=== PATIENT | male | born 1980 | race Caucasian/White ===

== ENCOUNTER 2020-05-17 12:24 | Emergency (ER) | payer OTHER, SELFPAY ==
[2020-05-17 12:35] VITALS: BP 186/114; PULSE 91; RESP 16; TEMP 36.7; O2SAT 99
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
== END 2020-05-17 12:59 | disposition home or self-care (01) ==
PROVIDERS: Emergency Provider Nurse Practitioner Family; PCP Family Medicine
DX: H16.133 Photokeratitis, bilateral (principal)
CPT/HCPCS: 99213; G0463

== ENCOUNTER 2021-02-17 10:01 | Emergency (ER) | payer OTHER, SELFPAY ==
--- NOTE | ~2021-02-17 | XR_ITS ---
XR facial bones min 3V 02/17/2021 10:42 Indication: Trauma to the right infraorbital region Procedure: 3 views of the facial bones Comparison: No prior studies for comparison. Findings: No fracture, subluxation or dislocation. Rightward nasal septal deviation. Orbits appear to be intact. The paranasal sinuses are pneumatized. No significant soft tissue abnormality. No foreign bodies. Mastoids are pneumatized. Mandible is grossly unremarkable. Impression: 1: No acute fracture identified. If there is continued concern for subtle facial fracture, correlatio n with CT recommended. Reviewed, dictated and finalized at location B. Impression: 1: No acute fracture identified. If there is continued concern for subtle facia l fracture, correlation with CT recommended.
[2021-02-17 10:12] VITALS: BP 176/104; PULSE 97; RESP 18; TEMP 36.6; O2SAT 100
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
[2021-02-17] MEDS: TETANUS,DIPHTHERIA,AC PERTUSSIS ADULT (0.5 ML) BOOSTRIX IM (10:38)
== END 2021-02-17 11:26 | disposition home or self-care (01) ==
PROVIDERS: Emergency Provider Nurse Practitioner Family
DX: S01.81XA Laceration without foreign body of other part of head, initial encounter (principal); W27.8XXA Contact with other nonpowered hand tool, initial encounter; Z23 Encounter for immunization; I10 Essential (primary) hypertension
CPT/HCPCS: 12011; 70150; 90471; 90715; 99213; G0463

== ENCOUNTER 2022-06-23 10:37 | Emergency (ER) | payer OTHER, SELFPAY ==
[2022-06-23 10:48] VITALS: BP 195/108; PULSE 79; RESP 16; TEMP 35.9; O2SAT 99
[2022-06-23 11:07] VITALS: BP 188/120
--- NOTE | 2022-06-23 11:14 | ED.HA ---
HPI - Headache General Chief Complaint: Headache Stated Complaint: Multiple Compliants Time Seen by Provider: 06/23/22 11:15 Source: patient and RN notes reviewed Mode of arrival: ambulatory Limitations: no limitations History of Present Illness HPI Narrative: 42-year-old male presented for complaint of headache and nausea, onset today. He endorses the pain is across the frontal part of his head from bahai to bahai. He denies vision changes, dizziness, vomiting, chest pain or palpitations. Endorses a history of hypertension and does not take his prescribed medications due to the side effect of ED. He does not recall the names of the medication he is supposed to be taking. He states he was on lisinopril and it was changed about 3 times. His P[facility]. He does not check his blood pressure at home. Related Data Allergies Allergy/AdvReac Type Severity Reaction Status Date / Time No Known Allergies Allergy Verified 06/23/22 10:42 Review of Systems Review of Systems: CONSTITUTIONAL: Denies body aches, fever, chills, or sweats. EYES: Denies visual changes, redness, or discharge. ENT: Denies rhinorrhea, congestion, sore throat, or otalgia. CARDIOVASCULAR: Denies chest pain, palpitations, or edema. RESPIRATORY: Denies cough or dyspnea. GASTROINTESTINAL: Denies abdominal pain, vomiting, or diarrhea. GENITOURINARY: Denies dysuria or hematuria. SKIN: Denies rash, or wounds. MUSCULOSKELETAL: Denies back pain, joint pain, or myalgia. NEUROLOGIC: Endorses headache, denies numbness, tingling, or weakness, or dizziness All systems reviewed & are unremarkable except as noted in HPI and below PMFSH Comments At time of signature, I have reviewed and agree with nursing past medical, surgical, social and family history unless otherwise noted. Please see nursing chart for further information. There is no relevant family history pertinent to the presenting complaint Exam Narrative: GENERAL: Well-appearing HEAD: Normocephalic, atraumatic. EYES: PERRLA, EOMI. ENT: Mucous membranes pink and moist. No rhinorrhea. CHEST: No respiratory distress. Clear to auscultation. HEART: Regular rate and rhythm. No murmur appreciated. Normal peripheral pulses. ABDOMEN: Soft, nontender, nondistended, normal active bowel sounds. EXTREMITIES: Normal range of motion. No edema. SKIN: Warm, dry, no rash. Capillary refill normal. Normal skin turgor. NEURO:No focal deficits. Alert and oriented x3. EOMs intact without nystagmus. No facial droop/asymmetry noted bilaterally. Grimace intact. Intact sensation in face. Hearing intact bilaterally. Shoulder shrug intact. Strength 5/5 bilateral upper extremities. Ambulatory exam with a normal based, steady gait. PSYCH: Normal affect. No signs of depression or anxiety. Course Course Emergency Course: Patient is aware of diagnosis, understands and agrees to treatment plan. Anticipatory guidance given. Portions of this record may have been created with voice recognition software Level of Care: Express Care Visit Vital Signs Vital signs: Vital Signs Temperature 96.6 F L 06/23/22 10:48 Pulse Rate 79 06/23/22 10:48 Respiratory Rate 16 06/23/22 10:48 Blood Pressure 195/108 H 06/23/22 10:48 Pulse Oximetry 99 06/23/22 10:48 Oxygen Delivery Room Air 06/23/22 10:48 Temperature 96.6 F L 06/23/22 10:48 Pulse Rate 79 06/23/22 10:48 Respiratory Rate 16 06/23/22 10:48 Blood Pressure 188/120 H 06/23/22 11:07 Pulse Oximetry 99 06/23/22 10:48 Oxygen Delivery Room Air 06/23/22 10:48 Transfer Transfered to: [facility] Transportation: Other (private vehicle) Transfer rationale: Pt is agreeable to transfer to ER for further evaluation and treatment of hypertensive urgency. Requests transfer to [facility] via private vehicle. Risks of transportation reviewed with pt including injury, worsening of condition and . v/u. will be driving pt; Report called
--- NOTE | 2022-06-23 11:31 | ECG_ITS ---
Measurements Intervals [place] Rate: 82 P: 46 WA: 162 QRS: 19 QRSD: 92 T: 178 QT: 402 QTc: 472 Interpretive Statements SINUS RHYTHM POSSIBLE LEFT ATRIAL ENLARGEMENT [-0.1mV P WAVE IN V1/V2] LEFT VENTRICULAR HYPERTROPHY AND ST-T CHANGE [VOLTAGE CRITERIA PLUS ST/T ABNORMALITY] NO PREVIOUS ECG AVAILABLE FOR COMPARISON Electronically Signed On 06-23-2022 15:27:35 CDT by Svetlana Martinez M.D.
== END 2022-06-23 11:48 | disposition short-term general hospital (02) ==
PROVIDERS: Emergency Provider Nurse Practitioner Family; PCP Family Medicine
DX: R51.9 Headache, unspecified (principal); I10 Essential (primary) hypertension
CPT/HCPCS: 93005; 99213; G0463

== ENCOUNTER 2022-07-31 11:41 | Emergency (ER) | payer OTHER, SELFPAY ==
[2022-07-31 13:10] VITALS: BP 143/91; PULSE 71; RESP 12; TEMP 36.5; O2SAT 100
--- NOTE | 2022-07-31 13:49 | ED.GENADULT ---
HPI - General Adult General Chief complaint: Upper Respiratory Infection Stated complaint: cough Time Seen by Provider: 07/31/22 13:49 Source: patient Mode of arrival: ambulatory Limitations: no limitations History of Present Illness HPI narrative: 42-year-old male patient presents to the [facility] with complaints of a cough for the past 4 days. Along with stuffy nose. Patient denies any chest pain or shortness breath. Patient states he recently quit smoking at the beginning the month. Patient unsure if he is vaccinated against COVID or flu. Patient states he has been taking Mucinex for his symptoms. Patient is refusing to get tested today for COVID-19. Related Data Home Medications Medication Instructions Recorded Confirmed amlodipine 5 mg-benazepril 10 mg 1 cap PO DAILY 07/31/22 07/31/22 capsule Allergies Allergy/AdvReac Type Severity Reaction Status Date / Time No Known Allergies Allergy Verified 07/31/22 12:54 Review of Systems Review of Systems: CONSTITUTIONAL: Denies fever, chills, or sweats. EYES: Denies visual changes, redness, or discharge. ENT: Positive rhinorrhea, congestion, denies sore throat, or otalgia. CARDIOVASCULAR: Denies chest pain, palpitations, or edema. RESPIRATORY: Positive cough, dyspnea. GASTROINTESTINAL: Denies abdominal pain, nausea, vomiting, or diarrhea. GENITOURINARY: Denies dysuria or hematuria. SKIN: Denies rash or itching. MUSCULOSKELETAL: Denies back pain, joint pain, or myalgia. NEUROLOGIC: Denies headache, numbness, or weakness. PSYCHIATRIC: Denies anxiety or depression. [facility] Past Medical History Medical History (Updated 07/31/22 @ 14:35 by KARLI Leigh) Hypertension Surgical History Surgical History (Updated 07/31/22 @ 13:51 by KARLI Leigh) History of orthopedic surgery Right ACL Comments At the time of my signature I agree with nursing past medical history, surgical, social, and family history. There is no relevant family history pertinent to the presenting complaint. Exam Narrative: GENERAL: Well-appearing, well-nourished, and in no acute distress. HEAD: Normocephalic, atraumatic. EYES: PERRLA and EOMI. ENT: Nares clear, no rhinorrhea or epistaxis. Mucous membranes moist. NECK: Supple. No lymphadenopathy CHEST: Clear to auscultation. No respiratory distress. HEART: Regular rate and rhythm. No murmur heard. Normal peripheral pulses. ABDOMEN: Soft, nontender, nondistended, normal active bowel sounds. EXTREMITIES: Normal range of motion. No edema. SKIN: Warm, dry, no rash. NEURO: No focal deficits. Alert and oriented x3. Course Course Level of Care: Express Care Visit Reevaluation(s) Reevaluation #1: Re-evaluate patient advised him that his influenza test was negative today. Discussed with him we will discharge him home with some Tesfavianon Perles to help with his cough. Discussed with patient the viruses can last anywhere from 7-10 days however he continues to have symptoms past 2 weeks I would advise him to follow-up with his primary doctor. Patient verbalized understanding denies any other questions or concerns at this time. Date: 07/31/22 Time: 14:38 Vital Signs Vital signs: Vital signs reviewed The patient has been informed that they may have pre-hypertension or Hypertension based on a BP reading in the department. I recommend that the patient call the primary care provider listed on their discharge instructions or a physician of their choice this week to arrange follow up for further evaluation of possible pre-hypertension or Hypertension Medical Decision Making MDM Narrative Medical decision making narrative: Discussed with patient our plan of care today is to test him for influenza. Patient is refusing to let assessing for COVID-19. I will reassess him once this has resulted Differential Diagnosis Differential Diagnosis: Differential diagnosis: Allergic rhinitis, chronic sinusitis, tonsillitis, acute sinusitis, infe
== END 2022-07-31 14:39 | disposition home or self-care (01) ==
PROVIDERS: Emergency Provider Nurse Practitioner Family
DX: B34.9 Viral infection, unspecified (principal); I10 Essential (primary) hypertension; Z87.891 Personal history of nicotine dependence
CPT/HCPCS: 87804; 99213; G0463

== ENCOUNTER 2023-01-01 09:45 | Emergency (ER) | payer OTHER, SELFPAY ==
--- NOTE | 2023-01-01 09:52 | ED.MALEGU ---
HPI - Male Genitourinary General Chief complaint: Urogenital-Male Stated complaint: blood in urine Time Seen by Provider: 01/01/23 09:52 Source: patient Mode of arrival: ambulatory Limitations: no limitations History of Present Illness HPI Narrative: Patient is a 42-year-old male that presents with right flank pain that started this morning. Patient having difficulty urinating due to pain. States he has urgency but is unable to go. Reports nicki blood and urine. Denies any history of kidney stones. Denies any fever, chills, nausea, vomiting, diarrhea. Denies any headache, changes in vision, shortness of breath. Related Data Home Medications Medication Instructions Recorded Confirmed amlodipine 5 mg-benazepril 10 mg 1 cap PO DAILY 07/31/22 07/31/22 capsule Allergies Allergy/AdvReac Type Severity Reaction Status Date / Time No Known Allergies Allergy Verified 01/01/23 09:52 Review of Systems Review of Systems: All systems reviewed & are unremarkable except as noted in HPI and below Constitutional: Constitutional: Denies body ache(s), Denies fever(s), Denies headache(s), Denies malaise and Denies weakness Eyes: Eyes: Denies loss of vision ENT: Denies otalgia, Denies headache(s), Denies nasal discharge, Denies sinus pain and Denies sore throat Cardiovascular: Cardiovascular: Denies chest pain, Denies irregular heart rhythm and Denies dyspnea Respiratory: Respiratory: Denies dyspnea Gastrointestinal: Gastrointestinal: Denies abdominal pain, Denies melena, Denies hematochezia, Denies diarrhea, Denies nausea and Denies vomiting Genitourinary: Genitourinary: Reports hematuria, Reports flank pain and Reports urinary urgency Musculoskeletal: Musculoskeletal: Denies back pain, Denies myalgias and Denies arthralgias Integumentary/Breasts: Skin/Breast: Denies pruritus and Denies rash Neurologic: Denies headache(s), Denies loss of vision and Denies weakness Psychiatric: Psychiatric: Reports no additional psychiatric complaints [facility] Past Medical History Medical History (Updated 01/01/23 @ 10:28 by Eryn Peres APRN) Hypertension Surgical History Surgical History (Updated 07/31/22 @ 13:51 by KARLI Leigh) History of orthopedic surgery Right ACL Comments At time of signature, agree with nursing past medical, surgical, social and family history. There is no relevant family history pertinent to the presenting complaint. Exam Const: General: cooperative, healthy appearing, comfortable, no acute distress and well nourished Nutritional Appearance: well nourished Orientation/consciousness: patient oriented x3 Limitations: no limitations HENMT: Head: normal to inspection, normocephalic and atraumatic Ears: external ears normal Face/Nose/Sinus: Normal external nose present, normal facial exam and face symmetric Face and sinus: normal facial exam and face symmetric Mouth: Yes lip normal Eyes: General: appearance normal, both eyes and all related structures Alignment and Position: alignment normal and position normal Periorbital: periorbital findings normal Eyelids: eyelids normal Pupils: Equal, round and reactive pupils present EOM: EOMs intact bilaterally Neck: Neck: normal visual inspection and full ROM Chest: Chest palpation & inspection: normal inspection of the chest Resp: Effort & Inspection: normal respiratory effort and able to speak in complete sentences Auscultation: clear to auscultation bilaterally Cardio: Rate: regular rate Rhythm: regular rhythm Heart sounds: S1 normal heart sound present and S2 normal heart sound present GI: Inspection: normal to inspection : General: Yes CVA tenderness on the right Skin: General skin exam: normal color and no rashes or lesions noted Neuro: General: patient oriented x3 and moves all extremities Cranial nerves: Yes Equal, round and reactive pupils present Speech: normal speech Gait exam (Neuro): Normal gait present Extrem
[2023-01-01 10:00] VITALS: BP 266/140; PULSE 80; RESP 16; TEMP 36.6; O2SAT 99
== END 2023-01-01 10:23 | disposition short-term general hospital (02) ==
PROVIDERS: Emergency Provider Nurse Practitioner Family
DX: R31.9 Hematuria, unspecified (principal); I10 Essential (primary) hypertension
CPT/HCPCS: 81003; 99212; G0463

== ENCOUNTER 2023-01-01 11:06 | Emergency (ER) | payer OTHER, SELFPAY ==
[2023-01-01] VITALS (16 sets, daily range): BP systolic 214–243; BP diastolic 119–142; PULSE 82–87; RESP 16–20; TEMP 36.5; O2SAT 96–100
--- NOTE | ~2023-01-01 | CT_ITS ---
EXAMINATION: CT abdomen pelvis wo con DATE: 01/01/2023 12:31 INDICATION: Hematuria, flank pain TECHNIQUE: Computed tomography (CT) of the abdomen and pelvis was performed without intravenous contr ast. The dose-length product (DLP) was 581.79 mGy-cm. Automated exposure control and iterative recons truction technique were employed. COMPARISON: None FINDINGS: Minimal dependent atelectasis is present in the lung bases. The heart size is normal. The l iver, pancreas, gallbladder, and right adrenal gland are normal. There is mild thickening of the left adrenal gland which maintains its adreniform shape. There is a 1.5 cm cyst or lymphangioma in the up per pole of the spleen. There is mild right hydroureteronephrosis mild peripelvic and periureteral fa t stranding. No stones are identified in the kidneys, ureters, or bladder. The left kidney is unremar kable. No pathologically enlarged abdominal or pelvic lymph nodes are identified. No free intraperito deirdre gas or evidence of bowel obstruction. The appendix is normal. There is mild lumbar spondylosis. There are small umbilical hernia containing fat. IMPRESSION: 1. Mild right hydroureteronephrosis without visible urolithiasis. Findings could reflect recent passa ge of right-sided stone. Reviewed, dictated and finalized at location A. IMPRESSION: 1. Mild right hydroureteronephrosis without visible urolithiasis. Findings coul d reflect recent passage of right-sided stone.
[2023-01-01] MEDS: MORPHINE SULFATE (*CRX) 4 MG/ML INJ IV PUSH (11:35)
[2023-01-01 11:41] LABS: Basophils Percent Auto 0.3 % (0.2-1.2); Eosinophils Absolute Auto 0.2 K/mm3 (0-0.3); Eosinophils Percent Auto 1.7 % (0-4.4); Hematocrit 43.7 % (42.0-52.0); Hemoglobin 15.3 g/dL (14.0-18.0); Immature Granulocyte Absolute 0.03 K/mm3 (0.00-0.031); Immature Granulocyte Percent A 0.3 % (0-0.5); Lymphocytes Absolute Auto 0.87 K/mm3 (0.9-3.2); Mean Corpuscular Hemoglobin 30.2 pg (26-34); Mean Corpuscular Volume 86.4 fl (80-100); Mean Platelet Volume 10.2 fl (7.4-10.4); Monocytes Absolute Auto 0.7 K/mm3 (0.1-0.6); Monocytes Percent Auto 8.2 % (2.6-8.5); Neutrophils Absolute Auto 6.9 K/mm3 (1.3-6.7); Neutrophils Percent Auto 79.5 % (45.5-73.1); Platelet Count Result 177 k/mm3 (150-375); Red Blood Count 5.06 M/mm3 (4.6-6.20); Red Cell Distribution Width 12.3 % (11.5-14.5); White Blood Count 8.7 K/mm3 (4.5-10.0)
[2023-01-01 11:44] LABS: Bacteria Urine None Seen /hpf; Non Pathogenic Casts 0-2; RBC Urine >100 /hpf (0-2); Squamous Epithelial Cell Urine None seen /hpf (Few); WBC Urine 0-5 /hpf
[2023-01-01 11:49] LABS: Bilirubin Urine Negative (Negative); Blood Urine 3+ (Negative); Glucose Urine UA Negative (Negative); Ketones Urine Negative (Negative); Leukocyte Esterase Ur Trace LEU/UL (Negative); Nitrate Urine Negative (Negative); Protein Urine 3+ mg/dL (Negative); Specific Grav Ur 1.007 (1.001-1.035); Urobilinogen Urine 0.2 mg/dL (<2.0); pH Urine 7.5 (5.0-9.0)
[2023-01-01 11:54] LABS: Partial Thromboplastin Time 26.4 SECONDS (22.3-36.8); Prothrombin Time 12.6 Seconds (11.1-14.7)
[2023-01-01 11:55] LABS: Appearance Urine Slightly Cloudy (Clear); Color Urine Light Red (Yellow)
[2023-01-01 11:56] LABS: Add Urine Microscopic? YES
[2023-01-01 12:19] LABS: Alanine Aminotransferase 27 U/L (6-50); Albumin Level 4.7 g/dL (3.5-5.1); Alkaline Phosphatase 62 U/L (38-126); Anion Gap 7 mmol/L (8-16); Aspartate Amino Transferase 23 U/L (17-59); Blood Urea Nitrogen 26 mg/dL (9-20); Calcium 9.4 mg/dL (8.4-10.2); Carbon Dioxide 32 mmol/L (22-30); Chloride 100 mmol/L (98-107); Estimated CRCL calculation 64 ml/min; Estimated Glomerular Filt Rate 48; Glucose 120 mg/dL (65-110); Lipase 90 U/L (23-300); Potassium 3.7 mmol/L (3.4-5.0); Sodium 139 mmol/L (137-145)
[2023-01-01 12:33] LABS: Bilirubin,Total 0.6 mg/dL (0.2-1.3)
--- NOTE | 2023-01-01 13:04 | ED.GENADULT ---
HPI - General Adult General Chief complaint: Urogenital-Male Stated complaint: hematuria Time Seen by Provider: 01/01/23 11:27 History of Present Illness HPI narrative: Patient is a 42-year-old male who presents ER with right flank pain from urgent care. Patient started having bloody urine 3 days ago. Today he developed right flank pain with it. Is no fevers chills or sweats. No blood pressure was found to be significantly elevated which is also part of his referral here. Reports he has been on medication for several weeks. He is unsure what he takes. No chest pain or chest pressure. No exertional shortness of breath or chest pain. Upon my evaluation patient is passed a bloody mass into his urine cup. It may represent a large kidney stone. There is tissue attached to it. Related Data Home Medications Medication Instructions Recorded Confirmed amlodipine 5 mg-benazepril 10 mg 1 cap PO DAILY 07/31/22 01/01/23 capsule Allergies Allergy/AdvReac Type Severity Reaction Status Date / Time No Known Allergies Allergy Verified 01/01/23 09:52 Review of Systems Constitutional: Constitutional: Denies chills, Denies fatigue and Denies fever(s) ENT: Denies nasal congestion and Denies sore throat Cardiovascular: Cardiovascular: Denies chest pain, Denies rapid heart rate and Denies radiating jaw, neck or arm pain Respiratory: Respiratory: Denies cough and Denies dyspnea Gastrointestinal: Gastrointestinal: Reports abdominal pain, Denies diarrhea, Denies nausea and Denies vomiting Genitourinary: Genitourinary: Reports hematuria, Denies dysuria and Reports urinary frequency PMFSH Past Medical History Medical History (Updated 01/01/23 @ 13:28 by Tigre Valerio MD) Hypertension Surgical History Surgical History (Updated 07/31/22 @ 13:51 by KARLI Leigh) History of orthopedic surgery Right ACL Exam Narrative: GENERAL: Well-appearing, well-nourished, and in no acute distress. HEAD: Normocephalic, atraumatic. ENT: Mucous membranes moist. CHEST: Clear to auscultation. No respiratory distress. HEART: Regular rate and rhythm. Normal peripheral pulses. ABDOMEN: Soft, nontender, nondistended. EXTREMITIES: Normal range of motion. No edema. SKIN: Warm, dry, no rash. NEURO: Alert and oriented x3. PSYCH: Normal mood and affect. Course Course Emergency Course: Pain improved with morphine. Resting comfortably. He has passed the stone. Recommend follow-up with his PCP. I will prescribe him a short course of his amlodipine, he would not be started on benazepril due to elevated creatinine. Educated on need for follow-up with PCP and repeat blood testing. Additionally a chart review showed his previous history of significantly elevated blood pressures which seem to be chronic for him if he is not on his medication. Vital Signs Vital signs: Vital Signs Temperature 97.7 F 01/01/23 11:16 Pulse Rate 87 01/01/23 11:16 Respiratory Rate 16 01/01/23 11:16 Blood Pressure 233/132 H 01/01/23 11:16 Pulse Oximetry 98 01/01/23 11:16 Oxygen Delivery Room Air 01/01/23 11:16 Temperature 97.7 F 01/01/23 11:16 Pulse Rate 83 01/01/23 11:29 Respiratory Rate 20 01/01/23 11:29 Blood Pressure 243/133 H 01/01/23 11:29 Pulse Oximetry 100 01/01/23 11:29 Oxygen Delivery Room Air 01/01/23 11:16 Medical Decision Making Vital Signs Vital Signs: Vital Signs Temperature 97.7 F 01/01/23 11:16 Pulse Rate 87 01/01/23 11:16 Respiratory Rate 16 01/01/23 11:16 Blood Pressure 233/132 H 01/01/23 11:16 Pulse Oximetry 98 01/01/23 11:16 Oxygen Delivery Room Air 01/01/23 11:16 Temperature 97.7 F 01/01/23 11:16 Pulse Rate 83 01/01/23 11:29 Respiratory Rate 20 01/01/23 11:29 Blood Pressure 243/133 H 01/01/23 11:29 Pulse Oximetry 100 01/01/23 11:29 Oxygen Delivery Room Air 01/01/23 11:16 Lab Data 01/01/23 11:31 01/01/23 11:31
== END 2023-01-01 13:47 | disposition home or self-care (01) ==
PROVIDERS: Emergency Provider Emergency Medicine; PCP Physician Assistant
DX: N13.2 Hydronephrosis with renal and ureteral calculous obstruction (principal); I10 Essential (primary) hypertension
CPT/HCPCS: 36415; 74176; 80053; 81001; 81003; 83690; 85025; 85610; 85730; 96374; 99284; J2270

== ENCOUNTER 2023-01-14 18:46 | Observation (INO) | payer OTHER, SELFPAY ==
--- NOTE | ~2023-01-14 | XR_ITS ---
EXAMINATION: XR chest 1V portable Exam Date/Time: 01/14/2023 20:00 CDT HISTORY: dyspnea Comparison: None available. RESULT: Lines, tubes, and devices: None. Lungs and pleura: Diffuse reticulonodular opacities. Cardiomediastinal silhouette: Stable. Other: No acute osseous or upper abdominal finding. IMPRESSION: Pulmonary opacities may represent bronchiolitis, as can be seen with atypical infection, asthma, aspi ration, and small airways disease. Reviewed, dictated and finalized at location K. IMPRESSION: Pulmonary opacities may represent bronchiolitis, as can be seen with atypical i nfection, asthma, aspiration, and small airways disease.
--- NOTE | ~2023-01-14 | CT_ITS ---
EXAMINATION: CTA chest PE protocol DATE: 01/14/2023 21:46 INDICATION: dyspnea, elevated troponin, elevated BNP eval PE TECHNIQUE: Computed tomography angiography (CTA) of the chest was performed with 100 mL Omnipaque-350 intravenous contrast timed to evaluate the pulmonary arteries. Coronal maximum intensity projection 3D-reconstructions were created by the technologist. The dose-length product (DLP) was 618.18 mGy-cm. Automated exposure control and iterative reconstruction technique were employed. COMPARISON: X-ray chest, same date; CT abdomen and pelvis 01/01/2023. FINDINGS: Lung parenchyma and airways: Mild diffuse reticulonodular opacities. Mild dependent atelectasis. Calc ified left lower lobe granulomas. Pleura: Unremarkable. Thoracic inlet, axillae and chest wall: Unremarkable. Thoracic aorta: Normal. Mediastinum: Right hilar lymphadenopathy. Mediastinal lymphadenopathy. Borderline enlarged left hilar lymph nodes. Heart and pericardium: Normal. Coronary artery calcifications: Absent. Upper abdomen: No significant finding. Bones: No acute osseous finding. Pulmonary arteries: Study quality: Adequate. No pulmonary emboli detected. IMPRESSION: No CT evidence of acute pulmonary embolus. Mild respiratory bronchiolitis. Right hilar and mediastina l lymphadenopathy. Reviewed, dictated and finalized at location K. IMPRESSION: No CT evidence of acute pulmonary embolus. Mild respiratory bronchiolitis. Righ t hilar and mediastinal lymphadenopathy.
--- NOTE | ~2023-01-14 | US_ITS ---
EXAMINATION: US venous doppler [facility] DATE: 01/14/2023 20:42 INDICATION: SWELLING AND PAIN . TECHNIQUE: Grayscale images without and with compression and Doppler images of the bilateral lower ex tremity veins were obtained. COMPARISON: None FINDINGS: The right common femoral vein, profunda (deep) femoral vein, femoral vein, popliteal vein, peroneal v ein, posterior tibial veins, gastrocnemius vein, and greater saphenous vein are patent. The left common femoral vein, profunda (deep) femoral vein, femoral vein, popliteal vein, peroneal v ein, posterior tibial veins, gastrocnemius vein, and greater saphenous vein are patent. IMPRESSION: 1. Patent bilateral lower extremity veins. No evidence of deep venous thrombosis. Reviewed, dictated and finalized at location K. IMPRESSION: 1. Patent bilateral lower extremity veins. No evidence of deep venous thrombos is.
[2023-01-14 18:48] VITALS: BP 196/104; PULSE 97; RESP 16; TEMP 37; O2SAT 100
--- NOTE | 2023-01-14 19:09 | ECG_ITS ---
Measurements Intervals [place] Rate: 83 P: 7 W[place]: 176 QRS: -4 QRSD: 98 T: 166 QT: 399 QTc: 469 Interpretive Statements SINUS RHYTHM DELAYED PRECORDIAL R/S TRANSITION LEFT VENTRICULAR HYPERTROPHY AND ST-T CHANGE BORDERLINE ECG COMPARED TO ECG 06/23/2022 11:36:57 NO SIGNIFICANT CHANGES Electronically Signed On 01-14-2023 21:17:29 CDT by Jonathon Arriola D.O.
--- NOTE | 2023-01-14 19:11 | ED.GENADULT ---
HPI - General Adult General Chief complaint: Extremity Problem,Nontraumatic Stated complaint: bilateral leg swelling Time Seen by Provider: 01/14/23 19:05 History of Present Illness HPI narrative: Patient 42-year-old gentleman who presents the emergency department with chief complaint of peripheral edema. Patient reports that he has prior history of hypertension and reports that for the last 3 days he has been having swelling that started in his ankles and has progressed to just below his knees. The patient states that this morning he felt some palpitations and felt as though his heart was beating fast. The patient states during this episode he also felt somewhat short of breath. Related Data Home Medications Medication Instructions Recorded Confirmed amlodipine 5 mg-benazepril 10 mg 1 cap PO DAILY 07/31/22 01/01/23 capsule Allergies Allergy/AdvReac Type Severity Reaction Status Date / Time No Known Allergies Allergy Verified 01/14/23 18:46 Review of Systems Review of Systems: A 10 system review of systems was completed on the patient and is negative except for what is stated in the HPI. Nursing and ancillary documentation was reviewed. [facility] Past Medical History Medical History Hypertension Surgical History Surgical History History of orthopedic surgery Right ACL Comments History of obstructive [facility] ap[facility] Ex[facility] Narrative: GENERAL: Well-appearing, well-nourished, and in no acute distress. HEAD: Normocephalic, atraumatic. EYES: PERRLA and EOMI. ENT: Nares clear, no rhinorrhea or epistaxis. Mucous membranes moist. NECK: Supple. CHEST: Clear to auscultation. No respiratory distress. HEART: Regular rate and rhythm. No murmur heard. Normal peripheral pulses. ABDOMEN: Soft, nontender, nondistended, normal active bowel sounds. EXTREMITIES: Normal range of motion. +1 edema. SKIN: Warm, dry, no rash. NEURO: No focal deficits. Alert and oriented x3. PSYCH: Normal mood and affect. Course Vital Signs Vital signs: Vital Signs Temperature 37.0 C 01/14/23 18:48 Pulse Rate 97 01/14/23 18:48 Respiratory Rate 16 01/14/23 18:48 Blood Pressure 196/104 H 01/14/23 18:48 Pulse Oximetry 100 01/14/23 18:48 Oxygen Delivery Room Air 01/14/23 18:48 Temperature 37.0 C 01/14/23 18:48 Pulse Rate 97 01/14/23 18:48 Respiratory Rate 16 01/14/23 18:48 Blood Pressure 196/104 H 01/14/23 18:48 Pulse Oximetry 100 01/14/23 18:48 Oxygen Delivery Room Air 01/14/23 18:48 Medical Decision Making [facility] Narrative Medical decision making narrative: Differential diagnosis includes cellulitis, peripheral edema, CHF, calcium channel calir induced peripheral edema, DVT Patient was found to have an elevated troponin and elevated BNP. EKG showed no acute ischemic changes. The patient was given aspirin and Lovenox in the emergency department given the elevated BNP and the elevated troponin a CT PE protocol was also ordered in case this is right heart strain secondary to pulmonary embolism. The case was discussed with the hospitalist and the patient will be admitted for further care. Vital Signs Vital Signs: Vital Signs Temperature 37.0 C 01/14/23 18:48 Pulse Rate 97 01/14/23 18:48 Respiratory Rate 16 01/14/23 18:48 Blood Pressure 196/104 H 01/14/23 18:48 Pulse Oximetry 100 01/14/23 18:48 Oxygen Delivery Room Air 01/14/23 18:48 Temperature 37.0 C 01/14/23 18:48 Pulse Rate 97 01/14/23 18:48 Respiratory Rate 16 01/14/23 18:48 Blood Pressure 196/104 H 01/14/23 18:48 Pulse Oximetry 100 01/14/23 18:48 Oxygen Delivery Room Air 01/14/23 18:48 Lab Data 01/14/23 19:16 01/14/23 19:16 Labs: Lab Results 01/14/23 01/14/23 Range/Units 19:16 19:17 WBC 7.2
[2023-01-14 19:26] LABS: Basophils Percent Auto 0.6 % (0.2-1.2); Eosinophils Absolute Auto 0.2 K/mm3 (0-0.3); Eosinophils Percent Auto 2.9 % (0-4.4); Hemoglobin 13.8 g/dL (14.0-18.0); Immature Granulocyte Absolute 0.01 K/mm3 (0.00-0.031); Immature Granulocyte Percent A 0.1 % (0-0.5); Lymphocytes Percent Auto 16.7 % (18.3-44.2); Mean Corpuscular HGB Conc 35.4 g/dl (32-36); Mean Corpuscular Hemoglobin 30.4 pg (26-34); Mean Corpuscular Volume 85.9 fl (80-100); Mean Platelet Volume 9.6 fl (7.4-10.4); Monocytes Absolute Auto 0.7 K/mm3 (0.1-0.6); Monocytes Percent Auto 9.5 % (2.6-8.5); Neutrophils Percent Auto 70.2 % (45.5-73.1); Platelet Count Result 202 k/mm3 (150-375); Red Blood Count 4.54 M/mm3 (4.6-6.20); Red Cell Distribution Width 12.3 % (11.5-14.5); White Blood Count 7.2 K/mm3 (4.5-10.0)
[2023-01-14 19:38] LABS: INR 0.9; Prothrombin Time 13.1 Seconds (11.1-14.7)
[2023-01-14 19:39] LABS: Partial Thromboplastin Time 25.9 SECONDS (22.3-36.8)
[2023-01-14 19:39] LABS: Anion Gap 8 mmol/L (8-16); Blood Urea Nitrogen 19 mg/dL (9-20); Carbon Dioxide 29 mmol/L (22-30); Chloride 100 mmol/L (98-107); Estimated CRCL calculation 69 ml/min; Estimated Glomerular Filt Rate > 60; Glucose 93 mg/dL (65-110); Potassium 3.3 mmol/L (3.4-5.0); Sodium 137 mmol/L (137-145)
[2023-01-14 19:48] LABS: NT Pro B Type Natriuretic Pept 447 pg/mL (19.9-100)
[2023-01-14 19:53] LABS: Troponin I 0.343 ng/mL (0.000-0.034)
[2023-01-14] MEDS: ASPIRIN 81 MG CHEWABLE TABLET 324 MG PO (20:14)
--- NOTE | 2023-01-14 21:04 | PM.IMHP ---
H&P: HPI History of Present Illness Date/Time: 01/14/23 21:04 Chief Complaint: Leg swelling Narrative: This is a 42-year-old male with past medical history significant for hypertension, obstructive sleep apnea on CPAP at nighttime, tobacco dependence, patient smokes 1 pack of cigarettes daily. Presents to the emergency room with leg swelling of a week duration, however denies PND or orthopnea, no chest pain, no cough, no sputum production, no fevers, no rigors, no chills, no nausea, no vomiting, no weight loss . Preliminary workup was significant for BNP of 447, troponins x2 0.342, and 0.209 a CTA of the chest was reported as: EXAMINATION: CTA chest PE protocol DATE: 01/14/2023 21:46 INDICATION: dyspnea, elevated troponin, elevated BNP eval PE TECHNIQUE: Computed tomography angiography (CTA) of the chest was performed with 100 mL Omnipaque-350 intravenous contrast timed to evaluate the pulmonary arteries. Coronal maximum intensity projection 3D-reconstructions were created by the technologist. The dose-length product (DLP) was 618.18 mGy-cm. Automated exposure control and iterative reconstruction technique were employed. COMPARISON: X-ray chest, same date; CT abdomen and pelvis 01/01/2023. ? FINDINGS:? Lung parenchyma and airways: Mild diffuse reticulonodular opacities. Mild dependent atelectasis. Calcified left lower lobe granulomas. Pleura: Unremarkable. Thoracic inlet, axillae and chest wall: Unremarkable. Thoracic aorta: Normal. Mediastinum: Right hilar lymphadenopathy. Mediastinal lymphadenopathy. Borderline enlarged left hilar lymph nodes. Heart and pericardium: Normal. Coronary artery calcifications: Absent. Upper abdomen: No significant finding. Bones: No acute osseous finding. Pulmonary arteries: Study quality: Adequate. No pulmonary emboli detected. IMPRESSION: No CT evidence of acute pulmonary embolus. Mild respiratory bronchiolitis. Right hilar and mediastinal lymphadenopathy. A chest x-ray was reported as: EXAMINATION:? XR chest 1V portable Exam Date/Time:? 01/14/2023 20:00 CDT HISTORY: dyspnea ? Comparison:? None available. RESULT: Lines, tubes, and devices:? None. Lungs and pleura:? Diffuse reticulonodular opacities. Cardiomediastinal silhouette:? Stable. Other:? No acute osseous or upper abdominal finding. ? IMPRESSION: Pulmonary opacities may represent bronchiolitis, as can be seen with atypical infection, asthma, aspiration, and small airways disease. EKG SINUS RHYTHM DELAYED PRECORDIAL R/S TRANSITION LEFT VENTRICULAR HYPERTROPHY AND ST-T CHANGE BORDERLINE ECG COMPARED TO ECG 06/23/2022 11:36:57 NO SIGNIFICANT CHANGES Electronically Signed On 01-14-2023 21:17:29 Patient is been placed in observation for further evaluation management and treatment. Review of Systems Review of Systems: Bilateral lower extremity swelling Constitutional: Constitutional: Denies chills, Denies fatigue, Denies fever(s), Denies lethargy, Denies malaise, Denies night sweats, Denies poor appetite, Denies weakness and Denies weight loss Eyes: Eyes: Denies change in vision ENT: Denies dysphagia and Denies odynophagia Cardiovascular: Cardiovascular: Denies chest pain, Denies irregular heart rhythm, Reports leg edema, Denies lightheadedness, Reports dyspnea on exertion, Denies orthopnea and Denies paroxysmal nocturnal dyspnea Respiratory: Respiratory: Denies chest congestion, Denies cough, Denies excessive phlegm production and Denies wheezing Gastrointestinal: Gastrointestinal: Denies abdominal pain, Denies dyspepsia, Denies heartburn, Denies diarrhea, Denies nausea and Denies vomiting Genitourinary: Genitourinary: Reports no additional male genitourinary complaints, Reports as per HPI and Denies dysuria Musculoskeletal: Musculoskeletal: Denies back pain Integumentary/Breasts: Skin/Breast: Denies rash Neurologic: Denies focal weakness and Denies Sensory deficit (Neuro) Psychiatric: Psychiat
--- NOTE | 2023-01-14 22:13 | ADMGEN ---
This patient, Jay Camejo, was admitted to IMU Room 209-01 on 01/14/23 at 2213. Patient/family oriented to hospital policies and general routines including ID bracelet, bed and alarms, visiting hours, pain management, procedures, bathroom and other care routines, personal items, smoking policy, room service/diet, and visiting hours. Information on how to activate the Rapid Response Team has been discussed. Patient/Family are encouraged to report perceived risks to care and to ask questions if they do not understand what they are told or what they should do.
[2023-01-14 22:16] VITALS: PULSE 86
[2023-01-14 22:26] VITALS: BP 189/106; PULSE 77; RESP 20; TEMP 36.4; O2SAT 99
[2023-01-14 22:27] VITALS: BMI 30.2
[2023-01-14 22:30] VITALS: PULSE 77; RESP 20; O2SAT 99
[2023-01-14] MEDS: ENOXAPARIN 1 MG/KG 90 MG SUB-Q (22:45)
[2023-01-15] VITALS (13 sets, daily range): BP systolic 141–188; BP diastolic 87–105; PULSE 69–94; RESP 16–20; TEMP 36.4–36.7; O2SAT 95–98
[2023-01-15 00:32] LABS: Troponin I 0.209 ng/mL (0.000-0.034)
[2023-01-15 04:11] LABS: Troponin I 0.156 ng/mL (0.000-0.034)
[2023-01-15 05:35] LABS: Influenza A QL RT-PCR Negative (Negative); Influenza B QL RT-PCR Negative (Negative); RSV RNA, RT-PCR Negative (Negative)
--- NOTE | 2023-01-15 06:00 | ECHO_ITS ---
Patient Info Name: Jay Camejo Age: 42 years : 1980 Gender: Male Ht: 70 in Wt: 205 lbs BSA: 2.17 m2 HR: 76 bpm BP: 110 / 60 mmHg Technical Quality: Good Exam Date: 01/15/2023 8:27 AM Exam Location: [facility] Pulmonary Patient Status: Outpatient Admit Date: 01/15/2023 Staff Ordering Physician: Kade Larson MD Ear Flap Binder: Janie Dickson RDCS Attending Provider: Adarsh Rodríguez MD Referring Physician: Marsha SINGH; Exam Type: CA echo doppler color flow Study Info Indications R06.00 - Dyspnea, unspecified Complete two-dimensional, color flow and Doppler transthoracic echocardiogram is performed. Summary 1. Complete two-dimensional, color flow and Doppler transthoracic echocardiogram is performed. 2. Normal inferior vena cava with >50% collapse upon inspiration consistent with normal right atrial pressure, 10 mmHg. 3. Left atrial chamber dimension is mildly enlarged. 4. Left ventricular systolic function is normal, estimated at 50-55%. 5. The left ventricular diastolic function is grade II diastolic dysfunction. Left Ventricle Left ventricular chamber dimension is normal. Left ventricular systolic function is normal, estimated at 50-55%. There is moderately increased left ventricular wall thickness. Left ventricular septal wall motion is normal. The left ventricular diastolic function is grade II diastolic dysfunction. Right Ventricle Right ventricular chamber dimension is normal. Right ventricular systolic function is normal. Left Atria Left atrial chamber dimension is mildly enlarged. Right Atria Right atrial chamber dimension is normal. Aortic Valve The aortic valve is trileaflet. There is no aortic valve sclerosis. There is no aortic valve stenosis. There is no aortic valve regurgitation. Pulmonic Valve The pulmonic valve is not well visualized. There is no pulmonic valve stenosis. There is no pulmonic regurgitation. Mitral Valve The mitral valve has normal leaflets. There is no mitral valve stenosis. There is no mitral valve regurgitation. Tricuspid Valve The tricuspid valve leaflets are normal. There is no significant tricuspid valve stenosis. There is no tricuspid valve regurgitation. Pericardium/Pleural The pericardium appears normal. There is no pericardial effusion. Inferior Vena Cava Normal inferior vena cava with >50% collapse upon inspiration consistent with normal right atrial pressure, 10 mmHg. Aorta The aortic root size at the sinus of Valsalva is normal. The prox ascending aorta size is normal. Tricuspid Valve Name Value Normal Estimated PAP/RSVP RA Pressure 10 mmHg <=5 Report Signatures
[2023-01-15] MEDS: ASPIRIN 81 MG CHEWABLE TABLET PO (09:11)
[2023-01-15] MEDS: hydroCHLOROthiazide 25 MG TABLET PO (09:11)
[2023-01-15] MEDS: ENOXAPARIN 100 MG/ML SYRINGE 90 MG SUB-Q ×2 (09:11→20:16)
[2023-01-15] MEDS: FUROSEMIDE INJ 40 MG/4 ML VIAL IV PUSH ×2 (09:11→17:22)
[2023-01-15] MEDS: amLODIPine BESYLATE 5 MG TABLET PO (09:12)
--- NOTE | 2023-01-15 10:08 | PM.CNPUL ---
Assessment and Plan Assessment and plan (1) Thoracic lymphadenopathy: Code(s): R59.0 - Localized enlarged lymph nodes Status: Acute Assessment and Plan: patient with a 40 pack year history of tobacco use, currently vaping since July of [address] angiogram of the chest that demonstrates mild apical predominant centrilobular and paraseptal emphysema, mild interstitial infiltrates and right hilar and mediastinal lymphadenopathy. Etiology of lymphadenopathy includes reactive, sarcoid, pathologic related to cancer, lymphoma. currently the patient is vaping which certainly is a lung injury pattern that can result in adenopathy. I have instructed him to discontinue the vaping at this time. although the patient has minimal complaints for an active pulmonary infection I would continue azithromycin and ceftriaxone while he is in the hospital and discharged him on Levaquin 750 mg p.o. q.day to finish a total of 10 days of antibiotics. Would be unusual for sarcoid 2% with unilateral hilar and mediastinal lymphadenopathy. I recommend repeat CT scan in 6-8 weeks after he is discontinue the vaping and been treated for infection To reassess this lymphadenopathy. The patient tells me he will [facility] and [facility]. (2) COPD (chronic obstructive pulmonary disease): Code(s): J44.9 - Chronic obstructive pulmonary disease, unspecified Status: Acute Assessment and Plan: the patient has a 40 pack year history of tobacco use, quit in and currently vaping. The patient has mild apical predominant Paraseptal and centrilobular emphysema. I have no PFTs. I suspect the patient has COPD and at this time he has no limitations in his activity of daily living. Recommend PFTs And the patient wishes to do his further testing [facility] the [facility]. (3) ARNALDO (obstructive sleep apnea): Code(s): G47.33 - Obstructive sleep apnea (adult) (pediatric) Status: Acute Assessment and Plan: Regarding his obstructive sleep apnea the patient was diagnosed 2 years ago and prescribed [facility]. The patient states he wears his nasal mask CPAP religiously but has not seen a doctor [facility] the [facility] for his obstructive sleep apnea in over a year. The patient does not know his CPAP settings. Of note the patient refused the hospital CPAP machine last night. I have told the patient that he should have his bring in his nasal CPAP machine from home so that he can wear this in the hospital tonight. The patient tells me he will [facility] for his [facility]. Will sign off. Call with any questions. History of Present Illness History of Present Illness Consult date: 01/15/23 Chief complaint: periphearal edema elevated troponin Narrative: 01/15/2023: This is a new pulmonary consult for mediastinal lymphadenopathy. 42-year-old with a history of hypertension, kidney stones, obstructive sleep apnea. Regarding his obstructive sleep apnea the patient was diagnosed 2 years ago and prescribed a [facility] machine [facility] The patient states he wears his nasal mask CPAP religiously but has not seen a doctor [facility] for his obstructive sleep apnea in over a year. The patient does not know his CPAP settings. Of note the patient refused the hospital CPAP machine last night. Patient tells me he has yearly episodes of bronchitis that usually hit him August. At that time he has coughing, phlegm production that ranges from clear to green and yellow. At baseline the patient states he has no respiratory limitations in his activities of daily living at that he could walk and unlimited distance. 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 Patient smoked 1 and half packs per day tobacco from age 14 to the 07/2022. for total of 40 pack years. Patient started vaping
--- NOTE | 2023-01-15 12:09 | PM.IMPN ---
Progress Note: A&P Assessment and Plan (1) Elevated troponin: Code(s): R77.8 - Other specified abnormalities of plasma proteins Status: Acute Assessment and Plan: Admit to IMU Continue to trend troponins EKG reviewed Echocardiogram in a.m. Cardiology consult (2) Tobacco dependence: Code(s): F17.200 - Nicotine dependence, unspecified, uncomplicated Status: Acute Assessment and Plan: Nicotine patch as needed (3) Hypertension: Qualifiers: Hypertension type: primary hypertension Qualified Code(s): I10 - Essential (primary) hypertension Code(s): I10 - Essential (primary) hypertension Status: Acute Assessment and Plan: Continue home meds Continue to monitor (4) Edema, peripheral: Code(s): R60.9 - Edema, unspecified Status: Acute Assessment and Plan: Unclear etiology Rule out for DVT with normal venous Doppler Will diurese Placing fluid restriction Likely related to amlodipine use. (5) Thoracic lymphadenopathy: Code(s): R59.0 - Localized enlarged lymph nodes Status: Acute Assessment and Plan: Mediastinal/ hilar lymphadenopathy No peripheral lymphadenopathy CT abdomen and pelvis with no lymphadenopathies Unclear clinical significance Sarcoid? TB QuantiFERON gold test Calcium in urine in progress Pulmonology consult (6) Bronchiolitis: Code(s): J21.9 - Acute bronchiolitis, unspecified Status: Acute Assessment and Plan: Will start on Rocephin and Zithromax Viral serology pending influenza type A type B RSV COVID Blood cultures Continue to monitor Subjective Date/time seen: 01/15/23 12:09 Interval history: No new complaints Exam Narrative: Patient is laying in a stretcher Const: General: comfortable, no acute distress, well developed, alert, awake, average body habitus and other (Well-appearing) Nutritional Appearance: average body habitus Orientation/consciousness: patient oriented x3 Other: Apprehensive HENMT: Head: normal to inspection, normocephalic and atraumatic Ears: hearing grossly normal bilaterally Face/Nose/Sinus: normal facial exam Face and sinus: normal facial exam Eyes: General: appearance normal, both eyes and all related structures Pupils: Equal, round and reactive pupils present EOM: EOMs intact bilaterally Neck: Neck: full ROM, no lymphadenopathy and no JVD Thyroid: thyroid normal Lymphatic: no lymphadenopathy noted Resp: Effort & Inspection: normal respiratory effort and able to speak in complete sentences Auscultation: clear to auscultation bilaterally Cardio: Jugular venous distension: no JVD Rate: regular rate Rhythm: regular rhythm Heart sounds: S1 normal heart sound present and S2 normal heart sound present GI: Inspection: normal to inspection : General: Yes deferred Skin: Rashes: no rashes Wounds: no wounds Neuro: General: patient oriented x3 and CN's II-XI intact bilaterally Cranial nerves: Yes CN's II-XII intact bilaterally and Yes Equal, round and reactive pupils present Cognition (Neuro): normal cognition Speech: normal speech Gait exam (Neuro): Normal gait present Motor exam (neuro): 5/5 motor strength present throughout Sensory Exam: No Sensory deficit (Neuro) Extrem: General: edema bilateral (4+) Objective Data Vital Signs Vital Signs: Vital Signs - 24 hr 01/14/23 18:48 01/14/23 22:26 01/14/23 22:30 Temperature 98.6 F 97.6 F Pulse Rate 97 77 77 Respiratory Rate 16 20 20 Blood Pressure 196/104 H 189/106 H Pulse Oximetry 100 99 99 Oxygen Delivery Room Air Room Air 01/15/23 00:00 01/14/23 22:16 01/15/23 00:00 Temperature Pulse Rate 82 86 82 Respiratory Rate Blood Pressure Pulse Oximetry Oxygen Delivery Room Air 01/15/23 01:58 01/15/23 04:00 01/15/23 04:00 Temperature 97.8 F Pulse Rate 80 75 69 Respiratory Rate 16 Blood Pressure 141/93 H Pulse Oximetry 96 Oxygen
--- NOTE | 2023-01-15 14:56 | PM.CNCAR ---
Assessment and Plan Assessment and plan (1) Hypertension: Qualifiers: Hypertension type: primary hypertension Qualified Code(s): I10 - Essential (primary) hypertension Code(s): I10 - Essential (primary) hypertension Status: Acute Plan acute on chronic diastolic heart failure likely related to uncontrolled HTN HTN poorly controlled Mildly elevated trop likely related to above Plan amlodipine 10 mg Lisinopril 20 mg daily HCTZ 25 mg daily TTE History of Present Illness History of Present Illness Consult date/time: 01/15/23 14:56 Reason For Visit: periphearal edema elevated troponin Narrative: Patient presented with bilateral LE swelling, non painful. symptoms is noticeable for last 5 days and associated with SOB and palpitations. He has HX of HTN and BP records at home has been 170 to 200 systolic. Review of Systems Review of Systems: 12 points review of system is negative except for stated above. [facility] Past Medical History Medical History Hypertension Surgical History Surgical History History of orthopedic surgery Right ACL Family History Family History (Updated 01/14/23 @ 22:29 by Alicja Jimenez RN) Father Diabetes mellitus Mother Chronic obstructive pulmonary disease Social History Social History Smoking packs per day: 1 Smoking cigarettes per day: 20.0 Years smoked: 22 Smoking pack-years: 22.00 Smoking status: Former smoker Tobacco type: cigarettes Alcohol intake: never Substance use: never Substance use type: does not use Lack of Transportation: No Lack of Food: Never True Current Housing: I Have Housing Concerned About Future Housing: No Difficulty Paying Gas/Electric Bills: No Difficulty Paying for Meds: No Currently Unemployed: No Education: Bachelor's Degree Difficulty w/ Childcare or Family Care: No Spiritual care concerns: No Meds Home Medications and Allergies Home Medications Medication Instructions Recorded Confirmed Type amlodipine 5 mg tablet 5 mg PO DAILY #14 tabs 01/01/23 01/14/23 Rx hydralazine 25 mg tablet See Rx Instructions .Route .COMPLEX 01/15/23 01/15/23 History Allergies Allergy/AdvReac Type Severity Reaction Status Date / Time No Known Allergies Allergy Verified 01/14/23 18:46 Vital Signs Vital Signs - 24 hr 01/14/23 18:48 01/14/23 22:26 01/14/23 22:30 Temperature 37.0 C 36.4 C Pulse Rate 97 77 77 Respiratory Rate 16 20 20 Blood Pressure 196/104 H 189/106 H Pulse Oximetry 100 99 99 Oxygen Delivery Room Air Room Air 01/15/23 00:00 01/14/23 22:16 01/15/23 00:00 Temperature Pulse Rate 82 86 82 Respiratory Rate Blood Pressure Pulse Oximetry Oxygen Delivery Room Air 01/15/23 01:58 01/15/23 04:00 01/15/23 04:00 Temperature 36.6 C Pulse Rate 80 75 69 Respiratory Rate 16 Blood Pressure 141/93 H Pulse Oximetry 96 Oxygen Delivery 01/15/23 04:00 01/15/23 05:30 01/15/23 08:00 Temperature Pulse Rate 69 74 Respiratory Rate 16 Blood Pressure Pulse Oximetry 96 Oxygen Delivery Room Air Room Air 01/15/23 08:00 01/15/23 13:01 01/15/23 12:00 Temperature 36.6 C 36.4 C Pulse Rate 81 94 Respiratory Rate 16 20 Blood Pressure 172/87 H 174/105 H Pulse Oximetry 96 95 Oxygen Delivery Room Air Exam Const: General: comfortable and no acute distress Other: Able to lie flat HENMT: Face/Nose/Sinus: Normal nares present and no epistaxis Mouth: Yes moist mucous membranes Eyes: Sclera: sclerae normal Pupils: Equal, round and reactive pupils present Neck: Neck: supple and no JVD Carotids: no bruits Resp: Auscultation: clear to auscultation bilaterally and lung sounds not diminished Other: No chest wall te
--- NOTE | 2023-01-15 19:34 | PC.NURSE ---
This patient, Jay Camejo, was received from IMU on 01/15/23 at 1845. Patient/family oriented to unit policies and routines. Report taken from Carly
[2023-01-15] MEDS: WATER FOR IRRIGATION, STERILE 1,000 ML BOTTLE 1000 ML (22:35)
[2023-01-15] MEDS: hydrALAZINE 12.5 MG TABLET BY MOUTH (22:42)
[2023-01-15] MEDS: hydrALAZINE HCL 25 MG TABLET BY MOUTH (22:44)
[2023-01-16] VITALS (8 sets, daily range): BP systolic 140–170; BP diastolic 86–95; PULSE 72–87; RESP 14–20; TEMP 36.3–36.9; O2SAT 97–100
[2023-01-16] MEDS: hydroCHLOROthiazide 25 MG TABLET PO (10:17)
[2023-01-16] MEDS: ASPIRIN 81 MG CHEWABLE TABLET PO (10:17)
[2023-01-16] MEDS: ENOXAPARIN 100 MG/ML SYRINGE 90 MG SUB-Q (10:17)
[2023-01-16] MEDS: FUROSEMIDE INJ 40 MG/4 ML VIAL IV PUSH (10:17)
[2023-01-16] MEDS: amLODIPine BESYLATE 5 MG TABLET 10 MG PO (10:47)
--- NOTE | 2023-01-16 11:10 | PC.NURSE ---
Addendum entered by Zulma Sales RN 01/16/23 11:32: losartan time was changed to be given at 1100 this am by pharmacy, will be daily at 0900 after today since it was ordered late. Original Note: Called pharmacy for losartan that was added to pt medications, back timed for 0900 this morning. Will give when received
[2023-01-16 11:19] LABS: Anion Gap 7 mmol/L (8-16); Blood Urea Nitrogen 20 mg/dL (9-20); Calcium 9.5 mg/dL (8.4-10.2); Carbon Dioxide 37 mmol/L (22-30); Chloride 94 mmol/L (98-107); Estimated CRCL calculation 57 ml/min; Estimated Glomerular Filt Rate 48; Glucose 108 mg/dL (65-110); Potassium 3.1 mmol/L (3.4-5.0); Sodium 138 mmol/L (137-145)
[2023-01-16] MEDS: LOSARTAN POTASSIUM 50 MG TABLET PO (11:32)
--- NOTE | 2023-01-16 11:40 | PM.DS ---
DS: Admitting Diagnosis Discharge Date January 16, 2023 Admitting Diagnosis Hypertension, DS: Discharge Diagnosis Discharge Diagnosis (1) Elevated troponin: Code(s): R77.8 - Other specified abnormalities of plasma proteins Status: Acute Assessment and Plan: Admit to IMU Continue to trend troponins EKG reviewed Echocardiogram in a.m. Cardiology consult (2) Tobacco dependence: Code(s): F17.200 - Nicotine dependence, unspecified, uncomplicated Status: Acute Assessment and Plan: Nicotine patch as needed (3) Hypertension: Qualifiers: Hypertension type: primary hypertension Qualified Code(s): I10 - Essential (primary) hypertension Code(s): I10 - Essential (primary) hypertension Status: Acute Assessment and Plan: Continue home meds Continue to monitor (4) Edema, peripheral: Code(s): R60.9 - Edema, unspecified Status: Acute Assessment and Plan: Unclear etiology Rule out for DVT with normal venous Doppler Will diurese Placing fluid restriction Likely related to amlodipine use. (5) Thoracic lymphadenopathy: Code(s): R59.0 - Localized enlarged lymph nodes Status: Acute Assessment and Plan: Mediastinal/ hilar lymphadenopathy No peripheral lymphadenopathy CT abdomen and pelvis with no lymphadenopathies Unclear clinical significance Sarcoid? TB QuantiFERON gold test Calcium in urine in progress Pulmonology consult (6) Bronchiolitis: Code(s): J21.9 - Acute bronchiolitis, unspecified Status: Acute Assessment and Plan: Will start on Rocephin and Zithromax Viral serology pending influenza type A type B RSV COVID Blood cultures Continue to monitor DS: Summary Hospital Course Hospital Course: Admitted for edema and chest pain. And have diastolic CHF. Will be sent home on new cardiac regimen, follow-up with Cardiology. To note patient did have some lymphadenopathy noted on the CT scan of his chest, no definitive mass or lesion was noted. He is fully aware of this and wants to follow up with primary care physician at the [facility] regarding this. I explained to held a follow-up CT scan as an outpatient Time Spent with Patient Time attestation: Total time spent providing and/or coordinating discharge services: Exam Narrative: Patient is laying in a stretcher Const: General: comfortable, no acute distress, well developed, alert, awake, average body habitus and other (Well-appearing) Nutritional Appearance: average body habitus Orientation/consciousness: patient oriented x3 Other: Apprehensive HENMT: Head: normal to inspection, normocephalic and atraumatic Ears: hearing grossly normal bilaterally Face/Nose/Sinus: normal facial exam Face and sinus: normal facial exam Eyes: General: appearance normal, both eyes and all related structures Pupils: Equal, round and reactive pupils present EOM: EOMs intact bilaterally Neck: Neck: full ROM, no lymphadenopathy and no JVD Thyroid: thyroid normal Lymphatic: no lymphadenopathy noted Resp: Effort & Inspection: normal respiratory effort and able to speak in complete sentences Auscultation: clear to auscultation bilaterally Cardio: Jugular venous distension: no JVD Rate: regular rate Rhythm: regular rhythm Heart sounds: S1 normal heart sound present and S2 normal heart sound present GI: Inspection: normal to inspection : General: Yes deferred Skin: Rashes: no rashes Wounds: no wounds Neuro: General: patient oriented x3 and CN's II-XI intact bilaterally Cranial nerves: Yes CN's II-XII intact bilaterally and Yes Equal, round and reactive pupils present Cognition (Neuro): normal cognition Speech: normal speech Gait exam (Neuro): Normal gait present Motor exam (neuro): 5/5 motor strength present throughout Sensory Exam: No Sensory deficit (Neuro) Extrem: General: edema bilateral (4+) DS: Data Data Completed and Pending Labs on day o
--- NOTE | 2023-01-16 12:16 | PM.PNCARD ---
Progress Note: A&P Assessment and Plan (1) Hypertension: Qualifiers: Hypertension type: primary hypertension Qualified Code(s): I10 - Essential (primary) hypertension Code(s): I10 - Essential (primary) hypertension Status: Acute Plan Assessment Acute on chronic diastolic heart failure HTN controlled CKD stage 3 Plan Change amlodipine 10 mg daily Add losartan 50 mg daily HCTZ 25 mg daily F/U renal function in clinic Subjective Date/time seen: 01/16/23 12:16 Interval history: no acute events Review of Systems Review of Systems: 12 points review of system negative Exam Const: General: comfortable and no acute distress Other: Able to lie flat HENMT: Face/Nose/Sinus: Normal nares present and no epistaxis Mouth: Yes moist mucous membranes Eyes: Sclera: sclerae normal Pupils: Equal, round and reactive pupils present Neck: Neck: supple and no JVD Carotids: no bruits Resp: Auscultation: clear to auscultation bilaterally and lung sounds not diminished Other: No chest wall tenderness Cardio: Rate: regular rate Rhythm: regular rhythm Heart sounds: no gallops, no murmurs and no rubs GI: GI Palp: Yes Soft to palpation and No Tenderness to palpation present (GI) Auscultation: normal bowel sounds Skin: General skin exam: normal color, rashes and/or lesions noted and no erythema Other: Warm Neuro: Cranial nerves: Yes Equal, round and reactive pupils present Speech: normal speech Other: No obvious focal deficit or facial asymmetry Extrem: General: no edema Other: Normal capillary refills Intact distal pulses. Objective Data Vital Signs Vital Signs: Vital Signs - 24 hr 01/15/23 13:01 01/15/23 14:00 01/15/23 16:23 Temperature 36.4 C 36.7 C Pulse Rate 94 78 80 Respiratory Rate 20 16 Blood Pressure 174/105 H 177/98 H Pulse Oximetry 95 98 Oxygen Delivery 01/15/23 16:00 01/15/23 16:00 01/15/23 20:00 Temperature 36.6 C Pulse Rate 80 82 76 Respiratory Rate 16 20 Blood Pressure 188/99 H Pulse Oximetry 98 98 Oxygen Delivery Room Air 01/15/23 20:00 01/15/23 20:00 01/15/23 23:37 Temperature Pulse Rate 77 77 89 Respiratory Rate 20 17 Blood Pressure Pulse Oximetry 98 95 Oxygen Delivery Room Air Autopap 01/16/23 00:00 01/16/23 00:45 01/16/23 02:23 Temperature 36.3 C L Pulse Rate 74 74 87 Respiratory Rate 20 14 Blood Pressure 165/93 H Pulse Oximetry 98 97 Oxygen Delivery Autopap 01/16/23 04:00 01/16/23 05:52 01/16/23 08:00 Temperature 36.5 C Pulse Rate 77 81 72 Respiratory Rate 20 Blood Pressure 140/95 H Pulse Oximetry 98 Oxygen Delivery 01/16/23 10:19 01/16/23 10:15 Temperature 36.9 C Pulse Rate 78 Respiratory Rate 18 Blood Pressure 170/92 H Pulse Oximetry 100 Oxygen Delivery Autopap Intake/Output Intake/Output: Intake & Output 01/13/23 01/14/23 01/15/23 01/16/23 23:59 23:59 23:59 23:59 Intake Total 1098 830 Output Total 4050 450 Balance -2952 380 Meds/Results Medications: Active Medications Generic Name Dose Route Start Last Admin Trade Name Isidoro PRN Reason Stop Dose Admin Amlodipine Besylate 10 mg 01/17/23 09:00 Amlodipine Besylate 5 Mg Tablet PO DAILY LADONNA Aspirin 81 mg 01/15/23 08:00 01/16/23 10:17 Aspirin 81 Mg Chewable Tablet PO 81 mg DAILY@0800 LADONNA Administration Enoxaparin Sodium 90 mg 01/15/23 09:00 01/16/23 10:17 Enoxaparin 100 Mg/Ml Syringe SUB-Q 90 mg Q12HR LADONNA Administration Furosemide 40 mg 01/15/23 09:00 01/16/23 10:17 Furosemide Inj 40 Mg/4 Ml Vial IV PUSH 40 mg BID LADONNA Administration Hydrochlorothiazide 25 mg 01/15/23 09:00 01/16/23 10:17 Hydrochlorothiazide 25 Mg Tablet PO 25 mg QAM LADONNA Administration Losartan Potassium 50 mg 01/16/23 11:00 01/16/23 11:32 Losartan Potassium 50 Mg Tablet PO 50 mg DAILY LADONNA Administration N
[2023-01-16] MEDS: POTASSIUM CHLORIDE 20 MEQ TABLET 40 MEQ PO (14:01)
[2023-01-18 13:43] LABS: NIL 0.02 IU/mL; Quantiferon TB Plus, 1T NEGATIVE (NEGATIVE)
[2023-02-02 08:53] LABS: Total Volume 5000
== END 2023-01-16 14:10 | disposition home or self-care (01) ==
LOC: ANHED 21:09 → ANHIMU 22:43 → ANH2MED 01-16 11:40 → ANHIMU 01-17 14:28
PROVIDERS: Emergency Medicine; Internal Medicine Interventional Cardiology; Admitting Provider Internal Medicine; Emergency Provider Emergency Medicine; Visit Provider Chiropractor
DX: R77.8 Other specified abnormalities of plasma proteins (principal); I11.9 Hypertensive heart disease without heart failure; R60.9 Edema, unspecified; R59.0 Localized enlarged lymph nodes; I26.99 Other pulmonary embolism without acute cor pulmonale; M25.472 Effusion, left ankle; M25.471 Effusion, right ankle; R59.1 Generalized enlarged lymph nodes; R26.2 Difficulty in walking, not elsewhere classified; J44.9 Chronic obstructive pulmonary disease, unspecified; R00.2 Palpitations; J84.89 Other specified interstitial pulmonary diseases; G47.33 Obstructive sleep apnea (adult) (pediatric); Z99.89 Dependence on other enabling machines and devices; R79.89 Other specified abnormal findings of blood chemistry; F17.210 Nicotine dependence, cigarettes, uncomplicated; Z79.899 Other long term (current) drug therapy
CPT/HCPCS: 36415; 71045; 71275; 80048; 82340; 83880; 84484; 85025; 85610; 85730; 86480; 87040; 87502; 87634; 93005; 93306; 93970; 96372; 96374; 96376; 99285; A9270; G0378; G0379; J1650; J1940; Q9967

== ENCOUNTER 2023-04-12 18:12 | Emergency (ER) | payer OTHER, SELFPAY ==
[2023-04-12 18:21] VITALS: BP 128/79; PULSE 80; RESP 16; TEMP 37.3; O2SAT 99
--- NOTE | 2023-04-12 18:38 | ED.URI ---
HPI - URI/Sore Throat General Chief Complaint: Upper Respiratory Infection Stated Complaint: COVID+ Time Seen by Provider: 04/12/23 18:38 Source: patient and RN notes reviewed Mode of arrival: ambulatory Limitations: no limitations History of Present Illness HPI Narrative: 43-year-old male presented for complaint of headache, body aches, sinus pressure/congestion, cough, fever/chills. Onset 2-3 days. States he and his tested positive for COVID at home today. Denies sob, wheezing, n/v/d. Not taking anything for symptoms. He states he wanted to confirm that test. MD elicited complaint: cough Related Data Allergies Allergy/AdvReac Type Severity Reaction Status Date / Time No Known Allergies Allergy Verified 04/12/23 18:29 Review of Systems Review of Systems: CONSTITUTIONAL: Endorses malaise, chills, sweats, fever EYES: Denies visual changes, redness, or discharge ENT: Reports rhinorrhea, congestion, sinus pain, otalgia, sore throat CARDIOVASCULAR: Denies chest pain, palpitations, edema RESPIRATORY: Reports cough, post nasal drainage. Denies dyspnea GASTROINTESTINAL: Denies abdominal pain, nausea, vomiting, diarrhea SKIN: Denies rash or itching MUSCULOSKELETAL: Endorses myalgia NEUROLOGIC: Endorses headache PMFSH Past Medical History Medical History Hypertension Surgical History Surgical History History of orthopedic surgery Right ACL Family History Family History Father Diabetes mellitus Mother Chronic obstructive pulmonary disease Social History Social History Smoking packs per day: 1 Smoking cigarettes per day: 20.0 Years smoked: 22 Smoking pack-years: 22.00 Smoking status: Former smoker Tobacco type: cigarettes Alcohol intake: never Substance use: never Substance use type: does not use Lack of Transportation: No Lack of Food: Never True Current Housing: I Have Housing Concerned About Future Housing: No Difficulty Paying Gas/Electric Bills: No Difficulty Paying for Meds: No Currently Unemployed: No Education: Bachelor's Degree Difficulty w/ Childcare or Family Care: No Spiritual care concerns: No Exam Narrative: GENERAL: Mildly ill-appearing, nontoxic no acute distress. HEAD: Normocephalic EYES: PERRLA, conjunctivae clear ENT: Mucous membranes moist. TM pearly gonzalez with dull light reflex bilaterally; no tragal tenderness. Oropharynx erythematous without lesions or exudate, no drooling, no hoarseness, no trismus, uvula midline. NECK: Supple. No lymphadenopathy CHEST: Clear to auscultation, breath sounds equal. No wheezing, rhonchi, rales, or stridor. No respiratory distress, speaks in full sentences. HEART: Regular rate and rhythm. No murmur heard. SKIN: Warm, dry, no rash. NEURO: Alert and oriented x3. PSYCH: Normal mood and affect Course Course Emergency Course: Patient is aware of diagnosis, understands and agrees to treatment plan. Anticipatory guidance given. Patient agrees to follow-up as directed and is aware of reasons to seek care at the emergency department. Portions of this record may have been created with voice recognition software Level of Care: Express Care Visit Vital Signs Vital signs: Vital Signs Temperature 99.1 F 04/12/23 18:21 Pulse Rate 80 04/12/23 18:21 Respiratory Rate 16 04/12/23 18:21 Blood Pressure 128/79 04/12/23 18:21 Pulse Oximetry 99 04/12/23 18:21 Oxygen Delivery Room Air 04/12/23 18:21 Temperature 99.1 F 04/12/23 18:21 Pulse Rate 80 04/12/23 18:21 Respiratory Rate 16 04/12/23 18:21 Blood Pressure 128/79 04/12/23 18:21 Pulse Oximetry 99 04/12/23 18:21 Oxygen Delivery Room Air 04/12/23 18:21 reviewed MDM - URI/Jennifer Jay
== END 2023-04-12 18:56 | disposition home or self-care (01) ==
PROVIDERS: Emergency Provider Nurse Practitioner Family
DX: U07.1 COVID-19 (principal); Z87.891 Personal history of nicotine dependence; I10 Essential (primary) hypertension
CPT/HCPCS: 87426; 99213; C9803; G0463

== ENCOUNTER 2023-04-28 18:16 | Emergency (ER) | payer OTHER, SELFPAY ==
--- NOTE | ~2023-04-28 | XR_ITS ---
EXAM: XR shoulder LT min 2V, XR humerus LT DATE: 04/28/2023 18:43 (accession [id number]), 04/28/2023 18:42 (accession [id number]) HISTORY: fall, pain lateral lt shoulder to mid lt humerus . COMPARISON: None available. FINDINGS: Normal mineralization. No fracture or dislocation. No lytic or blastic lesion. Moderate AC joint and mild glenohumeral joint osteoarthritis. No erosion or periosteal change. Soft tissues with in normal limits. IMPRESSION: No acute osseous finding in the left shoulder or left humerus. Reviewed, dictated and finalized at location K. IMPRESSION: No acute osseous finding in the left shoulder or left humerus.
--- NOTE | 2023-04-28 18:20 | ED.GENADULT ---
HPI - General Adult General Chief complaint: Extremity Injury, Upper Stated complaint: Left Shoulder Pain Time Seen by Provider: 04/28/23 18:24 Source: patient, RN notes reviewed and old records reviewed Mode of arrival: ambulatory Limitations: no limitations History of Present Illness HPI narrative: 43-year-old male presents to the [facility] with complaints of left shoulder pain that started 3 hours prior to arrival. Tenderness to mid humerus to lateral shoulder. Patient states he slipped and fell with an outstretched arm backwards. Did not hit head. No loss of consciousness tripped. Denies chest pain or abdominal pain. No midline tenderness Onset (ago): hour(s) (3) Related Data Allergies Allergy/AdvReac Type Severity Reaction Status Date / Time No Known Allergies Allergy Verified 04/28/23 18:22 Review of Systems Review of Systems: All systems reviewed & are unremarkable except as noted in HPI and below Constitutional: Constitutional: Reports no additional constitutional complaints Eyes: Eyes: Reports no additional eye complaints ENT: Reports system reviewed and no additional complaints, except as documented Cardiovascular: Cardiovascular: Reports no additional cardiovascular complaints, Denies chest pain and Denies dyspnea Respiratory: Respiratory: Reports no additional respiratory complaints, Denies chest congestion, Denies cough and Denies dyspnea Gastrointestinal: Gastrointestinal: Reports no additional gastrointestinal complaints, Denies abdominal pain, Denies nausea and Denies vomiting Musculoskeletal: Musculoskeletal: Reports as per HPI and Reports arthralgias (Left shoulder) Integumentary/Breasts: Skin/Breast: Reports system reviewed and no additional complaints, except as docu Neurologic: Reports system reviewed and no additional complaints, except as documented Psychiatric: Psychiatric: Reports no additional psychiatric complaints Allergic/Immunologic: Allergic/Immunologic: Reports no additional allergic/immunologic complaints [facility] Past Medical History Medical History Hypertension Surgical History Surgical History History of orthopedic surgery Right ACL Family History Family History Father Diabetes mellitus Mother Chronic obstructive pulmonary disease Social History Social History Smoking packs per day: 1 Smoking cigarettes per day: 20.0 Years smoked: 22 Smoking pack-years: 22.00 Smoking status: Former smoker Tobacco type: cigarettes Alcohol intake: never Substance use: never Substance use type: does not use Lack of Transportation: No Lack of Food: Never True Current Housing: I Have Housing Concerned About Future Housing: No Difficulty Paying Gas/Electric Bills: No Difficulty Paying for Meds: No Currently Unemployed: No Education: Bachelor's Degree Difficulty w/ Childcare or Family Care: No Spiritual care concerns: No Comments At the time of my signature, I reviewed and agree with the nursing past medical, surgical, social, and family history. There is no relevant family history pertinent to the patient complaint. Exam Const: General: cooperative, healthy appearing, comfortable, no acute distress, well developed, alert and well nourished Nutritional Appearance: well nourished Orientation/consciousness: patient oriented x3 Limitations: no limitations HENMT: Head: normal to inspection Ears: hearing grossly normal bilaterally and external ears normal Face/Nose/Sinus: Normal external nose present, Normal nares present, Normal nasal mucous membranes and turbinates present and normal facial exam Face and sinus: normal facial exam Eyes: General: appearance normal, both eyes and all related structures Alignment and Position: ali
[2023-04-28 18:21] VITALS: BP 129/84; PULSE 94; RESP 16; TEMP 37.4; O2SAT 98
== END 2023-04-28 19:12 | disposition home or self-care (01) ==
PROVIDERS: Emergency Provider Nurse Practitioner
DX: S46.912A Strain of unspecified muscle, fascia and tendon at shoulder and upper arm level, left arm, initial encounter (principal); W01.0XXA Fall on same level from slipping, tripping and stumbling without subsequent striking against object, initial encounter; I10 Essential (primary) hypertension; Z87.891 Personal history of nicotine dependence
CPT/HCPCS: 73030; 73060; 99213; G0463

== ENCOUNTER 2023-04-29 17:32 | Emergency (ER) | payer OTHER, SELFPAY ==
--- NOTE | ~2023-04-29 | XR_ITS ---
EXAM: XR shoulder LT min 2V DATE: 04/29/2023 17:53 HISTORY: fall last P.M. with Lt shoulder pain and decreased ROM . COMPARISON: 04/28/2023. FINDINGS: Normal mineralization. No fracture or dislocation. No lytic or blastic lesion. 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 No erosion or periosteal change. Soft tissues within normal limits. IMPRESSION: No acute osseous finding in the left shoulder. Reviewed, dictated and finalized at location K.
[2023-04-29 17:37] VITALS: BP 148/96; PULSE 81; RESP 15; TEMP 36.7; O2SAT 99
--- NOTE | 2023-04-29 18:28 | ED.GENADULT ---
HPI - General Adult General Chief complaint: Extremity Injury, Upper Stated complaint: left should injury Time Seen by Provider: 04/29/23 17:50 Source: patient Mode of arrival: ambulatory Limitations: no limitations History of Present Illness HPI narrative: This is a 43-year-old male who presents to the ED with chief complaint of a left shoulder injury that occurred yesterday. He was seen in urgent care and had negative x-rays at that time but was still having significant difficulty with range of motion and pain so he came here today. Patient states that yesterday he accidentally tripped backwards and landed onto his arms behind him. He then had pain in the left shoulder and denies any further site of pain or injury. Denies numbness or weakness. Related Data Allergies Allergy/AdvReac Type Severity Reaction Status Date / Time No Known Allergies Allergy Verified 04/28/23 18:22 Review of Systems Review of Systems: All systems as dictated in HPI PMFSH Past Medical History Medical History Hypertension Surgical History Surgical History History of orthopedic surgery Right ACL Family History Family History Father Diabetes mellitus Mother Chronic obstructive pulmonary disease Social History Social History Smoking packs per day: 1 Smoking cigarettes per day: 20.0 Years smoked: 22 Smoking pack-years: 22.00 Smoking status: Former smoker Tobacco type: cigarettes Alcohol intake: never Substance use: never Substance use type: does not use Lack of Transportation: No Lack of Food: Never True Current Housing: I Have Housing Concerned About Future Housing: No Difficulty Paying Gas/Electric Bills: No Difficulty Paying for Meds: No Currently Unemployed: No Education: Bachelor's Degree Difficulty w/ Childcare or Family Care: No Spiritual care concerns: No Exam Narrative: GENERAL: Well-appearing, well-nourished, and in no acute distress. HEAD: Normocephalic, atraumatic. EYES: PERRLA and EOMI. ENT: Nares clear, no rhinorrhea or epistaxis. Mucous membranes moist. Oropharynx without tonsillar hypertrophy exudate or other lesions. NECK: Supple. No adenopathy or masses. CHEST: No respiratory distress. Clear to auscultation. No wheezes rales or rhonchi HEART: Regular rate and rhythm. No murmur heard. Normal peripheral pulses. ABDOMEN: Soft, nontender, nondistended, normal active bowel sounds. MSK: RUE: Benign LUE: Significantly decreased active range of motion. He is unable to abduct or flex the shoulder past 15 degrees. Significant pain with passive range of motion in these baker as well. Mild tenderness throughout the shoulder. No deformity or bruising. Neurovascular intact distally. Biceps intact. SKIN: Warm, dry, no rash. NEURO: Alert and oriented x3. No focal deficits. PSYCH: Normal mood and affect. Course Vital Signs Vital signs: Vital Signs Temperature 98.0 F 04/29/23 17:37 Pulse Rate 81 04/29/23 17:37 Respiratory Rate 15 04/29/23 17:37 Blood Pressure 148/96 H 04/29/23 17:37 Pulse Oximetry 99 04/29/23 17:37 Oxygen Delivery Room Air 04/29/23 17:37 Temperature 98.0 F 04/29/23 17:37 Pulse Rate 81 04/29/23 17:37 Respiratory Rate 15 04/29/23 17:37 Blood Pressure 148/96 H 04/29/23 17:37 Pulse Oximetry 99 04/29/23 17:37 Oxygen Delivery Room Air 04/29/23 17:37 Medical Decision Making MDM Narrative Medical decision making narrative: This is a 43-year-old male who presents to the ED with chief complaint of left shoulder pain following an injury yesterday. Vitals are normal. Exam shows significantly decreased active range of motion of that left shoulder. X-rays at urgent care yesterday and x-ray
== END 2023-04-29 18:59 | disposition home or self-care (01) ==
PROVIDERS: Emergency Provider Physician Assistant; PCP Physician Assistant
DX: S49.92XA Unspecified injury of left shoulder and upper arm, initial encounter (principal); I10 Essential (primary) hypertension; Z87.891 Personal history of nicotine dependence; W01.0XXA Fall on same level from slipping, tripping and stumbling without subsequent striking against object, initial encounter
CPT/HCPCS: 73030; 99283; A4565

== ENCOUNTER 2023-05-14 10:27 | Outpatient (CLI) | payer OTHER, SELFPAY ==
--- NOTE | ~2023-05-14 | MR_ITS ---
MRI of the left shoulder Technique: Axial proton-density fat-sat images, coronal proton density fat-sat and T2 fat-sat images, and sagittal T1-weighted and T2 fat-sat images were acquired. Clinical History: Pain Findings: There is advanced AC joint degenerative change, with subacromial spur and bony productive c hange at the distal clavicle. Coracoclavicular, coracoacromial, and coracohumeral ligaments are intac t. There is extensive full-thickness tearing of the supraspinatus tendon, with the area of tear measurin g approximately 1.8 x 2.7 cm in extent. Infraspinatus tendon is intact, without partial or full-thick ness tear. Subscapularis tendon is intact. Tendon of the long head of the biceps is intact. No labral tear identified. Inferior glenohumeral ligament is intact. There is fluid distention of subacromial/subdeltoid bursa l ikely related to aforementioned rotator cuff tear. No muscle atrophy or edema evident. No degenerativ e change of the glenohumeral joint. Impression: Probable extensive full-thickness tear of the supraspinatus tendon, as detailed above. Associated fluid distention of the subacromial/subdeltoid bursa. Severe AC joint degenerative change. Reviewed, dictated and finalized at location . Impression: Probable extensive full-thickness tear of the supraspinatus tendon, as detailed above. Associated fluid distention of the subacromial/subdeltoid bursa. Severe AC joint degenerative change.
== END 2023-05-14 10:28 | disposition home or self-care (01) ==
PROVIDERS: PCP Nurse Practitioner Family; Visit Provider Nurse Practitioner
DX: S49.92XA Unspecified injury of left shoulder and upper arm, initial encounter (principal); M25.512 Pain in left shoulder
CPT/HCPCS: 73221

== ENCOUNTER 2023-06-28 09:00 | Outpatient (RCR) | payer OTHER, SELFPAY ==
[2023-05-31 08:59] VITALS: BP_SYST 100
--- NOTE | 2023-05-31 09:59 | OPREHPOC ---
Outpatient Therapy Plan of Care This is a Multidisciplinary Plan of Care that may contain components documented by all disciplines (PT, OT, and ST.) PT Problem 1 PT Problem #1 Knowledge Deficit PT Goal 1 Goal Pt to be IND with issued HEP Target Visit 8 PT Problem 2 PT Problem #2 Pain PT Goal 1 Goal Pt to report shoulder pain no greater than 4/10 in the last week Target Visit 8 PT Goal 2 Goal Pt to report 75% improvement in overall symptoms Target Visit 8 PT Problem 3 PT Problem #3 Impaired Range of Motion PT Goal 1 Goal Pt to improve active shoulder flexion to 130 deg Target Visit 8 PT Goal 2 Goal Pt to improve active shoulder abduction to 120 deg Target Visit 8 PT Problem 4 PT Problem #4 Impaired Strength PT Goal 1 Goal Pt to be able to lift 5lb overhead without compensations Target Visit 8 PT Goal 2 Goal Pt to demonstrate shoulder strength grossly 4/5 Target Visit 8
--- NOTE | 2023-05-31 09:59 | PTOPEVAL1 ---
Assessment and note entered by Charan Skinner, PT, DPT Evaluation Information Assessment Status Evaluation Diagnosis L shoulder pain Onset 1 month Subjective Information Pt states he has a torn rotator cuff. Imaging shows an extensive full thickness supraspinatus tear. Pt states he slipped and fell about a month ago in his garage but his provider things this is more wear and tear injury. 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 He states his shoulder hurts 100% of the time. Pt reports his shoulder is a 15/10 at the worst and if feels like someone is trying to cut his arm off. Reported Pain Level Pain Score 4: Self Report Assessment PT Clinical Summary Jay presents to therapy today for his initial evaluation with a diagnosis of L shoulder tendonitis. Today he demonstrates significant ROM and strength deficits in his L shoulder when compared to his R. His L shoulder has active flexion to 55 deg and active abduction to 45 deg. He also demonstrates forward and rounded shoulders with an increase thoracic kyphosis. Skilled therapy services are indicated to address the deficits noted above, to manage pain, to improve mobility, and to return to PLOF. Plan of Care Interventions Electrical Stimulation,Hot Pack/Cold Pack,Manual Therapy,Neuro Re-education,Patient/Caregiver Educati,Therapeutic Activities,Therapeutic Exercise PT Services Indicated Yes Treatment Frequency and 2x/wk for 8 visits Duration These treatments will address the objective and functional deficits as defined above. The patient will be advanced safely and appropriately in order for the patient to progress towards his/her prior level of function. Additional exercises will be introduced and as well as a comprehensive home exercise program upon discharge, if needed, ?to ensure carryover of functional gains achieved in the clinic. This treatment plan has been reviewed and agreement upon by the patient.
--- NOTE | 2023-06-20 09:00 | PCPTNOTE ---
Pt no showed visit today, tried to call and leave message but vm was cut off.
[2023-06-28 09:01] VITALS: BP_SYST 92
--- NOTE | 2023-06-28 09:43 | PTOPPROG ---
Assessment and note entered by Charan Skinner, PT, DPT Evaluation Information Assessment Status Progress Diagnosis L shoulder pain Onset 1 month Subjective Information Pt states states his ROM has improved a little bit since starting therapy but his pain and functional limitations have remained unchanged. Pt states he is now able to reach over his head, slowly and with pain. Pt reports 7/10 pain at rest and 10/10 with activity. Assessment PT Clinical Summary Jay presents to therapy today for his progress report following 7 visits of skilled therapy to treat his diagnosis of L shoulder tendonitis. Today he demonstrates improved active ROM, but still has significant limitations compared to his uninvolved side. He demonstrates decreased passive ROM compared to his initial evaluation. He reports no improvement in his pain reports. It is recommended that pt follow up with ortho prior to continuing therapy. Plan of Care Interventions Electrical Stimulation,Hot Pack/Cold Pack,Manual Therapy,Neuro Re-education,Patient/Caregiver Educati,Therapeutic Activities,Therapeutic Exercise PT Services Indicated Yes Treatment Frequency and 2x/wk for 8 visits pending ortho follow up. Duration These treatments will address the objective and functional deficits as defined above. The patient will be advanced safely and appropriately in order for the patient to progress towards his/her prior level of function. Additional exercises will be introduced and as well as a comprehensive home exercise program upon discharge, if needed, ?to ensure carryover of functional gains achieved in the clinic. This treatment plan has been reviewed and agreement upon by the patient.
--- NOTE | 2023-07-13 09:37 | PTOPDC ---
Assessment and note entered by Charan Skinner, PT, DPT Evaluation Information Assessment Status Discharge - Pt Not Present Diagnosis L shoulder pain Onset 1 month Subjective Information Called pt to follow up on orthopedic consult. Pt states he will be having surgery soon, he states he does not wish to continue with therapy until surgery. Assessment PT Clinical Summary Jay completed 8 visits of skilled therapy from 05/31/23 to 06/28/23. He will be discharged at this time per pt request.
== END 2023-07-13 10:42 | disposition home or self-care (01) ==
LOC: ANHGOSHPT 09:00
PROVIDERS: PCP Nurse Practitioner Family; Visit Provider Nurse Practitioner
DX: M75.52 Bursitis of left shoulder (principal); M67.919 Unspecified disorder of synovium and tendon, unspecified shoulder
CPT/HCPCS: 97014; 97110; 97140; 97161; 97530; 99199; G0283

== ENCOUNTER 2023-08-23 18:19 | Emergency (ER) | payer OTHER, SELFPAY ==
--- NOTE | 2023-08-23 18:20 | ED.URI ---
HPI - URI/Sore Throat General Chief Complaint: Upper Respiratory Infection Stated Complaint: Sore Throat Time Seen by Provider: 08/23/23 18:52 Source: patient, RN notes reviewed and old records reviewed Mode of arrival: ambulatory Limitations: no limitations History of Present Illness HPI Narrative: 43-year-old male presents to the [facility] with sore throat, cough, congestion for over week. Patient states that his symptoms got a lot worse yesterday. reports and daughter were here yesterday, treated with antibiotics for a bacterial sinusitis. Patient reports having recent rotator cuff surgery. Related Data Home Medications Medication Instructions Recorded Confirmed empagliflozin 10 mg tablet 10 mg PO DAILY 05/05/23 08/23/23 oxycodone 5 mg tablet 5 mg PO Q4H 08/23/23 08/23/23 Allergies Allergy/AdvReac Type Severity Reaction Status Date / Time No Known Allergies Allergy Verified 08/23/23 18:29 Review of Systems Review of Systems: All systems reviewed & are unremarkable except as noted in HPI and below Constitutional: Constitutional: Reports no additional constitutional complaints Eyes: Eyes: Reports no additional eye complaints ENT: Reports as per HPI, Reports facial pain, Reports nasal congestion and Reports nasal discharge Cardiovascular: Cardiovascular: Reports no additional cardiovascular complaints, Denies chest pain and Denies dyspnea Respiratory: Respiratory: Reports as per HPI, Denies chest congestion, Reports cough and Denies dyspnea Gastrointestinal: Gastrointestinal: Reports no additional gastrointestinal complaints, Denies abdominal pain, Denies nausea and Denies vomiting Musculoskeletal: Musculoskeletal: Reports no additional musculoskeletal complaints Integumentary/Breasts: Skin/Breast: Reports system reviewed and no additional complaints, except as docu Neurologic: Reports system reviewed and no additional complaints, except as documented Psychiatric: Psychiatric: Reports no additional psychiatric complaints Allergic/Immunologic: Allergic/Immunologic: Reports no additional allergic/immunologic complaints [facility] Past Medical History Medical History Hypertension Left rotator cuff tear Surgical History Surgical History History of orthopedic surgery Left ACL History of tonsillectomy Family History Family History Father Diabetes mellitus Hypertension Mother Chronic obstructive pulmonary disease Hypertension Social History Social History Smoking packs per day: 1 Smoking cigarettes per day: 20.0 Years smoked: 22 Smoking pack-years: 22.00 Smoking status: Former smoker Tobacco type: cigarettes Smoking end date: 07/13/22 Alcohol intake: current Alcohol use details: occasionally Substance use: never Substance use type: does not use Lack of Transportation: No Lack of Food: Never True Current Housing: I Have Housing Concerned About Future Housing: No Difficulty Paying Gas/Electric Bills: No Difficulty Paying for Meds: No Currently Unemployed: No Education: Trade/Vocational Certificate Difficulty w/ Childcare or Family Care: No Living arrangements: with family Occupation/Education: occupation 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 There is no relevant family history pertinent to the patient complaint. Exam Const: General: cooperative, healthy appearing, comfortable, no acute distress, well developed, alert and well nourished Nutritional Appearance: well nourished Orientation/consciousness: patient oriented x3 Limitations: no limitations YAMILKA
[2023-08-23 18:23] VITALS: BP 165/104; PULSE 88; RESP 16; TEMP 37.1; O2SAT 100
== END 2023-08-23 19:06 | disposition home or self-care (01) ==
PROVIDERS: Emergency Provider Nurse Practitioner
DX: J40 Bronchitis, not specified as acute or chronic (principal); J01.40 Acute pansinusitis, unspecified; Z87.891 Personal history of nicotine dependence; I10 Essential (primary) hypertension
CPT/HCPCS: 99213; G0463

== ENCOUNTER 2023-10-25 10:57 | Emergency (ER) | payer OTHER, SELFPAY ==
[2023-10-25 11:20] VITALS: BP 175/98; PULSE 102; RESP 16; TEMP 37.7; O2SAT 99
--- NOTE | 2023-10-25 11:31 | ED.MALEGU ---
HPI - Male Genitourinary General Chief complaint: Urogenital-Male Stated complaint: Fever Source: patient and RN notes reviewed Mode of arrival: ambulatory Limitations: no limitations History of Present Illness HPI Narrative: 43 y/o male presented for c/o 'peeing blood' today, and fever since yesterday. Endorses temp up to 101.9 last night. Endorses pain/burning with urination, frequency, and starting/stopping urinating. Denies flank pain, abdominal pain, n/v. Follows with nephrology at [place] for hx renal stones. Related Data Home Medications Medication Instructions Recorded Confirmed empagliflozin 10 mg tablet 10 mg PO DAILY 05/05/23 10/25/23 oxycodone 5 mg tablet 5 mg PO Q4H 08/23/23 10/25/23 Allergies Allergy/AdvReac Type Severity Reaction Status Date / Time No Known Allergies Allergy Verified 10/25/23 10:59 Review of Systems Review of Systems: CONSTITUTIONAL: Denies body aches reports fever CARDIOVASCULAR: Denies chest pain, palpitations, or edema. RESPIRATORY: Denies cough or dyspnea. GASTROINTESTINAL: Denies abdominal pain, nausea, vomiting, or diarrhea. GENITOURINARY: Reports dysuria, frequency, urgency, hematuria, denies flank pain SKIN: Denies rash, itching, or wounds. MUSCULOSKELETAL: Denies back pain or myalgia. [facility] Past Medical History Medical History COPD (chronic obstructive pulmonary disease) Hypertension Hypertension Left rotator cuff tear Surgical History Surgical History History of orthopedic surgery Left ACL History of tonsillectomy Family History Family History Father Diabetes mellitus Hypertension Mother Chronic obstructive pulmonary disease Hypertension Social History Social History Smoking packs per day: 1 Smoking cigarettes per day: 20.0 Years smoked: 22 Smoking pack-years: 22.00 Smoking status: Former smoker Tobacco type: cigarettes Smoking end date: 07/13/22 Alcohol intake: current Alcohol use details: occasionally Substance use: never Substance use type: does not use Lack of Transportation: No Lack of Food: Never True Current Housing: I Have Housing Concerned About Future Housing: No Difficulty Paying Gas/Electric Bills: No Difficulty Paying for Meds: No Currently Unemployed: No Education: Trade/Vocational Certificate Difficulty w/ Childcare or Family Care: No Living arrangements: with family Occupation/Education: occupation 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 Please see nursing chart for further information. There is no relevant family history pertinent to the presenting complaint Exam Narrative: GENERAL: Well-appearing ENT: Mucous membranes pink and moist. NECK: Normal AROM. Supple. CHEST: No respiratory distress. Clear to auscultation. HEART: Regular rate and rhythm. ABDOMEN: Soft, nontender, nondistended, normal active bowel sounds. No CVA tenderness SKIN: Warm, dry, no rash. NEURO: No focal deficits. Alert and oriented x3. Gait steady. Course Course Emergency Course: Patient is aware of diagnosis, understands and agrees to treatment plan. Anticipatory guidance given. Patient agrees to follow-up as directed and is aware of reasons to seek care at the emergency department. Portions of this record may have been created with voice recognition software Level of Care: Express Care Visit Vital Signs Vital signs: Vital Signs Oxygen Delivery Room Air 10/25/23 11:15 Temperature 99.8 F H 10/25/23 11:20 Pulse Rate 102 H 10/25/23 11:20 Respiratory Rate 16
[2023-10-25 11:38] LABS: Glucose Point of Care 109 mg/dl (65-105)
== END 2023-10-25 12:05 | disposition home or self-care (01) ==
PROVIDERS: Emergency Provider Nurse Practitioner Family
DX: R31.9 Hematuria, unspecified (principal); I10 Essential (primary) hypertension; J44.9 Chronic obstructive pulmonary disease, unspecified; Z79.891 Long term (current) use of opiate analgesic; Z87.891 Personal history of nicotine dependence
CPT/HCPCS: 81003; 82948; 87077; 87086; 87186; 99213; G0463

== ENCOUNTER 2023-10-30 15:23 | Emergency (ER) | payer OTHER, SELFPAY ==
--- NOTE | 2023-10-30 15:24 | ED.URI ---
HPI - URI/Sore Throat General Chief Complaint: Upper Respiratory Infection Stated Complaint: Cough/Sinus Time Seen by Provider: 10/30/23 15:52 Source: patient and RN notes reviewed Mode of arrival: ambulatory Limitations: no limitations History of Present Illness HPI Narrative: 43-year-old male presents with concern for 3 day history of nasal congestion, drainage,, body aches, fevers and chills. He has not taken any medications for his symptoms. He denies known sick contacts. MD elicited complaint: cough and rhinorrhea Related Data Home Medications Medication Instructions Recorded Confirmed empagliflozin 10 mg tablet 10 mg PO DAILY 05/05/23 10/30/23 amoxicillin 875 mg-potassium 1 tablet PO BID 10/30/23 10/30/23 clavulanate 125 mg tablet Allergies Allergy/AdvReac Type Severity Reaction Status Date / Time No Known Allergies Allergy Verified 10/30/23 15:25 Review of Systems Review of Systems: CONSTITUTIONAL: Reports malaise, chills, fever. EYES: Denies visual changes, redness, or discharge. ENT: Reports rhinorrhea, congestion CARDIOVASCULAR: Denies chest pain, palpitations, or edema. RESPIRATORY: Reports cough. Denies dyspnea. GASTROINTESTINAL: Denies abdominal pain, nausea, vomiting, diarrhea SKIN: Denies rash or itching. MUSCULOSKELETAL: Reports myalgia. NEUROLOGIC: Reports headache. All systems reviewed & are unremarkable except as noted in HPI and below PMFSH Past Medical History Medical History COPD (chronic obstructive pulmonary disease) Hypertension Hypertension Left rotator cuff tear Surgical History Surgical History History of orthopedic surgery Left ACL History of tonsillectomy Family History Family History Father Diabetes mellitus Hypertension Mother Chronic obstructive pulmonary disease Hypertension Social History Social History Smoking packs per day: 1 Smoking cigarettes per day: 20.0 Years smoked: 22 Smoking pack-years: 22.00 Smoking status: Former smoker Tobacco type: cigarettes Smoking end date: 07/13/22 Alcohol intake: current Alcohol use details: occasionally Substance use: never Substance use type: does not use Lack of Transportation: No Lack of Food: Never True Current Housing: I Have Housing Concerned About Future Housing: No Difficulty Paying Gas/Electric Bills: No Difficulty Paying for Meds: No Currently Unemployed: No Education: Trade/Vocational Certificate Difficulty w/ Childcare or Family Care: No Living arrangements: with family Occupation/Education: occupation 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 There is no relevant family history pertinent to the presenting complaint Exam Narrative: GENERAL: Well-appearing, well-nourished, and in no acute distress. HEAD: Normocephalic EYES: PERRLA, conjunctivae clear ENT: Nares clear, turbinates edematous and erythematous, clear discharge. Mucous membranes moist. TM pearly gonzalez with sharp light reflex bilaterally; no tragal tenderness. Oropharynx not erythematous without lesions. Tonsils not enlarged and without exudate, no drooling, no hoarseness, no trismus, uvula midline. NECK: Supple. No lymphadenopathy CHEST: Clear to auscultation, breath sounds equal. No wheezing, rhonchi, rales, or stridor. No respiratory distress, speaks in full sentences. HEART: Regular rate and rhythm. No murmur heard. SKIN: Warm, dry, no rash. NEURO: Alert and oriented x3. PSYCH: Normal mood and affect Course Course Emergency Course: Patient is aware of diagnosis, understands and agrees to treatment plan. Kana purcell
[2023-10-30 15:47] VITALS: BP 137/93; PULSE 105; RESP 18; TEMP 37.3; O2SAT 100
== END 2023-10-30 16:10 | disposition home or self-care (01) ==
PROVIDERS: Emergency Provider Nurse Practitioner
DX: J10.1 Influenza due to other identified influenza virus with other respiratory manifestations (principal); J44.9 Chronic obstructive pulmonary disease, unspecified; I10 Essential (primary) hypertension; Z79.2 Long term (current) use of antibiotics; Z87.891 Personal history of nicotine dependence; Z20.822 Contact with and (suspected) exposure to COVID-19
CPT/HCPCS: 87426; 87804; 99213; G0463

== ENCOUNTER 2023-11-16 09:00 | Outpatient (RCR) | payer OTHER, SELFPAY ==
[2023-10-11 08:10] VITALS: BP_SYST 102
--- NOTE | 2023-10-11 08:58 | OPREHPOC ---
Outpatient Therapy Plan of Care This is a Multidisciplinary Plan of Care that may contain components documented by all disciplines (PT, OT, and ST.) PT Problem 1 PT Problem #1 Knowledge Deficit PT Goal 1 Goal Pt to be IND with issued HEP Target Visit 16 PT Problem 2 PT Problem #2 Pain PT Goal 1 Goal Pt to report L shoulder pain no greater than 3/10 in the last week Target Visit 16 PT Goal 2 Goal Pt to report 75% improvement in overall symptoms Target Visit 16 PT Problem 3 PT Problem #3 Impaired Range of Motion PT Goal 1 Goal Pt to improve L shoulder active flexion to 130 deg Target Visit 16 PT Goal 2 Goal Pt to improve L shoulder abduction abduction to 120 deg Target Visit 16 PT Problem 4 PT Problem #4 Impaired Strength PT Goal 1 Goal Pt to demonstrate L shoulder strength 80% of R shoulder strength, when protocol allows Target Visit 16 PT Goal 2 Goal Pt to be able to lift 5lb overhead without compensations Target Visit 16 PT Problem 5 PT Problem #5 Impaired Functional Mobil PT Goal 1 Goal Pt to improve UEFI score from 67/80 to 75/80 Target Visit 16 PT Goal 2 Goal Pt to be able to lift and carry 20lb from ground level without compensations. Target Visit 16
--- NOTE | 2023-10-11 08:58 | PTOPEVAL1 ---
Assessment and note entered by Charan Skinner, PT, DPT Evaluation Information Assessment Status Evaluation Diagnosis L RTC repair Onset 08/15/23 Subjective Information Pt underwent a L RTC repair on 08/15/23. So far he has been doing a few exercises at home. Pain has been pretty well controlled. He states his L shoulder is doing good, he states he fell and landed on his R shoulder last week and it is bothering him now. Reported Pain Level Pain Score 0: Self Report Assessment PT Clinical Summary Jay presents to therapy today for his initial evaluation following a L RTC repair on 08/15/23. Today he demonstrates decreased active and passive ROM when compared to his uninvolved side, decreased shoulder strength, and overall decreased functional mobility. Today he demonstrates active flexion to 100 and active abduction to 85 deg. Skilled therapy services are indicated to address the deficits noted above, to progress ROM and strength as protocol allows, to improve mobility, and to return to PLOF without limitations. Plan of Care Interventions Electrical Stimulation,Hot Pack/Cold Pack, Intermittent Compression,Manual Therapy,Neuro Re- education,Patient/Caregiver Educati,Therapeutic Activities,Therapeutic Exercise PT Services Indicated Yes Treatment Frequency and 2x/wk for 8 wks Duration These treatments will address the objective and functional deficits as defined above. The patient will be advanced safely and appropriately in order for the patient to progress towards his/her prior level of function. Additional exercises will be introduced and as well as a comprehensive home exercise program upon discharge, if needed, ?to ensure carryover of functional gains achieved in the clinic. This treatment plan has been reviewed and agreement upon by the patient.
--- NOTE | 2023-10-25 08:46 | PCPTNOTE ---
Patient was a No Show for today's therapy appointment.
--- NOTE | 2023-10-27 08:42 | PCPTNOTE ---
Patient did not show up for scheduled appointment this date.
--- NOTE | 2023-11-01 08:25 | PCPTNOTE ---
Patient was a No Show, No Call for today's appointment.
--- NOTE | 2023-11-03 08:25 | PCPTNOTE ---
Patient did not show up for scheduled appointment this date. Called and unable to leave voicemail.
--- NOTE | 2023-11-03 08:29 | PCPTNOTE ---
Pt called and states he has not been here for the last 4 visits d/t having the flu. He states he did not know he needed to call and cancel if he was sick. He has been rescheduled.
--- NOTE | 2023-11-09 08:09 | PCPTNOTE ---
Pt called 3 mins after start of appointment time to ask what time his appointment was. D/t pt living ~20 mins away, his appointment has been rescheduled.
[2023-11-16 09:02] VITALS: BP_SYST 150
--- NOTE | 2023-11-16 10:01 | PTOPDC ---
Assessment and note entered by Charan Skinner, PT, DPT Evaluation Information Assessment Status Discharge Diagnosis L RTC repair Onset 08/15/23 Subjective Information Pt states his L shoulder is doing fine. He states he is still working towards getting full ROM, but pain is very low and it feels like his strength is doing really well. He states he is going back to the doctor today. He states his R shoulder causes his more pain and discomfort than his L does. Reported Pain Level Pain Score 6,0: Self Report Assessment PT Clinical Summary Jay presents to therapy today for his progress report following 5 visits to treat his L RTC repair on 08/15/23. Today he demonstrates active shoulder flexion to 134 deg and active abduction to 136 deg which is near equal to his R shoulder active ROM. He demonstrates L shoulder strength grossly 4+/5. He has met or is progressing well towards all of his therapy goals and no longer requires skilled therapy services. He will be discharged at this time.
== END 2023-11-16 13:16 | disposition home or self-care (01) ==
LOC: ANHGOSHPT 09:00
DX: M25.512 Pain in left shoulder (principal)
CPT/HCPCS: 97110; 97161; 97750; 99199

== ENCOUNTER 2023-12-10 09:27 | Outpatient (CLI) | payer OTHER, SELFPAY ==
--- NOTE | ~2023-12-10 | MR_ITS ---
MRI of the right shoulder Technique: Axial proton-density fat-sat images, coronal proton density fat-sat and T2 fat-sat images, and sagittal T1-weighted and T2 fat-sat images were acquired. Clinical History: Pain Findings: There is mild AC joint degenerative change with small subacromial spur present. Coracoclavi cular, coracoacromial, and coracohumeral ligaments appear intact. There is a 6 mm probable focal full-thickness tear at the anterior, distal supraspinatus tendon inser tion. There is moderate background supraspinatus tendinosis. Infraspinatus tendon is intact, without partial or full-thickness tear. Subscapularis tendon is intact with mild to moderate tendinosis. Tend on of long head of the biceps is intact. No definite labral tear identified. Inferior glenohumeral ligament is intact. No effusion or degenerative change at the glenohumeral join t seen. There is fluid distention of the subacromial/subdeltoid bursa. No muscle atrophy or edema. Impression: 6 mm full-thickness tear at the anterior, distal supraspinatus tendon insertion with background moder ate supraspinatus tendinosis. Fluid distention of the subacromial/subdeltoid bursa could reflect bursitis versus fluid distention r elated to the focal full-thickness supraspinatus tear. Mild AC joint degenerative change. Reviewed, dictated and finalized at [facility]. Impression: 6 mm full-thickness tear at the anterior, distal supraspinatus tendon insertion with background moderate supraspinatus tendinosis. Fluid distention of the subacromial/subdeltoid bursa could reflect bursitis alexx yulisa fluid distention related to the focal full-thickness supraspinatus tear. Mild AC joint degenerative change.
== END 2023-12-10 09:28 | disposition home or self-care (01) ==
LOC: ANHIMG 09:28
DX: M25.511 Pain in right shoulder (principal); S46.811A Strain of other muscles, fascia and tendons at shoulder and upper arm level, right arm, initial encounter
CPT/HCPCS: 73221

== ENCOUNTER 2023-12-10 15:29 | Emergency (ER) | payer OTHER, SELFPAY ==
--- NOTE | ~2023-12-10 | US_ITS ---
EXAMINATION: US scrotum doppler DATE: 12/10/2023 18:05 INDICATION: Left testicular pain. TECHNIQUE: Grayscale and Doppler ultrasound images of the testes were obtained. COMPARISON: None. FINDINGS: The right testis measures 4.5 x 2.1 x 2.8 cm. The left testis measures 3.8 x 2.2 x 3.1 cm. There is normal vascular flow to both testes. The right epididymis is normal with normal vascular haylee w. The left epididymis is normal with normal vascular flow. There is no varicocele or hydrocele. IMPRESSION: 1. Normal testes. Reviewed, dictated and finalized at location A. IMPRESSION: 1. Normal testes.
[2023-12-10 15:32] VITALS: BP 148/104; PULSE 108; RESP 16; TEMP 36.7; O2SAT 99
--- NOTE | 2023-12-10 18:55 | ED.MALEGU ---
HPI - Male Genitourinary General Chief complaint: Urogenital-Male Stated complaint: hurt to urinate Time Seen by Provider: 12/10/23 18:31 History of Present Illness HPI Narrative: Patient states that today he noticed his left testicle seemed to be hurting and felt swollen to him, denies any recent injuries, he is monogamous with his of 14 years and denies any concerns for STDs. Denies penile discharge Related Data Home Medications Medication Instructions Recorded Confirmed empagliflozin 10 mg tablet 10 mg PO DAILY 05/05/23 10/30/23 amoxicillin 875 mg-potassium 1 tablet PO BID 10/30/23 10/30/23 clavulanate 125 mg tablet Allergies Allergy/AdvReac Type Severity Reaction Status Date / Time No Known Allergies Allergy Verified 10/30/23 15:25 Review of Systems Review of Systems: CONST: No fever. HEENT: No sore throat C/V: No chest pain RESP: No cough GI: no abdominal pain, nausea, vomiting : left testicular pain M/S: No joint pain. SKIN: No rash. NEURO: [No headache or focal numbness or weakness] PSYCH: [No depression] [facility] Past Medical History Medical History COPD (chronic obstructive pulmonary disease) Hypertension Hypertension Left rotator cuff tear Surgical History Surgical History History of orthopedic surgery Left ACL History of tonsillectomy Family History Family History Father Diabetes mellitus Hypertension Mother Chronic obstructive pulmonary disease Hypertension Social History Social History Smoking packs per day: 1 Smoking cigarettes per day: 20.0 Years smoked: 22 Smoking pack-years: 22.00 Smoking status: Former smoker Tobacco type: cigarettes Smoking end date: 07/13/22 Alcohol intake: current Alcohol use details: occasionally Substance use: never Substance use type: does not use Lack of Transportation: No Lack of Food: Never True Current Housing: I Have Housing Concerned About Future Housing: No Difficulty Paying Gas/Electric Bills: No Difficulty Paying for Meds: No Currently Unemployed: No Education: Trade/Vocational Certificate Difficulty w/ Childcare or Family Care: No Living arrangements: with family Occupation/Education: occupation 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 EYES: EOMI, conjunctiva normal ENT: Hearing grossly intact LUNGS: Nonlabored breathing. HEART: [Regular rate and rhythm] ABD: [Soft], [nontender to palpation] : No swelling to either scrotum; +cremasteric reflex. No discharge from penis. No significant tenderness to palpation. EXT: Normal range of motion SKIN: [No rashes or lesions.] NEURO: [Alert and oriented x 3. No gross focal sensory or strength deficits.] PSYCH: Normal affect Course Vital Signs Vital signs: Vital Signs Temperature 98.1 F 12/10/23 15:32 Pulse Rate 108 H 12/10/23 15:32 Respiratory Rate 16 12/10/23 15:32 Blood Pressure 148/104 H 12/10/23 15:32 Pulse Oximetry 99 12/10/23 15:32 Temperature 98.1 F 12/10/23 15:32 Pulse Rate 108 H 12/10/23 15:32 Respiratory Rate 16 12/10/23 15:32 Blood Pressure 148/104 H 12/10/23 15:32 Pulse Oximetry 99 12/10/23 15:32 MDM - Male Genitourinary MDM Narrative Medical decision making narrative: 43-year-old male presenting here with left scrotal pain that started today, ultrasound thankfully is normal, however patient tells me that he has actually had similar symptoms a few weeks ago and had already been treated for a UTI as had his ,
[2023-12-10 18:57] LABS: Appearance Urine Clear (Clear); Bacteria Urine None Seen /hpf; Bilirubin Urine Negative (Negative); Blood Urine Negative (Negative); Color Urine Yellow (Yellow); Glucose Urine UA 3+ mg/dL (Negative); Ketones Urine Negative (Negative); Leukocyte Esterase Ur Trace LEU/UL (Negative); Nitrate Urine Negative (Negative); Non Pathogenic Casts 0-2; Protein Urine Trace mg/dL (Negative); RBC Urine 0-2 /hpf (0-2); Specific Grav Ur 1.011 (1.001-1.035); Squamous Epithelial Cell Urine None Seen /hpf (Few); Urobilinogen Urine 0.2 mg/dL (<2.0); pH Urine 5.5 (5.0-9.0)
[2023-12-10 18:58] LABS: Add Urine Microscopic? YES
[2023-12-10 19:00] VITALS: BP 140/90; PULSE 90; RESP 18; TEMP 36.7; O2SAT 99
[2023-12-10] MEDS: LIDOCAINE HCL 1% LOCAL INJ 10 ML VIAL (19:31)
[2023-12-10] MEDS: levoFLOXacin 500 MG TABLET PO (19:31)
[2023-12-10] MEDS: DOXYCYCLINE HYCLATE 100 MG TABLET PO (19:32)
[2023-12-10] MEDS: cefTRIAXone 1 GM VIAL 0.5 GM IM (19:32)
[2023-12-10 20:01] LABS: Trichomonas Vag PCR NOT DETECTED (NOT DETECTE)
[2023-12-10 20:24] LABS: Chlamydia trachomatis NOT DETECTED (NOT DETECTE); Neisseria gonorrhoeae PCR NOT DETECTED (NOT DETECTE)
== END 2023-12-10 19:30 | disposition home or self-care (01) ==
LOC: ANHED 19:02
PROVIDERS: Physician Assistant; Emergency Provider Emergency Medicine; Referring Provider Emergency Medicine
DX: N50.812 Left testicular pain (principal); N39.0 Urinary tract infection, site not specified; B96.20 Unspecified Escherichia coli [E. coli] as the cause of diseases classified elsewhere; Z87.891 Personal history of nicotine dependence; J44.9 Chronic obstructive pulmonary disease, unspecified; I10 Essential (primary) hypertension
CPT/HCPCS: 73221; 76870; 81001; 87077; 87086; 87088; 87186; 87491; 87591; 87661; 93976; 96372; 99283; A9270; J0696

== ENCOUNTER 2024-04-25 14:45 | Outpatient (RCR) | payer OTHER, SELFPAY ==
--- NOTE | 2024-02-09 15:43 | OPREHPOC ---
Outpatient Therapy Plan of Care This is a Multidisciplinary Plan of Care that may contain components documented by all disciplines (PT, OT, and ST.) PT Problem 1 PT Problem #1 Knowledge Deficit PT Goal 1 Goal [place] with HEP Target Visit 4 PT Problem 2 PT Problem #2 Impaired Range of Motion PT Goal 1 Goal Achieve 170 degrees of R shoulder flexion ROM for [id number] functional reach Target Visit 10 PT Goal 2 Goal Achieve 80 degrees of R shoulder External rotation for improved self care and mobility Target Visit 10 PT Problem 3 PT Problem #3 Impaired Strength PT Goal 1 Goal Improve R shoulder flexion strength to 4/5 as allowed per protocol for improved lifting ability PT Goal 2 Goal Improve R shoulder external rotation strength to 4 +/5 to improve stability fo shoulder for self care activity Target Visit 10
--- NOTE | 2024-02-09 15:43 | PTOPEVAL1 ---
Assessment and note entered by Patrice Stoner, PT Evaluation Information Assessment Status Evaluation Diagnosis R shoulder arthroscopy, R shoulder pain Onset 12/19/23 Subjective Information Reports that overall he feels that the surgery has helped. He is seeing trouble with shoulder motion grossly especially into flexion. Currently he has been doing some stretching including walking arm up the wall as tolerated. He was instructed by MD to work on ROM and can do light strengthening to biceps but not away from body. Really wants to resotre motion to get his right shoulder feeling as good as his left. Reported Pain Level Pain Score 6: Self Report Assessment PT Clinical Summary Patient presents with loss of functional shoulder ROM, weakness, and decreased ADL performance. Will benefit form skilled therapy to address functional ROM and functional strength as allowed per protocol. N concerns at this time with progression forward. Plan of Care Interventions Electrical Stimulation,Hot Pack/Cold Pack,Manual Therapy,Neuro Re-education,Therapeutic Activities, Therapeutic Exercise PT Services Indicated Yes Treatment Frequency and 2x/week for 10 visits Duration These treatments will address the objective and functional deficits as defined above. The patient will be advanced safely and appropriately in order for the patient to progress towards his/her prior level of function. Additional exercises will be introduced and as well as a comprehensive home exercise program upon discharge, if needed, ?to ensure carryover of functional gains achieved in the clinic. This treatment plan has been reviewed and agreement upon by the patient.
--- NOTE | 2024-03-19 14:51 | PCPTNOTE ---
Patient was a No Show/No Call for today's progress note
[2024-04-04 10:05] VITALS: BP_SYST 120
--- NOTE | 2024-04-04 10:55 | OPREHPOC ---
Outpatient Therapy Plan of Care This is a Multidisciplinary Plan of Care that may contain components documented by all disciplines (PT, OT, and ST.) PT Problem 1 PT Problem #1 Knowledge Deficit PT Goal 1 Goal [place] with HEP Target Visit 4 Progress Met Comment 04-04-24 progress goal met continue towards goal to progress education/ HEP PT Goal 2 Target Visit 15 PT Problem 2 PT Problem #2 Impaired Range of Motion PT Goal 1 Goal Achieve 170 degrees of R shoulder flexion ROM for [id number] functional reach Target Visit 10 Progress Not Met Comment 04-04-24 progress goal not met, improved to 150' active assisted continue towards goal for active ROM PT Goal 2 Goal Achieve 80 degrees of R shoulder External rotation for improved self care and mobility Target Visit 10 Progress Not Met Comment 04-04-24 progress goal not met, improved to 55' continue towards goal TARGET 15 visits PT Problem 3 PT Problem #3 Impaired Strength PT Goal 1 Goal Improve R shoulder flexion strength to 4/5 as allowed per protocol for improved lifting ability Progress Not Met Comment 04-04-24 progress goal not met PT Goal 2 Goal Improve R shoulder external rotation strength to 4 +/5 to improve stability fo shoulder for self care activity 04-04-24 progress goal not met; Target Visit 10 Progress Not Met Comment 04-04-24 progress NEW GOALS: R shoulder active in standing x 10 reps: 1* flexion to 120' with 3# hand weight 2* abdu
--- NOTE | 2024-04-04 10:55 | PTOPPROG ---
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 Compared to the initial evaluation: pain rating from 1-6/10 to 0-7/10; self assessment functional score with Quick DASH from 43% to 9% limitation in activity level; increase strength and ROM of R shoulder; education for posture/position and HEP. 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 R shoulder ROM: active/passive: flexion 115'/ 150' abduction 115'/ 120'; IR- reach behind back, palm to waist; ER- reach to back of head, palm to back of head. The goals were partially met. Continue PT to further increase strength of R shoulder, for return to full work duties and home activities. Plan of Care Interventions Electrical Stimulation,Hot Pack/Cold Pack,Manual Therapy,Patient Education,Therapeutic Activities,Therapeutic Exercise,Ultrasound,Other Other Interventions IASTM, taping PT Services Indicated Yes Treatment Frequency and 1x/wk for 6 more visits Duration These treatments will address the objective and functional deficits as defined above. The patient will be advanced safely and appropriately in order for the patient to progress towards his/her prior level of function. Additional exercises will be introduced and as well as a comprehensive home exercise program upon discharge, if needed, ?to ensure carryover of functional gains achieved in the clinic. This treatment plan has been reviewed and agreement upon by the patient.
--- NOTE | 2024-04-30 13:26 | PCPTNOTE ---
This treatment is being continued on visit number [id number]. Please see documentation on both accounts to view progress. Completed interventions, outcomes, and problems have been marked as Inactive to facilitate the copying of the Care plan routine for recurring accounts.
== END 2024-04-30 10:09 | disposition home or self-care (01) ==
LOC: ANHPT 14:45
DX: S46.011D Strain of muscle(s) and tendon(s) of the rotator cuff of right shoulder, subsequent encounter (principal)
CPT/HCPCS: 97014; 97110; 97140; 97161; 97530; G0283

== ENCOUNTER 2024-05-16 08:00 | Outpatient (RCR) | payer OTHER, SELFPAY ==
[2024-04-30 10:09] VITALS: BP_SYST 120
--- NOTE | 2024-04-30 13:27 | PCPTNOTE ---
This treatment is being continued from visit number [id number]. Please see documentation on both accounts to view progress. Completed interventions, outcomes, and problems have been marked as Inactive to facilitate the copying of the Care plan routine for recurring accounts.
--- NOTE | 2024-05-07 16:02 | PCPTNOTE ---
Called and cancelled. CALEBS
--- NOTE | 2024-06-14 10:08 | PTOPDC ---
Assessment and note entered by Joan King, PT Discharge Report Assessment Status Discharge - Pt Not Present Diagnosis R shoulder arthroscopy, R shoulder pain Onset 12/19/23 Subjective Information talked with pt on phone--he did not show for today's appt. He stated he was doing better and did not need any more therapy. Assessment PT Clinical Summary Jay has received a total of 12 PT sessions, from February 08 to May 16. He had 2 call/cancel and 2 no- show appointments. He did not show for today's reevaluation appt. He reports he has returned to work and is doing his home exercises. On the phone, stated he did not need any more therapy. Discharge PT. The goals were not addressed. Plan of Care PT Services Indicated No
== END 2024-06-14 15:11 | disposition home or self-care (01) ==
LOC: ANHPT 08:00
DX: S46.011D Strain of muscle(s) and tendon(s) of the rotator cuff of right shoulder, subsequent encounter (principal)
CPT/HCPCS: 97110; 97140; 97530

== ENCOUNTER 2024-08-06 08:28 | Emergency (ER) | payer OTHER, SELFPAY ==
--- NOTE | ~2024-08-06 | XR_ITS ---
XR chest 2V Ordering provider: Mayela Ortiz APRN History: 44 years Male with . cough x2 days, former smoker . Comparison: None. FINDINGS: MEDIASTINUM: The cardiac silhouette is not enlarged. LUNGS: No effusions or pneumothorax. Prominent bronchovascular markings are seen in the lower lobe ar eas in the lateral view which may indicate early pneumonia. Follow-up advised. OTHER: No free air under the diaphragm. Degenerative changes of the spine. IMPRESSION: Prominent bronchovascular markings with possible infiltrate seen in the lateral view in the lower lob es area. Clinical correlation and Follow-up advised. Reviewed, dictated and finalized at location [facility]. [facility] [employer] IMPRESSION: Prominent bronchovascular markings with possible infiltrate seen in the lateral view in the lower lobes area. Clinical correlation and Follow-up advised.
--- NOTE | 2024-08-06 08:34 | ED.URI ---
HPI - URI/Sore Throat General Chief Complaint: Upper Respiratory Infection Stated Complaint: Cough,chest hurts when coughing Time Seen by Provider: 08/06/24 08:35 Source: patient, RN notes reviewed and old records reviewed Mode of arrival: ambulatory Limitations: no limitations History of Present Illness HPI Narrative: 44-year-old male presents to the [facility] with complaints of cough. Reports chest discomfort only when coughing. Patient is a previous cigarette smoker Denies any other symptoms other than the cough Onset (ago): day(s) (2) Related Data Home Medications Medication Instructions Recorded Confirmed empagliflozin 10 mg tablet 10 mg PO DAILY 05/05/23 10/30/23 amoxicillin 875 mg-potassium 1 tablet PO BID 10/30/23 10/30/23 clavulanate 125 mg tablet Allergies Allergy/AdvReac Type Severity Reaction Status Date / Time No Known Allergies Allergy Verified 10/30/23 15:25 Review of Systems Review of Systems: All systems reviewed & are unremarkable except as noted in HPI and below Constitutional: Constitutional: Reports no additional constitutional complaints ENT: Reports system reviewed and no additional complaints, except as documented Cardiovascular: Cardiovascular: Reports no additional cardiovascular complaints, Denies chest pain and Denies dyspnea Respiratory: Respiratory: Reports as per HPI, Denies chest congestion, Reports cough and Denies dyspnea Gastrointestinal: Gastrointestinal: Reports no additional gastrointestinal complaints, Denies abdominal pain, Denies nausea and Denies vomiting Musculoskeletal: Musculoskeletal: Reports no additional musculoskeletal complaints Integumentary/Breasts: Skin/Breast: Reports system reviewed and no additional complaints, except as docu PMFSH Past Medical History Medical History COPD (chronic obstructive pulmonary disease) Hypertension Hypertension Left rotator cuff tear Surgical History Surgical History History of orthopedic surgery Left ACL History of tonsillectomy Family History Family History Father Diabetes mellitus Hypertension Mother Chronic obstructive pulmonary disease Hypertension Social History Social History Smoking packs per day: 1 Smoking cigarettes per day: 20.0 Years smoked: 22 Smoking pack-years: 22.00 Smoking status: Former smoker Tobacco type: cigarettes Smoking end date: 07/13/22 Alcohol intake: current Alcohol use details: occasionally Substance use: never Substance use type: does not use Lack of Transportation: No Lack of Food: Never True Current Housing: I Have Housing Concerned About Future Housing: No Difficulty Paying Gas/Electric Bills: No Difficulty Paying for Meds: No Currently Unemployed: No Education: Trade/Vocational Certificate Difficulty w/ Childcare or Family Care: No Living arrangements: with family Occupation/Education: occupation 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 There is no relevant family history pertinent to the patient complaint. Exam Const: General: cooperative, healthy appearing, comfortable, no acute distress, well developed, alert and well nourished Nutritional Appearance: well nourished Orientation/consciousness: patient oriented x3 Limitations: no limitations HENMT: Head: normal to inspection Ears: hearing grossly normal bilaterally and external ears normal Face/Nose/Sinus: Normal external nose present, normal facial exam and face symmetric Face and sinus: normal facial exam and face symmetric Eyes: General: appearance normal, both eyes and all related structures Alignment and Position: alignment normal Periorbital: periorbital findings normal Neck: Neck: normal visual inspection, full ROM, no lymphadenopathy and no meningeal signs Chest: Chest palpation & inspection: normal inspection of the chest Resp: Effort & Inspection: normal respiratory effort and able to speak in complete sentences Auscultation: no crackles, no rales, no rhonchi and wheezes expiratory wheezes and throughout Cardio: Rate: regular rate Skin: General skin exam: normal color and no rashes or lesions noted Lesions: no lesions Rashes: no rashes Wounds: no wounds Neuro: General: patient oriented x3, gait normal, tone normal, moves all extremities and no meningeal signs Cognition (Neuro): normal cognition Speech: normal speech Gait exam (Neuro): Normal gait present Extrem: General: normal to inspection, full ROM, capillary refill normal and normal gait Psych: Appearance: grossly normal and well kempt Mental Status: mental status grossly normal Speech and movement: Normal speech and movement present and Clear speech present Affect: normal affect Attitude: cooperative Course Course Level of Care: Express Care Visit Vital Signs Vital signs: Vital Signs Temperature 97.8 F 08/06/24 08:37 Pulse Rate 87 08/06/24 08:37 Respiratory Rate 16 08/06/24 08:37 Blood Pressure 128/80 08/06/24 08:37 Pulse Oximetry 100 08/06/24 08:37 Oxygen Delivery Room Air 08/06/24 08:37 Temperature 97.8 F 08/06/24 08:37 Pulse Rate 87 08/06/24 08:37 Respiratory Rate 16 08/06/24 08:37 Blood Pressure 128/80 08/06/24 08:37 Pulse Oximetry 100 08/06/24 08:37 Oxygen Delivery Room Air 08/06/24 08:37 Reviewed MDM - URI/Sore Throat MDM Narrative Medical decision making narrative: Patient sitting comfortably in exam room. Nontoxic, vitals stable. Patient in no acute distress Patient presents with cough x2 days X-ray shows bronchitis, possible forming pneumonia. Will treat for both Patient appropriate for outpatient treatment and follow-up Discharge instructions reviewed with patient, as well as provided in writing per nursing staff. The instructions also include specific and strict return/GO TO THE ER as well as f/u information. All questions have been answered, and the patient deny any further questions with discharge and discharge plan. Some parts of this dictation were generated by voice recognition software and may contain typographical and/or grammatical inaccuracies. Differential Diagnosis Differential diagnosis: Likely upper respiratory infection, otitis media, viral infection and bronchitis Imaging Data Radiologist's impression: XR chest 2V Ordering provider: Mayela Ortiz APRN History: 44 years Male with . cough x2 days, former smoker . Comparison: None. FINDINGS: MEDIASTINUM: The cardiac silhouette is not enlarged. LUNGS: No effusions or pneumothorax. Prominent bronchovascular markings are seen in the lower lobe areas in the lateral view which may indicate early pneumonia. Follow-up advised. OTHER: No free air under the diaphragm. Degenerative changes of the spine. IMPRESSION: Prominent bronchovascular markings with possible infiltrate seen in the lateral view in the lower lobes area. Clinical correlation and Follow-up advised. Critical Care Time Critical Care Time Critical Care Time: No Discharge Plan Discharge Clinical Impression: Bronchitis Patient Disposition: Home, Self-Care Condition: Stable Instructions: Antibiotic Form, Acute Bronchitis (ED), Pneumonia (ED) Additional Instructions: Today your x-ray did show some inflammation, concern for a developing pneumonia. You have been treated with an antibiotic, steroid and inhaler. Radiologist did recommend she follow-up in 2-3 weeks to have a repeat x-ray with your primary care provider It is very important to treat your symptoms. Plenty of water, Gatorade, Pedialyte, ice pops or Jell-O. -Alternate Tylenol and Motrin per package directions for fever or pain. You can alternate every 4 hours -Antihistamine medication such as Benadryl at night and Zyrtec/Claritin/Evangelina during the day can help improve symptoms. -doing daily nasal irrigations can help relieve pressure your sinuses. Things like a Neti pot -Use Flonase twice a day for 5 days then daily to help reduce the inflammation and dry up your sinuses. -You can also use Mucinex. Be sure to drink plenty of water with this medication at least 8 ounces with every dose and it is important to drink 8 to 10 glasses of water per day. Water is a natural decongestant -Eat and drink things that are easy to swallow, like tea or soup, or popsicles. -Oral rinses such as: Salt water gargles and/or may use topical anesthetic (eg. Chloraseptic spray) or lozenges to relieve dryness or throat pain). -Frequent hand washing or hand area attendant is one of the best ways to prevent spread of infection. -Using a vaporizer or humidifier at night will also help thin secretions and help with coughing up phlegm. -Follow up with primary care provider in 7-10 days if condition is not improving - For new or worsening symptoms go directly to the nearest ER Patient Language: Thai Prescriptions: New doxycycline monohydrate 100 mg tablet 100 mg PO BID Qty: 14 0RF albuterol sulfate 90 mcg/actuation HFA aerosol inhaler 2 puff inhalation QID PRN (Reason: shortness of breath or wheezing) Qty: 6.7 0RF (DME) Aerochamber MV Spacer See Rx Instructions .Route Qty: 1 0RF Rx Instructions: As directed prednisone 20 mg tablet See Rx Instructions .Route .COMPLEX Qty: 9 0RF Rx Instructions: Take 40 mg daily for 3 days, 20 mg daily for 3 days No Action amoxicillin-pot clavulanate 875-125 mg tablet 1 tablet PO BID pseudoephedrine HCl [12 Hour Decongestant] 120 mg tablet extended release 120 mg PO Q12H PRN (Reason: nasal congestion) Qty: 12 0RF dextromethorphan-guaifenesin [Mucinex DM] 60-1,200 mg tablet extended release 12 hr 1 tablet PO Q12H Qty: 12 0RF albuterol sulfate 90 mcg/actuation HFA aerosol inhaler 2 puff INHALATION QID PRN (Reason: shortness of breath or wheezing) Qty: 8.5 0RF empagliflozin 10 mg tablet 10 mg PO DAILY losartan [Cozaar] 50 mg Tablet 50 mg PO DAILY 30 Days Qty: 30 0RF aspirin [Children's Aspirin] 81 mg Tablet,Chewable 81 mg PO DAILY@0800 30 Days Qty: 30 0RF furosemide 40 mg tablet 40 mg PO DAILY Qty: 30 0RF ibuprofen 600 mg tablet 600 mg PO TID PRN (Reason: fever or pain) Qty: 30 0RF levofloxacin 500 mg tablet 500 mg PO DAILY Qty: 10 0RF doxycycline hyclate 100 mg capsule 100 mg PO Q12H 7 Days Qty: 14 0RF Follow-up/Referrals: [facility] [Primary Care Provider] - 2 Weeks ( [facility] follow-up) Stand Alone Forms: Work/School Release IP Time of Disposition: 08:58
[2024-08-06 08:37] VITALS: BP 128/80; PULSE 87; RESP 16; TEMP 36.6; O2SAT 100
[2024-08-06 08:45] VITALS: PULSE 87; RESP 16; O2SAT 100
== END 2024-08-06 09:20 | disposition home or self-care (01) ==
PROVIDERS: Emergency Provider Nurse Practitioner
DX: J40 Bronchitis, not specified as acute or chronic (principal); Z87.891 Personal history of nicotine dependence; J44.9 Chronic obstructive pulmonary disease, unspecified; I10 Essential (primary) hypertension
CPT/HCPCS: 71046; 99213; G0463

== ENCOUNTER 2024-11-01 09:39 | Emergency (ER) | payer OTHER, SELFPAY ==
--- NOTE | ~2024-11-01 | XR_ITS ---
Clinical Indication: Fever, cough PA and lateral views of the chest: Comparison: 08/06/2024 Findings: The lungs are clear, without evidence of focal consolidation or pleural effusion. Cardiome diastinal silhouette is within normal limits. Bones and soft tissues are unremarkable. Impression: Normal chest. Reviewed, dictated and finalized at [facility]. OVEMENT ADVISOR Impression: Normal chest.
[2024-11-01 09:45] VITALS: BP 164/92; PULSE 97; RESP 20; TEMP 36.8; O2SAT 97
--- OUTSIDE RECORDS SUMMARY | 2024-11-01 09:47 | XMS_ITS | Clinical Summary ---
Author Organization [facility] [employer] [facility] Address [address] [place] [address] Care Team Providers Care Soft Top Installer Name Role Phone Unavailable Primary Care Provider Unavailabl e Encounters Date Type Department Care Team Description 10/16/2024 External Device Data [facility] Provider, Abstract 10/03/2024 External Device Data [facility] Provider, Abstract 10/03/2024 External Device Data [facility] Provider, Abstract from Last 3 Months Social History Tobacco Use Types Packs/Day Years Used Date Smoking Tobacco: Never Assessed Sex and Gender Information Value Date Recorded Sex Assigned at Not on file Legal Sex Male 1:35 PM CDT Gender Identity Not on file Sexual Orientation Not on file Plan of Treatment Health Maintenance Due Date Last Done Comments Pre-Diabetes and Diabetes Screening 1981 HEPATITIS B VACCINES (1 of 3 - 19+ 3-dose series) 02/13/2000 03/01/2007, 01/27/2005, 09/26/2003 PNEUMOCOCCAL VACCINE 0-64 YEARS (2 of 2 - PCV) 08/29/2016 08/29/2015 INFLUENZA VACCINE (#1) 2024 8, 06/19/2014, 06/18/2014, Additional history exists DTAP/TDAP/TD VACCINES (3 - Td or Tdap) 02/17/2031 02/17/2021, 12/29/2011 HPV VACCINES Aged Out No longer eligi ble based on patient's age to complete this topic Insurance [employer]
--- OUTSIDE RECORDS SUMMARY | 2024-11-01 09:47 | XMS_ITS | Continuity of Care Document ---
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 11.8 - 15.1 06/08 Specimen Type: BLOOD No comment entered. Ordering Provider: DASIA DOMÍNGUEZ Report Released Date/Time: Jun 08, 2024 09:04 AM Reporting Lab: [facility] [address] [facility] [address] Performing Lab: [facility] [address] [facility] [address] [place] [address] CBC LYMPHOCYTES/ 100 LEUKOCYTES IN BLOOD BY AUTOMATED COUNT 20 06/08 Specimen Type: BLOOD No comment entered. Ordering Provider: DASIA DOMÍNGUEZ Report Released Date/Time: Jun 08, 2024 09:04 AM Reporting Lab: [facility] [address] [facility] [address] Performing Lab: [facility] [address] [facility] [address] [facility] CBC MONOCYTES/10 0 LEUKOCYTES IN BLOOD BY AUTOMATED COUNT 10 06/08 Specimen Type: BLOOD No comment entered. Ordering Provider: DASIA DOMÍNGUEZ Report Released Date/Time: Jun 08, 2024 09:04 AM Reporting Lab: [facility] [address] [facility] [address] Performing Lab: [facility] [address] [facility] [address] [facility] CBC NEUTROPHILS/ 100 LEUKOCYTES IN BLOOD BY AUTOMATED COUNT 65 06/08 Specimen Type: BLOOD No comment entered. Ordering Provider: DASIA DOMÍNGUEZ Report Released Date/Time: Jun 08, 2024 09:04 AM Reporting Lab: [facility] [address] [place] [address] Performing Lab: [facility] [address] [facility] [address] [facility] CBC EOSINOPHILS/ 100 LEUKOCYTES IN BLOOD BY AUTOMATED COUNT 4 06/08 Specimen Type: BLOOD No comment entered. Ordering Provider: DASIA DOMÍNGUEZ Report Released Date/Time: Jun 08, 2024 09:04 AM Reporting Lab: [place] [address] [facility] [address] Performing Lab: [address] [address] [facility] CBC BASOPHILS/10 0 LEUKOCYTES IN BLOOD BY AUTOMATED COUNT 1 06/08 Specimen Type: BLOOD No comment entered. Ordering Provider: DASIA DOMÍNGUEZ Report Released Date/Time: Jun 08, 2024 09:04 AM Reporting Lab: [place] [address] [facility] [address] Performing Lab: [address] [address] [facility] CBC LYMPHOCYTES [#/VOLUME] IN BLOOD BY AUTOMATED COUNT 1.02 10*3/u L 0.77 - 4.50 06/08 Specimen Type: BLOOD No comment entered. Ordering Provider: DASIA DOMÍNGUEZ Report Released Date/Time: Jun 08, 2024 09:04 AM Reporting Lab: [facility] [address] [place] [address] Performing Lab: [address] [address] [facility] CBC MONOCYTES [#/VOLUME] IN BLOOD BY AUTOMATED COUNT 0.52 10*3/u L 0.19 - 0.80 06/08 Specimen Type: BLOOD No comment entered. Ordering Provider: DASIA DOMÍNGUEZ Report Released Date/Time: Jun 08, 2024 09:04 AM Reporting Lab: [facility] [address] [place] [phone] Performing Lab: [facility] [address] [place] [address] [phone] [place] [address] CBC NEUTROPHILS [#/VOLUME] IN BLOOD BY AUTOMATED COUNT 3.39 10*3/u L 2.10 - 8.00 06/08 Specimen Type: BLOOD No comment entered. Ordering Provider: DASIA DOMÍNGUEZ Report Released Date/Time: Jun 08, 2024 09:04 AM Reporting Lab: [address] [address] Performing Lab: [address] [phone] [place] [address] CBC EOSINOPHILS [#/VOLUME] IN BLOOD BY AUTOMATED COUNT 0.22 10*3/u L 0.00 - 0.60 06/08 Specimen Type: BLOOD No comment entered. Ordering Provider: DASIA DOMÍNGUEZ Report Released Date/Time: Jun 08, 2024 09:04 AM Reporting Lab: [facility] [address] Performing Lab: [place] [address] [facility] [phone] [place] [address] CBC BASOPHILS [#/VOLUME] IN BLOOD BY AUTOMATED COUNT 0.03 10*3/u L 0.00 - 0.20 06/08 Specimen Type: BLOOD No comment entered. Ordering Provider: DASIA DOMÍNGUEZ Report Released Date/Time: Jun 08, 2024 09:04 AM Reporting Lab: [address] [address] Performing Lab: [address] [address] [facility] MICRAL/C REAT PROFILE (STL) ALBUMIN [MASS/VOLUME ] IN URINE 50.5 mg/L 07/21 Specimen Type: URINE Comment: uALB/CREAT Ratio Unable to be calculated Ordering Provider: ANIL BALDERAS Report Released Date/Time: Jul 21, 2023 09:25 AM Reporting Lab: [facility] [address] [facility] [address] Performing Lab: [facility] [address] [facility] [address] [facility] MICRAL/C REAT PROFILE (STL) ALBUMIN/CREA TININE [MASS RATIO] IN URINE 197 mg/g 0 - 29 07/21 H Specimen Type: URINE Comment: uALB/CREAT Ratio Unable to be calculated Ordering Provider: ANIL BALDERAS Report Released Date/Time: Jul 21, 2023 09:25 AM Reporting Lab: [place] [address] [facility] [address] Performing Lab: [facility] [address] [facility] [address] [facility] MICRAL/C REAT PROFILE (STL) CREATININE [MASS/VOLUME ] IN URINE 25.6 mg/dL 63 - 166 07/21 L Specimen Type: URINE Comment: uALB/CREAT Ratio Unable to be calculated Ordering Provider: ANIL BALDERAS Report Released Date/Time: Jul 21, 2023 09:25 AM Reporting Lab: [place] [address] [facility] [address] Performing Lab: [place] [address] [facility] [address] [facility] RENAL PANEL CREATININE [MASS/VOLUME ] IN SERUM OR PLASMA 1.78 mg/dL 0.7 - 1.3 07/21 H Specimen Type: PLASMA Comment: No hemolysis noted. Ordering Provider: ANIL BALDERAS Report Released Date/Time: Jul 21, 2023 09:25 AM Reporting Lab: [place] [address] [facility] [address] Performing Lab: [place] [address] [facility] [address] [facility] RENAL PANEL UREA NITROGEN [MASS/VOLUME ] IN SERUM OR PLASMA 17.1 mg/dL 9.0 - 25.0 07/21 Specimen Type: PLASMA Comment: No hemolysis noted. Ordering Provider: ANIL BALDERAS Report Released Date/Time: Jul 21, 2023 09:25 AM Reporting Lab: [facility] [address] [facility] [address] Performing Lab: [facility] [address] [facility] [address] [facility] RENAL PANEL GLUCOSE [MASS/VOLUME ] IN SERUM OR PLASMA 80 mg/dL 72 - 99 07/21 Specimen Type: PLASMA Comment: No hemolysis noted. Ordering Provider: ANIL BALDERAS Report Released Date/Time: Jul 21, 2023 09:25 AM Reporting Lab: [place] [address] [facility] [address] Performing Lab: [facility] [address] [facility] [address] [facility] RENAL PANEL SODIUM [MOLES/VOLUM E] IN SERUM OR PLASMA 139 meq/L 136 - 145 07/21 Specimen Type: PLASMA Comment: No hemolysis noted. Ordering Provider: ANIL BALDERAS Report Released Date/Time: Jul 21, 2023 09:25 AM Reporting Lab: [place] [address] [facility] [address] Performing Lab: [facility] [address] [facility] [address] [facility] RENAL PANEL POTASSIUM [MOLES/VOLUM E] IN SERUM OR PLASMA 4.0 meq/L 3.5 - 5 07/21 Specimen Type: PLASMA Comment: No hemolysis noted. Ordering Provider: ANIL BALDERAS Report Released Date/Time: Jul 21, 2023 09:25 AM Reporting Lab: [place] [address] [facility] [address] Performing Lab: [facility] [address] [place] [phone] [facility] RENAL PANEL CHLORIDE [MOLES/VOLUM E] IN SERUM OR PLASMA 102 meq/L 98 - 107 07/21 Specimen Type: PLASMA Comment: No hemolysis noted. Ordering Provider: ANIL BALDERAS Report Released Date/Time: Jul 21, 2023 09:25 AM Reporting Lab: [place] [address] [address] [facility] [address] Performing Lab: [place] [address] [facility] [address] [facility] RENAL PANEL CARBON DIOXIDE, TOTAL [MOLES/VOLUM E] IN SERUM OR PLASMA 31 meq/L 22 - 31 07/21 Specimen Type: PLASMA Comment: No hemolysis noted. Ordering Provider: ANIL BALDERAS Report Released Date/Time: Jul 21, 2023 09:25 AM Reporting Lab: [place] [address] [facility] [address] Performing Lab: [place] [address] [address] [facility] [address] [facility] RENAL PANEL CALCIUM [MASS/VOLUME ] IN SERUM OR PLASMA 9.9 mg/dL 8.4 - 10.4 07/21 Specimen Type: PLASMA Comment: No hemolysis noted. Ordering Provider: ANIL BALDERAS Report Released Date/Time: Jul 21, 2023 09:25 AM Reporting Lab: [place] [address] [facility] [address] Performing Lab: [place] [address] [address] [facility] [address] [facility] RENAL PANEL PHOSPHATE [MASS/VOLUME ] IN SERUM OR PLASMA 1.8 mg/dL 2.3 - 4.7 07/21 L Specimen Type: PLASMA Comment: No hemolysis noted. Ordering Provider: ANIL BALDERAS Report Released Date/Time: Jul 21, 2023 09:25 AM Reporting Lab: [place] [address] [facility] [address] Performing Lab: [place] [address] [facility] [address] [facility] RENAL PANEL ALBUMIN [MASS/VOLUME ] IN SERUM OR PLASMA 5.1 g/dL 3.4 - 5 07/21 H Specimen Type: PLASMA Comment: No hemolysis noted. Ordering Provider: ANIL BALDERAS Report Released Date/Time: Jul 21, 2023 09:25 AM Reporting Lab: [place] [address] [place] [phone] Performing Lab: [place] [address] [place] [phone] [facility] RENAL PANEL GLOMERULAR FILTRATION RATE/1.73 SQ M.PREDICTED [VOLUME RATE/AREA] IN SERUM, PLASMA OR BLOOD BY CREATININE-B ASED FORMULA (CKD-EPI 2020) 48.2 60 07/21 Specimen Type: PLASMA Comment: No hemolysis noted. Ordering Provider: ANIL BALDERAS Report Released Date/Time: Jul 21, 2023 09:25 AM Reporting Lab: [place] [address] [facility] [address] Performing Lab: [place] [address] [facility] [phone] [place] [address] PROTEIN URINE PROTEIN [MASS/VOLUME ] IN URINE 9.5 mg/dL 07/21 Specimen Type: URINE Comment: No hemolysis noted. Ordering Provider: ANIL BALDERAS Report Released Date/Time: Jul 21, 2023 09:25 AM Reporting Lab: [place] [address] [facility] [address] Performing Lab: [place] [address] [facility] [address] [facility] PTH, INTACT (STL) PARATHYRIN.I NTACT [MASS/VOLUME ] IN SERUM OR PLASMA 96.20 pg/mL 8.7 - 77.7 07/21 H Specimen Type: SERUM No comment entered. 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 Vital Sign Value Date Comments Source SYSTOLIC BLOOD PRESSURE 146 08/14/2024 10:33:32 [facility] DIASTOLIC BLOOD PRESSURE 88 08/14/2024 10:33:32 [facility] PULSE OXIMETRY 98 08/14/2024 10:33:32 [facility].8 08/14/2024 10:33:32 [facility] BMI 31 kg/m2 08/14/2024 10:33:32 [facility] PAIN 0 08/14/2024 10:33:32 [facility] TEMPERATURE 98 08/14/2024 10:33:32 [facility] PULSE 77 08/14/2024 10:33:32 [facility] RESPIRATION 18 08/14/2024 10:33:32 [facility] SYSTOLIC BLOOD PRESSURE 138 06/08/2024 09:08:43 [facility] DIASTOLIC BLOOD PRESSURE 84 06/08/2024 09:08:43 [facility] PULSE OXIMETRY 98 06/08/2024 09:08:43 S [facility] WEIGHT 219.7 06/08/2024 09:08:43 [facility] BMI 32 kg/m2 06/08/2024 09:08:43 [facility] PAIN 0 06/08/2024 09:08:43 [facility] TEMPERATURE 98 06/08/2024 09:08:43 [facility] PULSE 73 06/08/2024 09:08:43 [facility] RESPIRATION 16 06/08/2024 09:08:43 [facility] SYSTOLIC BLOOD PRESSURE 123 11/15/2023 10:30:15 [facility] DIASTOLIC BLOOD PRESSURE 82 11/15/2023 10:30:15 [facility] PULSE OXIMETRY 96 11/15/2023 10:30:15 S [facility] WEIGHT 209.2 11/15/2023 10:30:15 [facility] BMI 30 kg/m2 11/15/2023 10:30:15 [facility] PAIN 6 11/15/2023 10:30:15 [facility] TEMPERATURE 98.3 11/15/2023 10:30:15 [facility] PULSE 101 11/15/2023 10:30:15 [facility] RESPIRATION 16 11/15/2023 10:30:15 [facility] Encounters Combined list of: 1) Encounters from Department of [facility] Affairs facilities going backup to the last 18 months, not all [place] inpatient encounters are included; 2) Encounters from the Department of Defense facilities going backup to 280 months. Location Location Details Encounter Type Encounter Number Reason For Visit Attending Provider ADM Date DC Date Status Disposition Source [place] OUTPATIENT [id number] 326/ lt knee profile DOMINIC LEZAMA 03/16 Released with Work/Duty Limitations [facility] [facility] [place] [place] OUTPATIENT [id number] RESULTS /326 CASI ABRAHAM 04/14 Released w/o Limitations [place] [facility] [place] [place] [place] OUTPATIENT [id number] STEPHANIE GOETZ 04/17 Released w/o Limitations [place] [facility] [place] [facility] OUTPATIENT [id number] 08/07 Released w/o Limitations [facility] OUTPATIENT [id number] 08/18 Released w/o Limitations [facility] OUTPATIENT [id number] 11/14 Released w/o Limitations [facility] OUTPATIENT [id number] 04/01 Released w/o Limitations [facility] OUTPATIENT [id number] 04/19 Released with Work/Duty Limitations [facility] OUTPATIENT [id number] 05/27 Released with Work/Duty Limitations [facility] [place] [place] [id number] NO FEELING IN FINGERS BOTH HANDS-- 326 EN HAILEY BANERJEE 10/22 [facility]o Limitations [facility] [place] [facility] [place] [id number] POSS-ME RSA--32 6 EN MOUNIKA MILLER 02/13 Released w/o Limitations [facility] [place] [place] [facility] [facility](Primary Care Cl-Active [place] OUTPATIENT [id number] left eye swollen GERALD SILVA S 05/13 Released w/o Limitations [facility] Care Cl-[place] [facility]([place] Care Cl-[place] OUTPATIENT [id number] lower back pain MARCO A, CALI A 06/02 Released w/o Limitations [facility] Care [place] [facility]([place]gy [place] [id number] flu vaccine MELISSA LORA 06/30 Released w/o Limitations [facility]([employer] [facility] [place] [facility] [id number] H1N1 VACCINE LUIS ALFREDO BETHEA 09/24 Released w/o Limitations [facility]([employer] [facility] [place] [facility]) OUTPATIENT [id number] RYAN WALTERS 09/30 Released w/o Limitations [facility]) [facility]([place] [id number] EYE EXAM HAILEY THOMAS 10/16 Released w/o Limitations [facility]([place] [facility]([place] OUTPATIENT [id number] pha MAYURI STRICKLANDGT Mitchell 10/17 Released w/o Limitations [facility] [facility]([place]PATIENT [id number] Profile Status ZAHIDA STRICKLANDBRYAN Mitchell 10/22 Released w/o Limitations [facility]([place] [facility] [place] [facility]([place] [facility] [place] [id number] Profile 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 ent BEVERLEY WALTERS Hector 10/23 Released with Work/Duty Limitations [facility]([place]) [facility]([place]PAT[place] [id number] right ear pain CAROLINA PENG 11/12 Released w/o Limitations [facility]([place] [facility] [place] [facility]) OUTPATIENT [id number] [facility] SADIQ PEREZ 12/18 Released w/o Limitations [facility]) [facility]([place] [id number] ALPHONSE Briones 12/30 Released w/o Limitations [facility]([place] [facility] [place]) [facility] OUT[facility]IENT [id number] 03/10 Released w/o Limitations [facility] OUTPATIENT [id number] 03/11 Released w/o Limitations [facility] OUTPATIENT [id number] 03/14 Released w/o Limitations [facility] OUTPATIENT [id number] 04/01 Released w/o Limitations [facility] OUTPATIENT [id number] 06/29 Released w/o Limitations [facility] OUTPATIENT [id number] 09/02 Released w/o Limitations [facility] OUTPATIENT [id number] 09/21 Released w/o Limitations [facility] OUTPATIENT [id number] 10/24 Released w/o Limitations [facility] OUTPATIENT [id number] 01/08 Released w/o Limitations [facility] OUTPATIENT [id number] 01/17 Released w/o Limitations [facility](Primary Care Cl-[place] OUTPATIENT [id number] DAVE JORDAN YOVANI PADILLAY 02/15 Released w/o Limitations [facility]([place] [facility]-[place]manda h [place] [facility]) OUTPATIENT [id number] rp PRECIOUS MANUEL 02/15 Released w/o Limitations [facility]) [facility]([place] [id number] request ing amalia rocha for psych eval STANLEY YOUSSEF 03/08 Released w/o Limitations [facility]([place] [facility] [place] [facility]([place] OUT[place] [id number] knee brace STANLEY YOUSSEF 05/04 Released w/o Limitations [facility]([place] [facility]([place] [id number] xray results STANLEY YOUSSEF 05/11 Released w/o Limitations [facility]([place] [facility] [place] [facility]([place] Nurse Cl [place] OUTPAT[place] [id number] FLU MIST ALISTAIR LUGO 05/19 Released w/o Limitations [facility]([place]am [place] Medic[place] Nurse [place] [facility]) [place] [id number] rash/bl STANLEY Vazquez 05/24 Sick at Home/Quarter s [facility] [facility] [place] [facility] [id number] emg-res ult-jrm STANLEY Platt 06/03 Released w/o Limitations [facility] [facility] [place] [facility] [id number] CARPAL TUNNEL SYNDROM E GINO BLAIR 06/15 Released w/o Limitations [facility]([place]) [facility] [facility] Primary Care Clinic) OUTPATIENT [id number] TAYLOR Murdock 07/08 Released w/o Limitations [facility] Primary [facility] Clinic) KEYLA Lawson([facility]) OUTPATIENT [id number] shoulde r pain-olamide th STEVAN ALEJO 08/12 Released with Work/Duty Limitations KEYLA [facility]) KEYLA Lawson([facility]) TELE CONSULT [id number] Appt Schedul ing, Not MNR Care Coordin SINGH Vidal 08/12 Referred for Appointment KEYLA Lawson([facility]) KEYLA Lawson(Emerge ncy Room) OUTPATIENT [id number] MARIA GUADALUPE REESE 10/25 Sick at Home/Quarter s KEYLA Lawson(Marni gency Room) KEYLA Lawson([facility]) OUTPATIENT [id number] back. STEVAN ALEJO 10/26 Sick at Home/Quarter s KEYLA Lawson([facility]) KEYLA Lawson([facility]) OUTPATIENT [id number] eye exam BETSY MAIN 05/10 Released w/o Limitations KEYLA Lawson(Opto metry Clinic) KEYLA Lawson([facility]) OUTPATIENT [id number] Notes Entered by: MARIO BISHOP 15 Jun 2012 0724 ------- ------- ------- ------- -- flu shot RAFAEL BISHOP 06/15 Released w/o Limitations Napoleon ARMANDO [place], KEYLA([facility] on [facility]) Napoleon ARMANDO Christensen KEYLA([employer]-Pr e&Post Deploymen t) OUTPATIENT [id number] Notes Entered by: RANDY RICCI 05 Jul 2012 1059 ------- ------- ------- ------- -- MOUNIKA CALDERON 07/05 Released w/o Limitations Michelle ARMANDO [place], KEYLA([employer]- Pre&Pos t Deploym ent) Michelle ARMANDO KEYLA Padilla([employer]-Pr e&Post Deploymen t) OUTPATIENT [id number] Notes Entered by: Chema CANTOR 11 Oct 2012 1019 ------- ------- ------- ------- -- MOUNIKA Calderon 10/11 Released w/o Limitations Michelle ARMANDO [place], [place]LA([employer]- Pre&Pos t Deploym ent) Michelle KEYLA Allen([facility]-He aring Conservat ion) OUTPATIENT [id number] Notes Entered by: ARISTEO CHOUDHURY 11 Oct 2012 1032 ------- ------- ------- ------- -- Hearing test ARISTEO CHOUDHURY 10/11 Released w/o Limitations Michelle KEYLA Allen([facility]- Hearing Conserv ation) Michelle ARMANDO KEYLA Padilla([facility]-Im munizatio ns) OUTPATIENT [id number] Notes Entered by: Chema TANG 11 Oct 2012 1110 ------- ------- ------- ------- -- HERE FOR LABS/IM MUNIZAT IONS JERMAINE BHANDARI 10/11 Released w/o Limitations Michelle ARMANDO Uziel Christensen, KEYLA([facility]- Immuniz ations) Napoleon KEYLA Allen([facility] Hearing Program) OUTPATIENT [id number] Notes Entered by: HAYLEE MADDIE VASQUEZ 07 Nov 2012 1114 ------- ------- ------- ------- -- Ngozi Lees NICHOLAS DEY 11/07 Released w/o Limitations Napoleon ARMANDO Christensen KEYLA([facility] Hearing [facility] ) Napoleon ARMANDO Christensen KEYLA([facility]) OUTPATIENT [id number] elbos/s houlder pain LASHAWN TORRES T 02/09 Released w/o Limitations Napoleon ARMANDO Christensen KEYLA(Critical access hospital) Napoleon ARMANDO Christensen KEYLA([facility]) TELE CONSULT [id number] Notes Entered by: ROCIO GONZALEZ 2013 1204 ------- ------- ------- ------- -- X-ray Results [place] LASHAWN T 02/12 Napoleon ARMANDO Christensen KEYLA([facility]) Napoleon ARMANDO Christensen KEYLA([employer]-Pr e&Post Deploymen t) OUTPATIENT [id number] Notes Entered by: MARTHA CEJA 21 Feb 2013 1106 ------- ------- ------- ------- -- PRATIMA Cedillo 02/21 Released w/o Limitations Napoleon ARMANDO Christensen KEYLA([employer]- Pre&Pos t Deploym ent) Napoleon ARMANDO Christensen KEYLA([facility]-Op tometry) OUTPATIENT [id number] Notes Entered by: Hector BASSETT 21 Feb 2013 1123 ------- ------- ------- ------- -- vision sccreen SPEEDY Mora 02/21 Released w/o Limitations Napoleon ARMANDO Christensen KEYLA([facility]- Optomet ry) Napoleon ARMANDO Christensen KEYLA([facility]) OUTPATIENT [id number] Notes Entered by: GUILLERMO TOVAR 22 Feb 2013 0754 ------- ------- ------- ------- -- BL Shoulde r Pain STEVE POND 02/22 Released w/o Limitations Napoleon KEYLA Allen([facility]) Michelle KEYLA Allen([facility]) OUTPATIENT [id number] Notes Entered by: GUILLERMO TOVAR 06 Mar 2013 0830 ------- ------- ------- ------- -- BL Shoulde r Pain GUILLERMO TOVAR 03/06 Released w/o Limitations Napoleon KEYLA Allen([facility]) Napoleon KEYLA Allen([facility]) OUTPATIENT [id number] Notes Entered by: GUILLERMO TOVAR 09 Mar 2013 0827 ------- ------- ------- ------- -- BL Shoulde r Pain GUILLERMO TOVAR 03/09 Released w/o Limitations Napoleon KEYLA Allen([facility] on Physica l Therapy Clinic) Napoleon KEYLA Allen([facility]) OUTPATIENT [id number] Notes Entered by: GUILLERMO TOVAR 14 Mar 2013 0834 ------- ------- ------- ------- -- BL Shoulde r Pain GUILLERMO TOVAR 03/14 Released w/o Limitations [facility] KEYLA Padilla([facility] on Physica l Therapy Clinic) [facility] KEYLA Padilla([facility]) OUTPATIENT [id number] Notes Entered by: ROCIO GONZALEZ 17 Apr 2013 0945 ------- ------- ------- ------- -- LASHAWN RICHARDSON 04/17 Released w/o Limitations Napoleon KEYLA Allen([facility]) [facility] KEYLA Padilla([facility]) OUTPATIENT [id number] Notes Entered by: STEVE POND 19 Apr 2013 0754 ------- ------- ------- ------- -- f/u STEVE Angel 04/19 Released w/o Limitations Michelle Bernardoox, KEYLA([facility] on Physica l Therapy Clinic) Michelle Christensen, KEYLA([facility]) OUTPATIENT [id number] Notes Entered by: GUILLERMO TOVAR 01 May 2013 0907 ------- ------- ------- ------- -- GUILLERMO Vargas 05/01 Released w/o Limitations Michelle ARMANDO Christensen, KEYLA([facility]) Michelle ARMANDO Christensen, KEYLA([employer]-Pr e&Post Deploymen t) OUTPATIENT [id number] Notes Entered by: RANDY RICCI 04 Jun 2013 1200 ------- ------- ------- ------- -- PRATIMA CEDILLO 06/04 Released w/o Limitations Napoleon ARMANDO Christensen, KEYLA([employer]P- Pre&Pos t Deploym ent) Napoleon ARMANDO Christensen KEYLA([facility]-Im munizatio ns) OUTPATIENT [id number] Notes Entered by: DYAN ROWELL 04 Jun 2013 1214 ------- ------- ------- ------- -- HERE FOR LABS/IM MUNIZAT IONS JERMAINE BHANDARI 06/04 Released w/o Limitations Napoleon ARMANDO Christensen, KEYLA([facility]- Immuniz ations) Napoleon ARMANDO Christensen, KEYLA([facility]) OUTPATIENT [id number] Notes Entered by: LUZ MARIA COCHRAN 11 Jul 2013 0718 ------- ------- ------- ------- -- LASHAWN Mcclellan 07/11 Released w/o Limitations Michelle ARMANDO [place]([facility] on Medical Clinic) Napoleon ARMANDO Christensen KEYLA([facility]) TELE CONSULT [id number] Notes Entered by: STEPHAN NICHOLS 19 Jul 2013 0908 ------- ------- ------- ------- -- MRI Results LASHAWN TORRES 07/19 Michelle ARMANDO Christensen, [facility]LA([facility]) Michelle Christensen, KEYLA([facility]-Pr e&Post Deploymen t) OUTPATIENT [id number] Notes Entered by: NICK JIMENEZ 23 Apr 2014 0742 ------- ------- ------- ------- -- RSRP ALPHONSE WHEELER 04/23 Released w/o Limitations Michelle Christensen, KEYLA([employer]P- Pre&Pos t Deploym ent) Michelle Christensen, KEYLA([facility]-Im munizatio ns) OUTPATIENT [id number] Notes Entered by: JERMAINE WEBB 23 Apr 2014 0814 ------- ------- ------- ------- -- HERE FOR LABS/IM MUNIZAT IONS JERMAINE BHANDARI 04/23 Released w/o Limitations Michelle ARMANDO [place]ardo[place], KEYLA([facility]- Immuniz ations) Michelle Christensen, KEYLA([facility]-He aring Conservat ion) OUTPATIENT [id number] Notes Entered by: MELLISSA FRIEDMAN 23 Apr 2014 0902 ------- ------- ------- ------- -- Hearing test ALPHONSE PIMENTEL 04/23 Released w/o Limitations Napoleon [place]ANDO [place]([facility]- Hearing Conserv ation) Michelle ARMANDO Christensen, KEYLA([facility]-Op tometry) OUTPATIENT [id number] Notes Entered by: JULITA DOSHI 23 Apr 2014 0930 ------- ------- ------- ------- -- OPTOMET RY SERGEY TURNER 04/23 Released w/o Limitations Napoleon [place]- Optomet ry) Napoleon ARMANDO ChristensenKEYLA([facility]) OUTPATIENT [id number] DEVAUGHN BOX 06/13 Released w/o Limitations Michelle ROBERTS [place]) [facility] [place] OUT[place] [id number] Notes Entered by: RADHA PENA 18 Jun 2014 1555 ------- ------- ------- ------- -- ad flu shot left arm RADHA PENA 06/18 Released w/o Limitations [facility] [place]) [facility] [place] OUT[place]IENT [id number] phase 1 ets MADDI LINDSEY 06/26 Released w/o Limitations [facility] [place]) [facility] [place] [id number] ETS JG THAPA 06/26 Released w/o Limitations [facility] [place] [facility] [place] [id number] ETS NICHOLAS LARIOS 06/26 Released w/o Limitations [facility] [place] [facility] [place]) [place] [id number] phase 2 ets PERFECTO SOSA 06/28 Released w/o Limitations [facility] [place]) [facility] [place] OUTPATIENT [id number] ADONIS GOMES 07/03 Released w/o Limitations [facility] [place] [facility] [place] [id number] JG LUNDY 07/05 Released w/o Limitations [facility] [place] [facility] [place] [id number] TENDONI TIS KIAH BOWEN 07/15 Released with Work/Duty Limitations [facility] [place] KEYLA Lawson([facility] al Therapy Clinic) OUTPATIENT [id number] KIAH Johnson 07/25 Released w/o Limitations KEYLA Lawson(Phys ical Therapy Clinic) KEYLA Lawson([employer]-Pr e&Post Deploymen t) OUTPATIENT [id number] Notes Entered by: BART RIVERA 29 Jul 2014 0904 ------- ------- ------- ------- -- KEELY RIDER 07/29 Released w/o Limitations Michelle Christensen KEYLA(MRP- Pre&Pos t Deploym ent) KEYLA Lawson(Physic al Therapy Clinic) OUTPATIENT [id number] f/u - shoulde KIAH Toscano 07/30 Released with Work/Duty Limitations Napoleon KEYLA Allen(Phys ical Therapy Clinic) [facility] Outpatient Encounter [id number] RYAN NERI A 05/06 [facility] OFFICE O/P EST MOD 30-39 MIN [id number] Diagnos is: ICD-10- CM I10 Essenti al (primar y) hyperte nsion MARIE DEE A 05/10 [facility] PT EDUCATION NOC INDIVID [id number] Diagnos is: ICD-10- CM 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 Outpatient Encounter [id number] YENNY CORBETT GGY 06/21 [facility] Outpatient Encounter [id number] 06/22 [facility] Outpatient Encounter [id number] 06/24 [facility] Outpatient Encounter [id number] 07/06 [facility] Outpatient Encounter [id number] NAVI KENDRICK 07/19 [facility] Outpatient Encounter [id number] NAVI KENDRICK 07/20 [facility] OFFICE O/P EST SF 10-19 MIN [id number] Diagnos is: ICD-10- CM N18.31 Chronic kidney disease , stage 3a CHUU,ANIL 07/21 [facility] Outpatient Encounter [id number] Diagnos is: ICD-10- CM R93.3 Abnorma l finding s on dx imaging of prt digesti ve tract GUIGNON,CH [place] 07/26 [facility] Outpatient Encounter [id number] NAVI KENDRICK 07/26 [facility] OFFICE O/P EST MOD 30 MIN [id number] Diagnos is: ICD-10- CM N18.31 Chronic kidney disease , stage 3a CHANIANLACEY Brannon T 09/22 [facility] Outpatient Encounter [id number] 09/22 [facility] OFFICE O/P EST HI 40 MIN [id number] Diagnos is: ICD-10- CM I50.32 Chronic diastol ic (conges tive) heart failure JULIA HOLLINS S 11/14 [facility] Outpatient Encounter [id number] PIPER BRANDT L 03/21 [facility] Outpatient Encounter [id number] NAVI KENDRICK J 03/21 [facility] Outpatient Encounter [id number] 04/02 [facility] Outpatient Encounter [id number] 04/30 [facility] Outpatient Encounter [id number] 05/30 [facility] OFFICE O/P EST MOD 30 MIN [id number] Diagnos is: ICD-10- CM I10 Essenti al (primar y) hyperte nsion RONALDO DOMÍNGUEZ N 06/08 [facility] OFFICE O/P EST HI 40 MIN [id number] Diagnos is: ICD-10- CM I10 Essenti al (primar y) hyperte nsJULIOCESAR Edmondson S 08/14 [facility] Outpatient Encounter [id number] 08/15 [facility] Outpatient Encounter [id number] 10/18 [facility] Outpatient Encounter [id number] 10/22 [facility] Procedures Combined list of: 1) Procedures from Department of [facility] Affairs facilities [facility], not all VA non-surgical procedures are included; 2) All procedures from the Department of Defense facilities. Procedure Procedure Type Code Date Perfomer Comments [facility] huyen Physical Therapy: ___ Se ion Segments, 15 Minutes Each Physical Therapy: ___ Session Segments, 15 Minutes Each 96974 KIAH FLORENCE [facility] Physical Therapy Service Re-Evaluation Physical Therapy Service Re-Evaluation 12609 KIAH FLORENCE [facility] Physical Therapy: ___ Se ion Segments, 15 Minutes Each Physical Therapy: ___ Session Segments, 15 Minutes Each 12876 KIAH FLORENCE [facility] Physical Therapy Service Re-Evaluation Physical Therapy Service Re-Evaluation 73475 KIAH FLORENCE [facility] Physical Therapy: ___ Se ion Segments, 15 Minutes Each Physical Therapy: ___ Session Segments, 15 Minutes Each 68457 KIAH FLORENCE [facility] Physical Therapy Service Evaluation Physical Therapy Service Evaluation 96807 KIAH FLORENCE [facility] Scanning Computerized Ophthalmic Diagnostic Imaging Optic Nerve Scanning Computerized Ophthalmic Diagnostic Imaging Optic Nerve 11573 JG MARTELL Ophthalmological New Patient Start Comprehensive Care Ophthalmological New Patient Start Comprehensive Care 35073 JG MARTELL Ear mold/insert, not disposable, any type ADONIS GOMES Ear Protector Attenuation Measurements Ear Protector Attenuation Measurements 67293 ADONIS GOMES Tympanometry Tympanometry 46670 ADONIS GOMES Comprehensive Audiometry Comprehensive Audiometry 58663 ADONIS GOMES Audiometry Group Testing Audiometry Group Testing 55580 HARRIET NICHOLAS Chema [facility] Screening Test Of Visual Acuity, Quantitative, Bilateral Screening Test Of Visual Acuity, Quantitative, Bilateral 56158 JG MARTELL Spectacles Services Fitting Monofocal Except For Aphakia Spectacles Services Fitting Monofocal Except For Aphakia 13772 JG MARTELL Determination Of Refractive State Determination Of Refractive State 97979 JG MARTELL Influenza Vaccine Cell Culture Derivative, Preservative And Antibiotic Free, Trivalent, 0.5mL, IM RADHA PENA Influenza Seasonal, injectable MDCK - preservative free (Flucelvax); Series #: 1; .5 mL; IM; Left Arm; Media Armorg: [id number].; Lot: [id number]. [facility] Immunization Administration By Injection, One Vaccine Immunization Administration By Injection, One Vaccine 70597 RADHA PENA [facility] Screening Test Of Visual Acuity, Quantitative, Bilateral Screening Test Of Visual Acuity, Quantitative, Bilateral 22302 SERGEY DILLARD [facility] Audiometry Group Testing Audiometry Group Testing 01660 ALPHONSE PIMENTEL [facility] Venipuncture Venipuncture 80441 JERMAINE BHANDARI [facility] Psychotherapy Individual Approximately 30 Minutes GUY WILLOUGHBY [facility] Venipuncture Venipuncture 34662 JERMAINE BHANDARI [facility] Influenza Split Virus Vaccine 0.5mL Dosage Intramuscular JERMAINE BHANDARI [facility] Immunization Administration By Injection, One Vaccine Immunization Administration By Injection, One Vaccine 56493 JERMAINE BHANDARI [facility] Physical Therapy: ___ Se ion Segments, 15 Minutes Each Physical Therapy: ___ Session Segments, 15 Minutes Each 52111 013 GUILLERMO TOVAR Osteopathic Manip Treatment (OMT) 1-2 Body Regions Involved Osteopathic Manip Treatment (OMT) 1-2 Body Regions Involved 15550 013 STEVE POND Physical Therapy Service Re-Evaluation Physical Therapy Service Re-Evaluation 64127 013 STEVE POND Skin Test Anergy Tuberculin Intradermal Skin Test Anergy Tuberculin Intradermal 81816 013 LASHAWN TORRES [facility] Physical Therapy: ___ Se ion Segments, 15 Minutes Each Physical Therapy: ___ Session Segments, 15 Minutes Each 82605 013 GUILLERMO TOVAR Physical Therapy: ___ Se ion Segments, 15 Minutes Each Physical Therapy: ___ Session Segments, 15 Minutes Each 77347 013 GUILLERMO TOVAR 30 min [facility] Physical Therapy: ___ Se ion Segments, 15 Minutes Each Physical Therapy: ___ Session Segments, 15 Minutes Each 99987 013 GUILLERMO TOVAR 30 min [facility] Physical Therapy Service Evaluation Physical Therapy Service Evaluation 25435 013 STEVE POND Screening Test Of Visual Acuity, Quantitative, Bilateral Screening Test Of Visual Acuity, Quantitative, Bilateral 32126 013 SPEEDY BASSETT [facility] Patient Training And Self-Care Skills Patient Training And Self-Care Skills 53192 013 SANDY CHERY [facility] Audiometry Group Testing Audiometry Group Testing 93501 013 SANDY CHERY Threshold Audiogram (Pure Tone) Threshold Audiogram (Pure Tone) 61900 SANDY CHERY [facility] Immunization Administration By Injection, One Vaccine Immunization Administration By Injection, One Vaccine 24024 JERMAINE BHANDARI [facility] Anthrax Vaccine, For Intramuscular Use JERMAINE BHANDARI [facility] Audiometry Group Testing Audiometry Group Testing 14509 ARISTEO CHOUDHURY [facility] Psychologic Testing And Report Administered By Physician Psychologic Testing And Report Administered By Physician 79279 012 DAI COHEN Tabulated, Scored, interpreted and wrote report for psychological data [facility] Psychometric Neuropsych Testing Battery Admin By Test Administrator Psychometric Neuropsych Testing Battery Admin By Test Administrator 50544 012 GINO SHETH The SM required 5.75 hrs. To complete the testing of which 23 minutes involved computer-adminis tered assessments that were supervised by the examiner. [employer] Psychotherapy Individual Approximately 45 Minutes Psychotherapy Individual Approximately 45 Minutes 40812 012 DAI COHEN [facility] Immunization Administration By Injection, One Vaccine Immunization Administration By Injection, One Vaccine 50440 012 RAFAEL BISHOP [facility] Influenza Virus Vaccine Intranasal Live Attenuated 012 RAFAEL BISHOP [facility] Clinical Social Work Counseling Family Conjoint 012 RL GILMAN [facility] Spectacles Services Fitting Monofocal Except For Aphakia Spectacles Services Fitting Monofocal Except For Aphakia 19064 012 BETSY MAIN [facility] Determination Of Refractive State Determination Of Refractive State 41449 012 BETSY MAIN [facility] Ophthalmological New Patient Start Comprehensive Care Ophthalmological New Patient Start Comprehensive Care 54121 012 BETSY MAIN [facility] Scanning Computerized Ophthalmic Diagnostic Imaging Optic Nerve Scanning Computerized Ophthalmic Diagnostic Imaging Optic Nerve 48060 012 BETSY MAIN [facility] Clinical Social Work Counseling Marital 012 RL GILMAN [facility] Psychotherapy Group Interview Psychotherapy Group Interview 67780 012 SHELBY PEARL [facility] Psychotherapy Group Interview Psychotherapy Group Interview 72500 012 SHELBY PEARL [facility] Psychotherapy Group Interview Psychotherapy Group Interview 02391 012 SHELBY PEARL [facility] Clinical Social Work Counseling Family Conjoint 012 RL GILMAN [facility] Psychotherapy Group Interview Psychotherapy Group Interview 82191 012 SHELBY PEARL [facility] Psychotherapy Group Interview Psychotherapy Group Interview 24880 012 NAKUL GUEVARA 60 minutes DoD Psychotherapy Group Interview Psychotherapy Group Interview 64576 012 RL GILMAN [facility] Psychotherapy Group Interview Psychotherapy Group Interview 92161 012 ORTEGA WEEKS [facility] Psychotherapy Group Interview Psychotherapy Group Interview 21169 011 ORTEGA WEEKS [facility] Clinical Social Work Counseling Family Conjoint 011 RL GILMAN [facility] Psychotherapy Group Interview Psychotherapy Group Interview 72310 011 ORTEGA WEEKS [facility] Clinical Social Work Individual Outpatient Counseling 45 Minutes Clinical Social Work Individual Outpatient Counseling 45 Minutes 73765 011 RL GILMAN [facility] Wrist hand orthosis, wrist extension control cock-up, non molded, prefabricated, [id number] 011 GINO BLAIR [facility] A isted Exercises For ROM Assisted Exercises For ROM 77134 011 GINO BLAIR [facility] Physical Therapy Service Evaluation Physical Therapy Service Evaluation 79273 011 GINO BLAIR [facility] Influenza Virus Vaccine Intranasal Live Attenuated 011 [facility] Immunization Admin By Intranasal / Oral Route One Vaccine Immunization Admin By Intranasal / Oral Route One Vaccine 76721 011 [facility] Psychiatric Diagnostic Evaluation Comprehensive Examination Psychiatric Diagnostic Evaluation Comprehensive Examination 50426 011 MELISSA COTO [facility] Audiometry Group Testing Audiometry Group Testing 93510 011 YOVANI ORTEGA [facility] Ophthalmological Prior Patient Start Intermediate Level Care Ophthalmological Prior Patient Start Intermediate Level Care 76686 010 ALPHONSE HERNANDEZ [facility] Anthrax Vaccine, For Subcutaneous Use 010 SADIQ PEREZ [facility] Venipuncture Venipuncture 43624 010 SADIQ PEREZ [facility] Spectacles Services Fitting Monofocal Except For Aphakia Spectacles Services Fitting Monofocal Except For Aphakia 09249 010 HAILEY THOMAS FOC and S9 fitted [facility] Ophthalmological New Patient Start Comprehensive Care Ophthalmological New Patient Start Comprehensive Care 89938 010 HAILEY THOMAS Determination Of Refractive State Determination Of Refractive State 44105 010 HAILEY THOMAS [facility] Immunization Admin By Intranasal / Oral Route One Vaccine Immunization Admin By Intranasal / Oral Route One Vaccine 34731 LUIS ALFREDO BETHEA [facility] Influenza Virus Vaccine Pandemic Formulation Influenza Virus Vaccine Pandemic Formulation 29333 LUIS ALFREDO BETHEA [facility] Immunization Admin By Intranasal / Oral Route One Vaccine Immunization Admin By Intranasal / Oral Route One Vaccine 66495 MELISSA LORA [facility] Influenza Virus Vaccine Intranasal Live Attenuated MELISSA LORA [facility] Injection, ketorolac tromethamine, per 15 mg CALI STRICKLAND Please administer Toradol, 60 mg IM x one now. Thanks. [facility] Knee orthosis, elastic with joints, prefabricated, includes fitting and adjustment AVERY HILL [facility] SKIN TEST; TUBERCULOSIS, INTRADERMAL [facility] VACCINIA IMMUNE GLOBULIN, HUMAN, FOR INTRAMUSCULAR USE [facility] KNEE ORTHOSIS, ELASTIC WITH JOINTS, PREFABRICATED ITEM THAT HAS BEEN TRIMMED, BENT, MOLDED, ASSEMBLED, OR OTHERWISE CUSTOMIZED TO FIT A SPECIFIC PATIENT BY AN INDIVIDUAL WITH EXPERTISE [facility] INFLUENZA VIRUS VACCINE, TRIVALENT (IIV3), SPLIT VIRUS, 0.5 ML DOSAGE, FOR INTRAMUSCULAR USE [facility] THERAPEUTIC PROCEDURE, 1 OR MORE AREAS, EACH 15 MINUTES; THERAPEUTIC EXERCISES TO DEVELOP STRENGTH AND ENDURANCE, RANGE OF MOTION AND FLEXIBILITY [facility] THERAPEUTIC PROCEDURE, 1 OR MORE AREAS, EACH 15 MINUTES; THERAPEUTIC EXERCISES TO DEVELOP STRENGTH AND ENDURANCE, RANGE OF MOTION AND FLEXIBILITY [facility] THERAPEUTIC PROCEDURE, 1 OR MORE AREAS, EACH 15 MINUTES; THERAPEUTIC EXERCISES TO DEVELOP STRENGTH AND ENDURANCE, RANGE OF MOTION AND FLEXIBILITY [facility] SCANNING COMPUTERIZED OPHTHALMIC DIAGNOSTIC IMAGING, POSTERIOR SEGMENT, WITH INTERPRETATION AND REPORT, UNILATERAL OR BILATERAL; OPTIC NERVE [facility] EAR MOLD/INSERT, NOT DISPOSABLE, ANY TYPE [facility] AUDIOMETRIC TESTING OF GROUPS [facility] SCREENING TEST OF VISUAL ACUITY, QUANTITATIVE, BILATERAL [facility] INFLUENZA VIRUS VACCINE, TRIVALENT (CCIIV3), DERIVED FROM CELL CULTURES, SUBUNIT, PRESERVATIVE AND ANTIBIOTIC FREE, 0.5 ML DOSAGE, FOR INTRAMUSCULAR USE [facility] SCREENING TEST OF VISUAL ACUITY, QUANTITATIVE, BILATERAL [facility] AUDIOMETRIC TESTING OF GROUPS [facility] COLLECTION OF VENOUS BLOOD BY VENIPUNCTURE [facility] PSYCHOTHERAPY, 30 MINUTES WITH PATIENT [facility] THERAPEUTIC, PROPHYLACTIC, OR DIAGNOSTIC INJECTION (SPECIFY SUBSTANCE OR DRUG); SUBCUTANEOUS OR INTRAMUSCULAR [facility] COLLECTION OF VENOUS BLOOD BY VENIPUNCTURE [facility] APPLICATION OF A MODALITY TO 1 OR MORE AREAS; TRACTION, MECHANICAL [facility] OSTEOPATHIC MANIPULATIVE TREATMENT (OMT); 1-2 BODY REGIONS INVOLVED [facility] SKIN TEST; TUBERCULOSIS, INTRADERMAL [facility] THERAPEUTIC PROCEDURE, 1 OR MORE AREAS, EACH 15 MINUTES; THERAPEUTIC EXERCISES TO DEVELOP STRENGTH AND ENDURANCE, RANGE OF MOTION AND FLEXIBILITY [facility] THERAPEUTIC PROCEDURE, 1 OR MORE AREAS, EACH 15 MINUTES; THERAPEUTIC EXERCISES TO DEVELOP STRENGTH AND ENDURANCE, RANGE OF MOTION AND FLEXIBILITY [facility] THERAPEUTIC PROCEDURE, 1 OR MORE AREAS, EACH 15 MINUTES; THERAPEUTIC EXERCISES TO DEVELOP STRENGTH AND ENDURANCE, RANGE OF MOTION AND FLEXIBILITY [facility] PHYSICAL THERAPY EVALUATION [facility] SCREENING TEST OF VISUAL ACUITY, QUANTITATIVE, BILATERAL [facility] AUDIOMETRIC TESTING OF GROUPS [facility] ANTHRAX VACCINE, FOR SUBCUTANEOUS OR INTRAMUSCULAR USE [facility] AUDIOMETRIC TESTING OF GROUPS [facility] PSYCHOLOG TESTING (ASSESS EMOTION,INTELLECT ABILITIES,PERSONALI TY & PSYCHOPATH,EG,MMPI, [place])/HR PSYCHOLOGIST/PHYS TIME,BOTH [id number] ADMIN TEST TO PAT & INTERP TEST RESULT & PREP RPT [facility] NEUROPSYC TSTNG(EG,YUSUF-R TIA NEUROPSYC DENYS,SUYAPA MEMRY SCALES&[place] [facility] TST),W QUALIFIED HEALTH CARE PROFSIONAL INTERP&RPT,ADMINIST ERED DENTAL TREATMENT COORDINATOR,/HR,MONALISA CABEZAS,FCE-2-FCE [facility] INDIVIDUAL PSYCHOTHERAPY, INSIGHT ORIENTED, BEHAVIOR MODIFYING AND/OR SUPPORTIVE, IN AN OFFICE OR OUTPATIENT FACILITY, APPROXIMATELY 45 TO 50 MINUTES [id number] WITH THE PATIENT [facility] IMMUNIZATION ADMINISTRATION BY INTRANASAL OR ORAL ROUTE; 1 VACCINE (SINGLE OR COMBINATION VACCINE/TOXOID) [facility] FITTING OF SPECTACLES, EXCEPT FOR APHAKIA; MONOFOCAL [facility] FAMILY PSYCHOTHERAPY (CONJOINT PSYCHOTHERAPY) (WITH PATIENT PRESENT), 50 MINUTES [facility] COLLECTION OF VENOUS BLOOD BY VENIPUNCTURE [facility] FAMILY PSYCHOTHERAPY (CONJOINT PSYCHOTHERAPY) (WITH PATIENT PRESENT), 50 MINUTES [facility] SCREENING TEST OF VISUAL ACUITY, QUANTITATIVE, BILATERAL [facility] GROUP PSYCHOTHERAPY (OTHER THAN OF A MULTIPLE-FAMILY GROUP) DoD GROUP PSYCHOTHERAPY (OTHER THAN OF A MULTIPLE-FAMILY GROUP) DoD GROUP PSYCHOTHERAPY (OTHER THAN OF A MULTIPLE-FAMILY GROUP) DoD FAMILY PSYCHOTHERAPY (CONJOINT PSYCHOTHERAPY) (WITH PATIENT PRESENT), 50 MINUTES [facility] GROUP PSYCHOTHERAPY (OTHER THAN OF A MULTIPLE-FAMILY GROUP) DoD GROUP PSYCHOTHERAPY (OTHER THAN OF A MULTIPLE-FAMILY GROUP) [facility] INJECTION, KETOROLAC TROMETHAMINE, PER 15 MG SKIN TEST; TUBERCULOSIS, INTRADERMAL [facility] GROUP PSYCHOTHERAPY (OTHER THAN OF A MULTIPLE-FAMILY GROUP) [facility] GROUP PSYCHOTHERAPY (OTHER THAN OF A MULTIPLE-FAMILY GROUP) DoD GROUP PSYCHOTHERAPY (OTHER THAN OF A MULTIPLE-FAMILY GROUP) [facility] FAMILY PSYCHOTHERAPY (CONJOINT PSYCHOTHERAPY) (WITH PATIENT PRESENT), 50 MINUTES [facility] GROUP PSYCHOTHERAPY (OTHER THAN OF A MULTIPLE-FAMILY GROUP) INDIVIDUAL PSYCHOTHERAPY, INSIGHT ORIENTED, BEHAVIOR MODIFYING AND/OR SUPPORTIVE, IN AN OFFICE OR OUTPATIENT FACILITY, APPROXIMATELY 45 TO 50 MINUTES [id number] WITH THE PATIENT [facility] HRT FAIL ASSESS (INC ASSESS ALL FOLLOW COMPS) (CAD):BLOOD PRESS GLORIA (1999F) LEVL ACTVTY ASSESS (1003F) CLIN SYMPT VOL OVERLOAD ASSESS (4F) WT,REC () CLIN SIGNS VOL OVERLOAD ASSESS () [facility] PRESCRIPTION DRUG, GENERIC [facility] WRIST HAND ORTHOSIS, WRIST EXTENSION CONTROL COCK-UP, NON MOLDED, PREFABRICATED, [id number] [facility] INFLUENZA VIRUS VACCINE, TRIVALENT, LIVE (LAIV3), FOR INTRANASAL USE 011 [facility] PSYCHIATRIC DIAGNOSTIC INTERVIEW EXAMINATION 011 [facility] AUDIOMETRIC TESTING OF GROUPS [facility] OPHTHALMOLOGICAL SERVICES: MEDICAL EXAMINATION AND EVALUATION, WITH INITIATION OR CONTINUATION OF DIAGNOSTIC AND TREATMENT PROGRAM; INTERMEDIATE, ESTABLISHED PATIENT [facility] ANTHRAX VACCINE, FOR SUBCUTANEOUS OR INTRAMUSCULAR USE [facility] FITTING OF SPECTACLES, EXCEPT FOR APHAKIA; MONOFOCAL [facility] INFLUENZA VIRUS VACCINE, PANDEMIC FORMULATION, H1N1 [facility] IMMUNIZATION ADMINISTRATION BY INTRANASAL OR ORAL ROUTE; 1 VACCINE (SINGLE OR COMBINATION VACCINE/TOXOID) [facility] INJECTION, KETOROLAC TROMETHAMINE, PER 15 MG [facility] Social History Combined list of available smoking, tobacco, and other social history from [facility] and [facility] facilities. Social History Type Response Date Comment Sour e Tobacco smoking status NHIS [facility] FORMER USER 01/05/2023 [facility] of [facility] History of tobacco use IA-TOBACCO USER E VERY DAY 11/20/2021 [facility] History of tobacco use [facility]-TOBACCO USER E VERY DAY 11/20/2020 [facility] History of tobacco use IA-TOBACCO USE CO UNSEL NO 05/30/2019 [facility] History of tobacco use TOBACCO USER [facility] 10/13/2017 [facility] This section is an empty social history section. [facility] Plan of Care List of future care activities from Department [facility] facilities. Additional future care activities may be listed in the Assessment and Plan section. Date/Time Care Activity Care Activity Detail Facili ty 11/08/2024 AMBULATORY - MEDICINE AMBULATORY - MEDICI NE [facility] 02/13/2025 AMBULATORY - MEDICINE AMBULATORY - MEDICI [facility] Advance Directives List of completed, amended, or rescinded Advance Directives on record at Department of [facility] facilities. An actual copy of the Directive is not included. Date Advance Directive Provider Source 08/29/2015 ADVANCE DIRECTIVE DISCUSSION KATARINA ERNST [place], [place] [facility]
--- OUTSIDE RECORDS SUMMARY | 2024-11-01 09:47 | XMS_ITS | Encounter Summary ---
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 Date/Time Encounter Type Encounter Description Reason Provider Source Aug 14, 2024 10:30 AM OFFICE O/P EST HI 40 MIN CARDIOLOGY ICD-10-CM I10 Essential (primary) hypertension SHEA MULLER Melodie Encounter Template Text not used by ID Assessments - Encounter Diagnoses This section includes the primary and secondary diagnoses documented for the Encounter. Date/Time Primary/Secondary Diagnosis Diagnosis Name Provider Source Aug 27, 2024 10:14 AM PRIMARY Essential (primary) hypertension SHEA MULLER [facility] Aug 27, 2024 10:14 AM SECONDARY Chronic kidney disease, stage 3a SHEA MULLER [facility] Aug 27, 2024 10:14 AM SECONDARY Other male erectile dysfunction SHEA MULLER [facility] Aug 27, 2024 10:14 AM SECONDARY Sleep apnea, unspecified SHEA MULLER [facility] Plan of Treatment: Future Appointments (+ 6 months) and Future Tests (+/- 45 days) The Plan of Treatment section includes future care activities for the patient from all ID treatmentfacilities. This section includes future appointments and future orders which are active, pending or scheduled. Future Appointments This section includes appointments that were scheduled to occur 6 months from the date of the Encounter, up to a maximum of 20 appointments. The data comes from all [facility]. Appointment Date/Time Appointment Type Appointme nt Facility Name Nov 08, 2024 10:00 AM AMBULATORY - MEDICINE [facility] Active, Pending, and Scheduled Orders This section includes a listing of several types of active, pending, and scheduled orders, including clinic medications orders, diagnostic test orders, procedure orders and consult orders; where the start date of the order is 45 days before the date of the Encounter or 45 days after the date of theEncounter. The data comes from all [facility]. Test Date/Time Test Type Test Details Facility Name Aug 13, 2024 12:00 AM Laboratory - Chemi stry Order RENAL PANEL GREEN LI/HEP BLD/PLAS PLASMA SP [facility] Vital Signs: All taken on the encounter date This section contains inpatient and outpatient Vital Signs collected on the date of the Encounter. Date/Time Temperature Pulse Blood Pressure Respiratory Rate SP02 Pain Height Weight Body Mass Index Source Aug 14, 2024 10:34 AM 145/92 [facility] Aug 14, 2024 10:33 AM 98 77 146/88 18 98 0 217.8 31 [facility] Advance Directives: All historical and current Section Date Range: From patient's date of to the date document was created. This section includes ALL of a patient's completed or amended [facility] Advance and Rescinded Directives. The entries below indicate that a directive exists for the patient, but an actual copy is not included with this document. The data comes from all [facility]. Date Advance Directives Provider Source Aug 29, 2015 ADVANCE DIRECTIVE DISCUSSION KATARINA ERNST NP, [place] [facility] Encounter Notes: All associated encounter notes This section contains the clinical notes associated to the Encounter. Date/Time Encounter Note(s) Provider Source Aug 14, 2024 10:37 AM CARDIOLOGY OUTPATI ENT NOTE: LOCAL TITLE: CARDIOLOGY OUTPATIENT FOLLOW UP ST STANDARD TITLE: CARDIOLOGY OUTPATIENT NOTE DATE OF NOTE: AUG 14, 2024@10:37 ENTRY DATE: AUG 14, 2024@10:37:12 AUTHOR: RENZO,SHEA S EXP COSIGNER: URGENCY: STATUS: COMPLETED Cardiology Outpatient Note [facility] CARDIOLOGY SERVICE: CARDIOLOGY NOTE REASON FOR VISIT: HTN, HFpEF per OSH HPI: Pati Koo is a pleasant 44-year-old male with a pertinent medical history of heart failure with preserved EF per echo completed outside hospital where he presented last January 2023 with a headache and lower extremity edema. He had elevated troponins and proBNP. They completed a CT for PE protocol it was negative for PE. Vague reports of mediastinal LAD. No echo report available. Pati had reported that he had not been taking his BP meds since his diagnosis of HTN in 2007. His SBP would run [id number] most of the time. He stopped these due to ED episodes while on the medications. He reports since that hospital stay he has been taking his medications as prescribed. He is on chlorthalidone 25 mg, empagliflozin 12.5 mg, and losartan 50 mg daily. He denies chest pain, shortness of breath, denies lower leg swelling, denies fast or irregular heartbeats. He does have a history of ARNALDO and has been using his CPAP nightly. Has a history of chronic kidney disease and is followed by renal. 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 When he gets home he likes to play video games with his for about an hour. Does not do any regular exercise activity. Did report swimming in the summer with his 4 children ages 7-17. He reports since being seen in November he has lost both his mother and his stepfather, also lost his biological father last year Also since last seen had the following surgical procedure: Right shoulder arthroscopic rotator cuff repair, open biceps tenodesis (R), open biceps tenodesis (R) s/p left rotator cuff repair on 08/15/2023 Social hx:former smoker quit 07/2022 Family hx: Noncontributory, mother had COPD due to complications with pneumonia ROS: 11 point review of systems completed with all pertinent information placed in HPI ACTIVE PROBLEMS: 1) Benign essential hypertension 2) Back pain 3) Erectile dysfunction (SNOMED CT [id number]) 4) Sleep apnea 5) Pain in left knee 6) Chronic kidney disease stage 3A 7) Exposure to potentially hazardous substance ALLERGIES:HCTZ HYDROCHLOROTHIAZIDE, LISINOPRIL ACTIVE MEDICATIONS: Active and Recently Outpatient Medications (including Supplies): Active Outpatient Medications Status 1) CHLORTHALIDONE 25MG TAB TAKE ONE TABLET BY MOUTH ONCE ACTIVE A DAY FOR HIGH BLOOD PRESSURE 2) EMPAGLIFLOZIN 25MG TAB TAKE ONE-HALF TABLET BY MOUTH ACTIVE ONCE A DAY FOR HEART FAILURE 3) LOSARTAN 100MG TAB TAKE ONE-HALF TABLET BY MOUTH ONCE ACTIVE A DAY FOR HIGH BLOOD PRESSURE All cardiac medications listed above were reconciled during the visit No diagnostic studies here LAST LABS: TSH: TSH 2.399 uIU/mL 01/07/2023 08:27 TRIGLYCERIDE 57 mg/dL 01/07/2023 08:27 CHOLESTEROL 143 mg/dL 01/07/2023 08:27 HDL(New) 41 mg/dL 01/07/2023 08:27 CALCULATED LDL 91 mg/dL 01/07/2023 08:27 HGA1C 5.2 % 01/07/2023 08:27 Comprehensive Metabolic Panel Results: SODIUM 140 mEq/L 06/08/2024 09:41 POTASSIUM 3.7 mEq/L 06/08/2024 09:41 CHLORIDE 103 mEq/L 06/08/2024 09:41 UREA NITROGEN 18.4 mg/dL 06/08/2024 09:41 CREATININE 1.70 H mg/dL 06/08/2024 09:41 CALCIUM 9.6 mg/dL 06/08/2024 09:41 PROTEIN 7.3 g/dL 01/07/2023 08:27 ALBUMIN 4.4 g/dL 06/08/2024 09:41 ALKALINE PHOSPHATASE 69 U/L 01/07/2023 08:27 ALT/SGPT 17 U/L 01/07/2023 08:27 AST/SGOT 16 U/L 01/07/2023 08:27 TOTAL BILIRUBIN 0.5 mg/dL 01/07/2023 08:27 CARBON DIOXIDE 28 mEq/L 06/08/2024 09:41 GLUCOSE 90 mg/dL 06/08/2024 09:41 EGFR (CKD-EPI 2020) 50.7 06/08/2024 09:41 WBC 5.2 10*3/uL 06/08/2024 09:41 RBC 5.21 10*6/uL 06/08/2024 09:41 HGB 15.5 g/dL 06/08/2024 09:41 HCT 45.3 % 06/08/2024 09:41 MCV 86.9 fL 06/08/2024 09:41 MCH 29.8 pg 06/08/2024 09:41 MCHC 34.2 g/dL 06/08/2024 09:41 RDW 12.3 % 06/08/2024 09:41 PLT 175 10*3/uL 06/08/2024 09:41 MPV 9.5 fL 06/08/2024 09:41 NEUTROPHILS, AUTO % 65 % 06/08/2024 09:41 LYMPHOCYTES, AUTO % 20 % 06/08/2024 09:41 MONOCYTES, AUTO % 10 % 06/08/2024 09:41 EOSINOPHILS, AUTO % 4 % 06/08/2024 09:41 BASOPHILS, AUTO % 1 % 06/08/2024 09:41 NEUTROPHILS, ABSOLUTE 3.39 10*3/uL 06/08/2024 09:41 LYMPHOCYTES, ABSOLUTE 1.02 10*3/uL 06/08/2024 09:41 MONOCYTES, ABSOLUTE 0.52 10*3/uL 06/08/2024 09:41 EOSINOPHILS, ABSOLUTE 0.22 10*3/uL 06/08/2024 09:41 BASOPHILS, ABSOLUTE 0.03 10*3/uL 06/08/2024 09:41 PHYSICAL ASSESSMENT GENERAL: well-mannered, well-groomed 44 yo male NECK: no JVD, no carotid bruit CARDIO: RRR, S1S2 present, no murmur PULM: LSCB, no cough, rales or wheeze ABDOMEN: nondistended, nontender and soft EXTREMITIES: 2+ post tibial pulses, with no edema NEUROLOGIC: AAOx3, normal motor strength PSYCHIATRIC: affect and mood normal VITALS: 219.7 lb [99.65 kg] (06/08/2024 09:08) 70 in [177.8 cm] (09/22/2023 10:14) Temperature: 98 F [36.7 C] (08/14/2024 10:33) Blood Pressure: 145/92 (08/14/2024 10:34) Pulse: 77 (08/14/2024 10:33) Respirations: 18 (08/14/2024 10:33) ECG: ASSESSMENT AND PLAN 1. HTN BP today 145/92 continue chlorthalidone, losartan, empagliflozin. Will obtain the echo for baseline. Encouraged him to increase activity to 30 minutes 5 times a week to disengage, meditate and find balance 2. ARNALDO uses CPAP consistently 3. HFpEF discussed limiting salt and increase in activity to 30 minutes daily at least 5 times a week if for nothing else for meditation 4. Discussed risk of aneurysms due to uncontrolled high blood pressure. Again will obtain echo for baseline reports need for refill of his ED medications. Will tag his PCP to order as needed RTC in 1 year Spent 40 min reviewing records/labs/obtaining history/examining patient/ordering labs, tests, medications/discussing results and plan with patient and/or outside provider. All patients are counseled on the risks of smoking at every visit including patients with no history of smoking in order to dissuade them from starting the use of tobacco products; former smokers to minimize recidivism of nicotine dependence: and current smokers in an effort to help them cease the use of nicotine products. Where relevant [age between 50-60-years and history of smoking], we and/or the PCP will obtain an abdominal ultrasound to screen for the possibility of an abdominal aortic aneurysm and ABIs to screen for occult PAD. When completed, the results will be found in [facility]. # HEALTH PROMOTION/HEALTH MAINTENANCE & EDUCATION DISEASE: Discussed treatment options & counseled on exacerbating factors. # DIAGNOSTIC TESTING AND LABORATORY DATA: Pertinent labs and diagnostic tests (both normal and abnormal) are included above and were reviewed and discussed with the patient within 7-days of the test and during this visit. - DISEASE: Coordinated care; discussed treatment options, & counseled on exacerbating factors. - Encouraged participation in regular exercise program 3-5 days/week - Maximize risk factor reduction & lifestyle modifications i.e. BP <130/80 and LDL goal <70 - Discussed at length about lifestyle modifications in regard to diet, exercise, and medication compliance. -Assessed smoking habits and whether actively using tobacco products or a past history of nicotine dependence, smoking cessation strategies were reinforced. - In patients with a history of CHF, KEVIN/ARB use is considered and held when contraindications such as allergies, renal function preclude use. If not mentioned in the above note, these assessments are detailed in prior cardiology notes. The patient verbalized understanding of information regarding: labs, meds, and plans for care. Reinforcement is indicated. # MEDICATION RECONCILIATION: - All cardiac medications were reconciled during the visit. - All patients with an EF </= 40% are considered for Kevin inhibitors or ARBs except when contraindicated due to intolerance/allergy, hypotension, or renal disease. Documentation is found in the historical record if not repeated in this note. - All patients with an EF </= 40% are considered for beta blockers and aspirin, contraindicated due to intolerance/allergy, hypotension, bradycardia, or bleeding risk. Documentation is found in the historical record if not repeated in this note. - Anticoagulation therapy was discussed with all patients in the setting of atrial flutter/fibrillation and held in cases where the complications of bleeding (e.g., fall risk) outweighs the risk of stroke. All patients on anticoagulation medications are counseled on bleeding risks and the warning signs of a stroke or TIA. - Except where mentioned or restricted, the PCP may renew the cardiac medications. - Other listed profile meds will continue as directed by the PCP (primary provider). Thank you for allowing me to participate in this patient's care. Please don't hesitate to call with any questions or concerns.Life Sustaining Treatment Orders Life Sustaining Treatment Orders /es/ SHEA MULLER INDUSTRIAL HYGENIST CARDIOLOGY/ELECTROPHYSIOLOGY INDUSTRIAL HYGENIST Signed: 08/14/2024 11:19 SHEA MULLER [facility]
--- OUTSIDE RECORDS SUMMARY | 2024-11-01 09:48 | XMS_ITS | Encounter Summary ---
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 Date/Time Encounter Type Encounter Description Reason Provider Source Jun 08, 2024 09:00 AM OFFICE O/P EST MOD 30 MIN RENAL/NEPHROL(EXC EPT DIALYSIS) ICD-10-CM I10 Essential (primary) hypertension MORENA DOMÍNGUEZ Melodie Encounter Template Text not used by [place] Assessments - Encounter Diagnoses This section includes the primary and secondary diagnoses documented for the Encounter. Date/Time Primary/Secondary Diagnosis Diagnosis Name Provider Source Jun 08, 2024 12:43 PM PRIMARY Essential (primary) hypertension RASHMI DOMÍNGUEZ [facility] Jun 08, 2024 12:43 PM SECONDARY Chronic kidney disease, stage 3a RASHMI DOMÍNGUEZ [facility] Plan of Treatment: Future Appointments (+ 6 months) and Future Tests (+/- 45 days) The Plan of Treatment section includes future care activities for the patient from all [place] treatmentfacilities. This section includes future appointments and future orders which are active, pending or scheduled. Future Appointments This section includes appointments that were scheduled to occur 6 months from the date of the Encounter, up to a maximum of 20 appointments. The data comes from all [place] treatment facilities. Appointment Date/Time Appointment Type Appointme nt Facility Name Aug 14, 2024 10:30 AM AMBULATORY - MEDICINE [facility] Nov 08, 2024 10:00 AM AMBULATORY - MEDICINE [facility] Lab Results: +/- 30 days of the encounter This section includes the Chemistry and Hematology Lab Results on record with [place] for the patient. Radiology Reports and Pathology Reports are provided separately, in subsequent sections. Lab Results This section contains the Chemistry/Hematology Results that were resulted 30 days before or 30 daysafter the date of the Encounter. Date/Time Source Result Type Result - Unit Interpretation Reference Range Comment Jun 08, 2024 09:46 AM [facility] PROTEIN URINE Specimen Type: URINE No comment entered. Ordering Provider: Hermila DOMÍNGUEZ Report Released Date/Time: Jun 08, 2024 09:23 AM Reporting Lab: [address] [phone] Performing Lab: [address] [address] PROTEIN URINE 10.2 mg/dL Jun 08, 2024 09:46 AM [facility] MICRAL/CREAT PROFILE (STL) Specimen Type: URINE No comment entered. Ordering Provider: Hermila DOMÍNGUEZ Report Released Date/Time: Jun 08, 2024 09:23 AM Reporting Lab: [facility] [address] [place] [phone] Performing Lab: [address] [address] URINE ALBUMIN (PB-STL) 39.4 mg/L uACR (STL) 48 mg/g H 0-29 CREATININE URINE/OTHERS 82.1 mg/dL 63-166 Jun 08, 2024 09:41 AM [facility] PTH, INTACT (STL) Specimen Type: SERUM No comment entered. Ordering Provider: Hermila DOMÍGNUEZ Report Released Date/Time: Jun 08, 2024 09:04 AM Reporting Lab: [facility] [address] [place] [phone] Performing Lab: [address] [address] PTH, INTACT (STL) 67.00 pg/mL 8.7-77.7 Jun 08, 2024 09:41 AM [facility] VITAMIN D, 25-HYDROXY Specimen Type: SERUM No comment entered. Ordering Provider: Hermila DOMÍNGUEZ Report Released Date/Time: Jun 08, 2024 09:04 AM Reporting Lab: [address] [phone] Performing Lab: [address] [phone] VITAMIN D, 25-HYDROXY 45.4 ng/mL 30-96 Jun 08, 2024 09:41 AM [facility] RENAL PANEL Specimen Type: PLASMA Comment: No hemolysis noted. Ordering Provider: Hermila DOMÍNGUEZ Report Released Date/Time: Jun 08, 2024 09:04 AM Reporting Lab: [address] [phone] Performing Lab: [address] [phone] CREATININE 1.70 mg/dL H 0.7-1.3 UREA NITROGEN 18.4 mg/dL 9.0-25.0 GLUCOSE 90 mg/dL 72-99 SODIUM 140 meq/L 136-145 POTASSIUM 3.7 meq/L 3.5-5 CHLORIDE 103 meq/L 98-107 CARBON DIOXIDE 28 meq/L 22-31 CALCIUM 9.6 mg/dL 8.4-10.4 PHOSPHOROUS 2.2 mg/dL L 2.3-4.7 ALBUMIN 4.4 g/dL 3.4-5 EGFR (CKD-EPI 2020) 50.7 >60 Jun 08, 2024 09:41 AM [facility] CBC Specimen Type: BLOOD No comment entered. Ordering Provider: Hermila DOMÍNGUEZ Report Released Date/Time: Jun 08, 2024 09:04 AM Reporting Lab: [address] [place] [address] Performing Lab: [facility] [address] [place] [phone] WBC 5.2 10*3/uL 3.6-11.2 RBC 5.21 10*6/uL 4.10-5.70 HGB 15.5 g/dL 13.1-16.8 HCT 45.3 38.2-48.4 MCV 86.9 fL 80.0-100.0 MCH 29.8 pg 27.0-34.0 MCHC 34.2 g/dL 33.0-36.0 PLT 175 10*3/uL 150-400 MPV 9.5 fL 7.5-11.2 RDW 12.3 11.8-15.1 LYMPHOCYTES, AUTO % 20 MONOCYTES, AUTO % 10 NEUTROPHILS, AUTO % 65 EOSINOPHILS, AUTO % 4 BASOPHILS, AUTO % 1 LYMPHOCYTES, ABSOLUTE 1.02 10*3/uL 0.77-4.50 MONOCYTES, ABSOLUTE 0.52 10*3/uL 0.19-0.80 NEUTROPHILS, ABSOLUTE 3.39 10*3/uL 2.10-8.00 EOSINOPHILS, ABSOLUTE 0.22 10*3/uL 0.00-0.60 BASOPHILS, ABSOLUTE 0.03 10*3/uL 0.00-0.20 Vital Signs: All taken on the encounter date This section contains inpatient and outpatient Vital Signs collected on the date of the Encounter. Date/Time Temperature Pulse Blood Pressure Respiratory Rate SP02 Pain Height Weight Body Mass Index Source Jun 08, 2024 09:08 AM 98 73 138/84 16 98 0 219.7 32 [facility] Advance Directives: All historical and current Section Date Range: From patient's date of to the date document was created. This section includes ALL of a patient's completed or amended [place] Advance and Rescinded Directives. The entries below indicate that a directive exists for the patient, but an actual copy is not included with this document. The data comes from all [place] facilities. Date Advance Directives Provider Source Aug 29, 2015 ADVANCE DIRECTIVE DISCUSSION KATARINA ERNST NP, [place] [facility] Encounter Notes: All associated encounter notes This section contains the clinical notes associated to the Encounter. Date/Time Encounter Note(s) Provider Source Jun 08, 2024 09:07 AM NEPHROLOGY OUTPATIENT NOTE: LOCAL TITLE: NEPHROLOGY OUTPATIENT FOLLOW UP [facility] STANDARD TITLE: NEPHROLOGY OUTPATIENT NOTE DATE OF NOTE: JUN 08, 2024@09:07 ENTRY DATE: JUN 08, 2024@09:07:35 AUTHOR: DANA DOMÍNGUEZ COSIGNER: URGENCY: STATUS: COMPLETED Subjective: 44 y.o male with PMH significant for HTN, ARNALDO, CKD, HFpEF, chronic knee/back pain, who presents to renal clinic for f/u of CKD and related issues. Last seen in renal clinic by renal PA Jimi in September. Denies chest pain, sob, changes in urination, dysuria, hematuria, nocturia, claudication, weakness, fatigue, dysgeusia, rashes, pruritis. brought bp log to clinic was noted to be elevated some weeks past but more at goal recently. He increased chlorthalidone from 12.5mg to 25 when his bp was trending higher and he had some le edema. He denied cigarette smoking but vapes. He is sodium restricted only cooks with Mrs. Abbott. [place] asked for med refills to include aspirin and sildenafil Home bp log systolic most 120s-130s but sometimes in the 150s and 160s in past weeks PROBLEM LIST: 1) Benign essential hypertension 2) Back pain 3) Erectile dysfunction (SNOMED CT [id number]) 4) Sleep apnea 5) Pain in left knee 6) Chronic kidney disease stage 3A 7) Exposure to potentially hazardous substance ROS none significant except as stated above Outpatient Medications: Active Outpatient Medications (including Supplies): Active Outpatient Medications Status 1) ASPIRIN 81MG EC TAB TAKE ONE TABLET BY MOUTH ONCE A ACTIVE DAY FOR CARDIOVASCULAR DISEASE TAKE WITH FOOD. 2) CHLORTHALIDONE 25MG TAB TAKE ONE-HALF TABLET BY MOUTH ACTIVE (S) ONCE A DAY FOR HIGH BLOOD PRESSURE 3) EMPAGLIFLOZIN 25MG TAB TAKE ONE-HALF TABLET BY MOUTH ACTIVE ONCE A DAY FOR HEART FAILURE 4) LOSARTAN 100MG TAB TAKE ONE-HALF TABLET BY MOUTH ONCE ACTIVE A DAY FOR HIGH BLOOD PRESSURE 5) SILDENAFIL CITRATE 100MG TAB TAKE ONE TABLET BY MOUTH ACTIVE ONE HOUR PRIOR TO SEXUAL ACTIVITY FOR ERECTILE DYSFUNCTION NEEDED - LIMIT 6 DOSES PER 30 DAYS also on sildenafil Physical exam: Temperature: 98.3 F [36.8 C] (11/15/2023 10:30) Blood Pressure: 123/82 (11/15/2023 10:30) Pulse: 101 (11/15/2023 10:30) Respirations: 16 (11/15/2023 10:30) O2 Saturation: 96% (11/15/2023 10:30) Weight: 209.2 lb [94.89 kg] (11/15/2023 10:30) Height: 70 in [177.8 cm] (09/22/2023 10:14) General:43 MALENOT OR NAD, WNWD HEENT: sclera anicteric NECK: Supple, no thyromegaly LUNGS: CTAB, regular unlabored CV: RRR, S1 S2, no S3 S4 or murmurs ABD: round/non distended, +BS EXT: no edema MOOD: appropriate, pleasant ASSOCIATE PRINCIPAL: non focal Lab Data: CBC: WBC 5.2 10*3/uL 06/08/2024 09:41 RBC 5.21 [...] 09:41 BASOPHILS, ABSOLUTE 0.03 10*3/uL 06/08/2024 09:41 Renal Function Panel: SODIUM 140 mEq/L 06/08/2024 09:41 POTASSIUM 3.7 mEq/L 06/08/2024 09:41 CHLORIDE 103 mEq/L 06/08/2024 09:41 UREA NITROGEN 18.4 mg/dL 06/08/2024 09:41 CREATININE 1.70 H mg/dL 06/08/2024 09:41 CALCIUM 9.6 mg/dL 06/08/2024 09:41 CARBON DIOXIDE 28 mEq/L 06/08/2024 09:41 GLUCOSE 90 mg/dL 06/08/2024 09:41 EGFR (CKD-EPI 2020) 50.7 06/08/2024 09:41 ALBUMIN 4.4 g/dL 06/08/2024 09:41 PHOSPHOROUS 2.2 L mg/dL 06/08/2024 09:41 Intact PTH: VITAMIN D, 25-HYDROXY 40.5 ng/mL 07/21/2023 10:13 Urine Studies: URINE COLOR Colorless 01/08/2023 10:21 APPEARANCE Clear 01/08/2023 10:21 U.PH 6.5 01/08/2023 10:21 U.BILIRUBIN Negative mg/dL 01/08/2023 10:21 U.NITRITE Negative mg/dL 01/08/2023 10:21 URINE RBC/HPF <1 /HPF 01/08/2023 10:21 URINE WBC/HPF 1 /HPF 01/08/2023 10:21 SQUAMOUS EPITH. <1 /HPF 01/08/2023 10:21 MUCUS RARE /LPF 01/08/2023 10:21 HYALINE CASTS 4 /LPF 01/08/2023 10:21 CREATuF: 82.1 (06/08/24 09:46) M/CREAT: 48 (06/08/24 09:46) MICRAL: 39.4 (06/08/24 09:46) Assessment/Recommendations #CKD G3a A2: -Etiology likely r/t HTN related CKD vs renovascular disease -creat 1.7 stable -uACR 48 mg/g improved -- on ARB and empa -Avoid nephrotoxic agents such as NSAIDS, discussed importance of BP optimization - continue good hydration -counselled on quitting vapping #Hypertension: -bp at goal, no edema -will continue chlorthalidone 25mg daily as he currently takes -also Losartan 50mg daily and empa 12.5mg daily -continue low sodium diet -continue limiting caffeine / EtOH intake - continue keeping bp log and contact clinic if reading trending higher #ARNALDO: continue using CPAP nightly #Secondary hyperparathyroidism 2/2 CKD -Vit D at goal on most recent lab, PTH 67 at goal -PO4 2.2 improved, was 1.8 continue good nutrition and foods with healthy phosphorus, lean meats, milk and cheese - k 3.7 counselled to eat foods high in k to keep level at goal while on chlorthalidone. Will recheck in few months. #Anemia hgb 15.5 at goal #Acid base bicarb 28 no indication for supplementation #refill for sildenafil will cc pcp dr. Wright to note to refill medication please also refill aspirin, thank you Disposition: RTC in 6-9 months /hadley/ DASIA CALVILLO-BC NURSE PRACTITIONER Signed: 06/08/2024 12:44 RAMAN DOMÍNGUEZ [facility]
--- OUTSIDE RECORDS SUMMARY | 2024-11-01 09:48 | XMS_ITS | Encounter Summary ---
Author Name [facility] ([place]) Address [address] [place] [address] Care Team Providers Care Degreasing Wheel Operator Name Role Phone CAT WRIGHT Primary Care Provider Unavailab le Selected Encounter This section includes the information on record at [place] for the Encounter. Date/Time Encounter Type Encounter Description Reason Provider Source Nov 15, 2023 10:30 AM OFFICE O/P EST HI 40 MIN CARDIOLOGY ICD-10-CM I50.32 Chronic diastolic (congestive) heart failure KATHRYN HOLLINS Melodie Encounter Template Text not used by [place] Assessments - Encounter Diagnoses This section includes the primary and secondary diagnoses documented for the Encounter. Date/Time Primary/Secondary Diagnosis Diagnosis Name Provider Source Nov 17, 2023 10:18 PM PRIMARY Chronic diastolic (congestive) heart failure KATHRYN HOLLINS [facility] Nov 17, 2023 10:18 PM SECONDARY Chronic kidney disease, stage 3a KATHRYN HOLLINS [facility] Nov 17, 2023 10:18 PM SECONDARY Essential (primary) hypertension [facility] Nov 17, 2023 10:18 PM SECONDARY Hypertensive chronic kidney disease w stg 1-4/unsp chr kdny [facility] Nov 17, 2023 10:18 PM SECONDARY Sleep apnea, unspecified GUNJANKATHRYN [facility] Plan of Treatment: Future Appointments (+ 6 months) and Future Tests (+/- 45 days) The Plan of Treatment section includes future care activities for the patient [facility]. This section includes future appointments and future orders which are active, pending or scheduled. Future Appointments This section includes appointments that were scheduled to occur 6 months from the date of the Encounter, up to a maximum of 20 appointments. The data comes from all [facility]. Appointment Date/Time Appointment Type Appointme nt Facility Name Apr 02, 2024 11:40 AM AMBULATORY - MEDICINE [facility] Vital Signs: All taken on the encounter date This section contains inpatient and outpatient Vital Signs collected on the date of the Encounter. Date/Time Temperature Pulse Blood Pressure Respiratory Rate SP02 Pain Height Weight Body Mass Index Source Nov 15, 2023 10:30 AM 98.3 101 123/82 16 96 6 209.2 30 [facility] Advance Directives: All historical and current Section Date Range: From patient's date of to the date document was created. This section includes ALL of a patient's completed or amended [place] Advance and Rescinded Directives. The entries below indicate that a directive exists for the patient, but an actual copy is not included with this document. The data comes from all [facility]. Date Advance Directives Provider Source Aug 29, 2015 ADVANCE DIRECTIVE DISCUSSION KATARINA ERNST NP [place], [facility] Encounter Notes: All associated encounter notes This section contains the clinical notes associated to the Encounter. Date/Time Encounter Note(s) Provider Source Nov 15, 2023 10:40 AM CARDIOLOGY OUTPATI ENT NOTE: LOCAL TITLE: CARDIOLOGY OUTPATIENT FOLLOW UP [facility] STANDARD TITLE: CARDIOLOGY OUTPATIENT NOTE DATE OF NOTE: NOV 15, 2023@10:40 ENTRY DATE: NOV 15, 2023@10:40:05 AUTHOR: KATHRYN HOLLINS COSIGNER: URGENCY: STATUS: COMPLETED [facility] ADVANCED HEART FAILURE SERVICE: FOLLOW-UP VISIT NOTE PRINCIPAL AND SECONDARY DIAGNOSES: 1. HFpEF 2. HTH 3. CKD 4. obesity CARE TEAM: 1. Renal INTERVAL HISTORY: 43 year-old MALE with HFpEF by OSH Echo and proBNP on 02/01, HTN, ARNALDO, CKD Cr ~1.8, mediastinal LAD by OSH CT on 02/01 who presents for follow up. Pt presented to OSH in 02/01 with LANG and LE edema. He was found to have trop and preBNP elevation. CT PE protocol was negative for PE (had mediastinal LAD) and no DVTs in LE. Echo on 02/01 showed LVEF of 50-55%, grade II DD, normal RV size/systolic function, no HD sig valvular disease. Pt states that he had not been taking any BP meds since diagnosis of HTN in 2007 due to getting ED when taking them and his SBPs would run 190-200 at home at all times. He states that since leaving the hospital he feels better able to walk indefinately without any MYRICK, CP, LH, palp. He denies any orthopnea, PND or LE edema. He has been taking his medications as Rx'ed. He has been using his CPAP nightly. He saw dietary yesturday. 11/15/23: Today he states he is feeling fine. Denies recent MYRICK. able to walk indefinately without any MYRICK, CP, LH, palp. He denies any orthopnea, PND or LE edema. Uses CPAP nightly. He has been compliant on his medications and reports blood pressure is now well controlled at home. Of note, a 12 point REVIEW OF SYSTEMS was performed; all other review of systems negative, except as listed in the interval history. CURRENT OUTPATIENT MEDICATIONS: Active Outpatient Medications (including Supplies): Active Outpatient Medications Status 1) AMLODIPINE BESYLATE 10MG TAB TAKE ONE TABLET BY MOUTH HOLD ONCE A DAY 2) ASPIRIN 81MG EC TAB TAKE ONE TABLET BY MOUTH ONCE A ACTIVE DAY FOR CARDIOVASCULAR DISEASE TAKE WITH FOOD. 3) CHLORTHALIDONE 25MG TAB TAKE ONE-HALF TABLET BY MOUTH ACTIVE ONCE A DAY FOR HIGH BLOOD PRESSURE 4) EMPAGLIFLOZIN 25MG TAB TAKE ONE-HALF TABLET BY MOUTH ACTIVE ONCE A DAY FOR HEART FAILURE 5) LOSARTAN 100MG TAB TAKE ONE-HALF TABLET BY MOUTH ONCE ACTIVE A DAY FOR HIGH BLOOD PRESSURE 6) SILDENAFIL CITRATE 100MG TAB TAKE ONE TABLET BY MOUTH ACTIVE ONE HOUR PRIOR TO SEXUAL ACTIVITY FOR ERECTILE DYSFUNCTION NEEDED - LIMIT 6 DOSES PER 30 DAYS - All cardiac medications were reconciled during the visit. ASA 81 Losartan 50 Empagliflozin Chlorthalidone Lasix 40 daily? PHYSICAL EXAM: Temperature: 98.3 F [36.8 C] (11/15/2023 10:30) BP: 123/82 (11/15/2023 10:30) Pulse: 101 (11/15/2023 10:30) Resp: 16 (11/15/2023 10:30) Weight:209.2 lb [94.89 kg] (11/15/2023 10:30) BMI: 30.1 GENERAL: Sclera anicteric, PERRLA, MMM NECK: Carotids were brisk without bruits. CHEST/LUNGS: Clear to auscultation bilaterally with no rales or wheezes. Good respiratory effort and excursion. HEART: S1 S2, RRRR, no JVP ABDOMEN: Soft, nontender, BS positive x 4 quadrants EXTREMITIES: No lower extremity edema. NEUROLOGICAL: Alert and oriented x 3. Normal motor strength. PSYCHIATRIC: Mood and affect appropriate DIAGNOSTIC DATA: ###. ECHOCARDIOGRAM: -The echocardiogram was personally reviewed, with findings of: ###. ECG: -The ECG was personally reviewed, with findings of: ###. CARDIAC CATH: ###. ICD: ###. Current NYHA Class: ###. LABORATORIES: COMPREHENSIVE METABOLIC PANEL SODIUM 139 mEq/L 07/21/2023 10:13 POTASSIUM 4.0 mEq/L 07/21/2023 10:13 CHLORIDE 102 mEq/L 07/21/2023 10:13 UREA NITROGEN 17.1 mg/dL 07/21/2023 10:13 CREATININE 1.78 H mg/dL 07/21/2023 10:13 CALCIUM 9.9 mg/dL 07/21/2023 10:13 PROTEIN 7.3 g/dL 01/07/2023 08:27 ALBUMIN 5.1 H g/dL 07/21/2023 10:13 ALKALINE PHOSPHATASE 69 U/L 01/07/2023 08:27 ALT/SGPT 17 U/L 01/07/2023 08:27 AST/SGOT 16 U/L 01/07/2023 08:27 TOTAL BILIRUBIN 0.5 mg/dL 01/07/2023 08:27 CARBON DIOXIDE 31 mEq/L 07/21/2023 10:13 GLUCOSE 80 mg/dL 07/21/2023 10:13 EGFR (CKD-EPI 2020) 48.2 07/21/2023 10:13 COMPLETE BLOOD COUNT WBC 5.6 10*3/uL 03/18/2023 10:59 RBC 4.43 10*6/uL 03/18/2023 10:59 HGB 13.4 g/dL 03/18/2023 10:59 HCT 38.9 % 03/18/2023 10:59 MCV 87.8 fL 03/18/2023 10:59 MCH 30.2 pg 03/18/2023 10:59 MCHC 34.4 g/dL 03/18/2023 10:59 RDW 12.3 % 03/18/2023 10:59 PLT 207 10*3/uL 03/18/2023 10:59 MPV 9.7 fL 03/18/2023 10:59 NEUTROPHILS, AUTO % 69 % 03/18/2023 10:59 LYMPHOCYTES, AUTO % 15 % 03/18/2023 10:59 MONOCYTES, AUTO % 11 % 03/18/2023 10:59 EOSINOPHILS, AUTO % 4 % 03/18/2023 10:59 BASOPHILS, AUTO % 1 % 03/18/2023 10:59 NEUTROPHILS, ABSOLUTE 3.91 10*3/uL 03/18/2023 10:59 LYMPHOCYTES, ABSOLUTE 0.86 10*3/uL 03/18/2023 10:59 MONOCYTES, ABSOLUTE 0.61 10*3/uL 03/18/2023 10:59 EOSINOPHILS, ABSOLUTE 0.22 10*3/uL 03/18/2023 10:59 BASOPHILS, ABSOLUTE 0.03 10*3/uL 03/18/2023 10:59 COAGULATION STUDIES No INR EO data found No PTT EO data found HGA1C: HGA1C 5.2 % 01/07/2023 08:27 LIPIDS TRIGLYCERIDE 57 mg/dL 01/07/2023 08:27 CHOLESTEROL 143 mg/dL 01/07/2023 08:27 HDL(New) 41 mg/dL 01/07/2023 08:27 CALCULATED LDL 91 mg/dL 01/07/2023 08:27 CARDIAC BIOMARKERS BNP: No BRAIN NATRIURETIC PEPTIDE data found Trop: The OBJECT TROPONIN I EO was NOT found...Contact IRM. IRON STUDIES FERRITIN: No FERRITIN EO data found TSAT: The OBJECT TRANSFERRIN EO was NOT found...Contact IRM. ASSESSMENT AND PLAN: PLAN: A/P: # HFpEF by OSH Echo and proBNP on 02/01: Etiology most likely from uncontrolled HTN. Currently NYHA I symtoms and euvolimic on exam # HTN # ARNALDO # CKD Cr ~1.8 # mediastinal LAD by OSH CT on 02/01 # nicotine use - cont with medical management ~ ASA 81 mg daily ~ lasix 40 mg daily ~ losartan 50 mg daily ~ empagliflozin 12.5 mg daily ~ Chlorthalidone 12.5 daily - strongly recommended to quit nicotine use - exercise - recommended nightly CPAP use Follow up: 6 mo at or sooner as needed Spent 43 min reviewing records/labs/obtaining history/examining patient/ordering labs, tests, medications/discussing results and plan with patient and outside provider. All patients are counseled on the risks of smoking at every visit including patients with no history of smoking in order to dissuade them from starting the use of tobacco products; former smokers to minimize recidivism of nicotine dependence; and current smokers in an effort to help them cease the use of nicotine products. Where relevant [age between 50-60-years and history of smoking], we and/or the PCP will obtain an abdominal ultrasound to screen for the possibility of an abdominal aortic aneurysm and ABIs to screen for occult PAD. When completed, the results will be found in [facility]. # HEALTH PROMOTION/HEALTH MAINTENANCE & EDUCATION [...] 40% are considered for beta blockers and aspirin contraindicated due to intolerance/allergy, hypotension, bradycardia, or [...] hesitate to call with any questions or concerns. Life Sustaining Treatment Orders /es/ KATHRYN HOLLINS NP Signed: 11/17/2023 22:[address] [facility]
--- OUTSIDE RECORDS SUMMARY | 2024-11-01 09:48 | XMS_ITS | Referral Summary ---
Author Organization [facility] Address [address] [place] [address] Care Team Providers Care Proof Load Mechanic Name Role Phone Unknown, Notinfile Primary Care Provider Unavail able Allergies No known active allergies Medications aspirin 81 mg enteric coated tabletIndications :Myocardial Reinfarction Prevention Take 1 tablet (81 mg total) by mouth every morning 3 Active empagliflozin (JARDIANCE) 25 mg tabletIndications :Heart Failure Take 0.5 tablets (12.5 mg total) by mouth every morning 3 Active losartan (COZAAR) 100 mg tabletIndications :hypertension Take 0.5 tablets (50 mg total) by mouth every morning 3 Active chlorthalidone (HYGROTON) 25 mg tabletIndications :hypertension Take 0.5 tablets (12.5 mg total) by mouth every morning 3 Active oxyCODONE (ROXICODONE) 5 mg immediate release tabletIndications :Pain TAKE ONE TO TWO TABLETS EVERY 4 TO 6 HOURS PRN PAIN 40 tablet 4 Active Active Problems Problem Noted Date Diagnosed Date Bicipital tendinitis of right shoulder 4 Complete tear of right rotator cuff 12/15/2023 Traumatic complete tear of left rotator cuff Social History Tobacco Use Types Packs/Day Years Used Date Smoking Tobacco: Former Cigarettes 1.5 24.8 1 998 - 07/13/2022 Smokeless Tobacco: Never Tobacco Cessation:Counseling Given: Not Answered AUDIT-C Answer Date Recorded Q1: How often do you have a drink containing alc ohol? Monthly or less 12/15/2023 Q2: How many drinks containi ng alcohol do you have on a typical day when you are drinking? 1 or 2 12/15/2023 Q3: How often do you have si x or more drinks on one occasion? Never 12/15/2023 Personal Safety Answer Date Recorded Have you ever been in or are you currently in a harmful physical or emotional relationship or is someone making you feel afraid or unsafe? Denies 12/19/2023 Sex and Gender Information Value Date Recorded Sex Assigned at Not on file Legal Sex Male 1:19 PM CDT Gender Identity Not on file Sexual Orientation Not on file Last Filed Vital Signs Vital Sign Reading Time Taken Comments Blood Pressure 130/86 12/19/2023 11:40 AM CDT Pulse 75 12/19/2023 11:50 AM CDT Temperature 36.4 C (97.5 F) 12/19/2023 11:50 AM CDT Respiratory Rate 16 12/19/2023 11:50 AM CDT Oxygen Saturation 93% 12/19/2023 11:50 AM CDT Inhaled Oxygen Concentration - - Weight 97.6 kg (215 lb 3.2 oz) 12/19/2023 8:00 A M CDT Height 177.8 cm (5' 10 ) 12/19/2023 8:00 AM CDT Body Mass Index 30.88 12/19/2023 8:00 AM CDT Plan of Treatment Not on file Medical Devices Implanted Type Area Baggage Checker Device Identifier Shelf Expiration Date Model / Serial / Lot [employer] Corkscrew Suturetape 5.5mm 14.7mm Bioabsorbable Full Thread 1.3mm Ar-1927bct - [id number] Implanted:Qty: 1 on 08/15/2023 by Derek Becerril MD at [facility] [place] Left: Shoulder [employer] 06/11/2025 AR-1927BCT / / [id number] [employer] Ar-2324 Bcm Swivelock 4.75mm 24.5mm Self Punch Vent Shoulder [place] Suture - [id number] Implanted:Qty: 1 on 08/15/2023 by Derek Becerril MD at [facility] [place] Left: Shoulder [employer] 04/11/2027 AR-2324BCM / / [id number] [employer] Ar-2324 Bcm Swivelock 4.75mm 24.5mm Self Punch Vent Shoulder [place] Suture - [id number] Implanted:Qty: 1 on 08/15/2023 by Derek Becerril MD at [facility] [place] Left: Shoulder [employer] 04/11/2027 AR-2324BCM / / [id number] [employer] Corkscrew Suturetape 5.5mm 14.7mm Bioabsorbable Full Thread 1.3mm Ar-1927bct - [id number] Implanted:Qty: 1 on 12/19/2023 by Derek Becerril MD at [facility] [employer] 09/11/2025 AR-192 7BCT / / [id number] [employer] Ar-2324 Bcm Swivelock 4.75mm 24.5mm Self Punch Vent Shoulder [place] Suture - [id number] Implanted:Qty: 1 on 12/19/2023 by Derek Becerril MD at [facility] [place] Right: Shoulder [employer] 06/11/2027 AR-2324BCM / / [id number] [employer] Ar-2324 Bcm Swivelock 4.75mm 24.5mm Self Punch Vent Shoulder [place] Suture - [id number] Implanted:Qty: 1 on 12/19/2023 by Derek Becerril MD at [facility] [place] Right: Shoulder [employer] 06/11/2027 AR-2324BCM / / [id number] [employer] Board Certified Orthodontist Large Eyelet Pectoralis Button Fixation Latex Free Ar-2267 - [id number] Implanted:Qty: 1 on 12/19/2023 by Derek Becerril MD at [facility] [place] Right: Shoulder [employer] 09/11/2028 AR-2267 / / [id number] Insurance [facility] Care Teams Proof Load Mechanic Relationship Specialty Start Date End Date Unknown, Notinfile PCP - General 06/29/23
--- OUTSIDE RECORDS SUMMARY | 2024-11-01 09:48 | XMS_ITS | Encounter Summary ---
Author Name [facility] [place] [facility] Address [address] [place] [address] Care Team Providers Care Automatic Equipment Technician Name Role Phone CAT WRIGHT Primary Care Provider Unavailab le Selected Encounter This section includes the information on record at [place] for the Encounter. Date/Time Encounter Type Encounter Description Reason Pro vider Source IHE Encounter Template Text not used by [place] Advance Directives: All historical and current Section Date Range: From patient's date of to the date document was created. This section includes ALL of a patient's completed or amended [place] Advance and Rescinded Directives. The entries below indicate that a directive exists for the patient, but an actual copy is not included with this document. The data comes from all [place] facilities. Date Advance Directives Provider Source Aug 29, 2015 ADVANCE DIRECTIVE DISCUSSION KATARINA ERNST NP [facility]
--- OUTSIDE RECORDS SUMMARY | 2024-11-01 09:48 | XMS_ITS | Encounter Summary ---
Author Name [facility] [facility] [place] Address [address] [place] [address] Care Team Providers Care Breaker Engineer Name Role Phone CAT WRIGHT Primary Care Provider Unavailab le Selected Encounter This section includes the information on record at [place] for the Encounter. Date/Time Encounter Type Encounter Description Reason Pro vider Source IHE Encounter Template Text not used by [place] Advance Directives: All historical and current Section Date Range: From patient's date of to the date document was created. This section includes ALL of a patient's completed or amended [place] Advance and Rescinded Directives. The entries below indicate that a directive exists for the patient, but an actual copy is not included with this document. The data comes from all [place] facilities. Date Advance Directives Provider Source Aug 29, 2015 ADVANCE DIRECTIVE DISCUSSION KATARINA ERNST NP [facility]
--- OUTSIDE RECORDS SUMMARY | 2024-11-01 09:48 | XMS_ITS | Clinical Summary ---
Author Organization [facility] Address [address] [place] [id number] Care Team Providers Care Network Security Consultant Name Role Phone Unavailable Primary Care Provider Unavailabl e Social History Tobacco Use Types Packs/Day Years Used Date Smoking Tobacco: Never Assessed Sex and Gender Information Value Date Recorded Sex Assigned at Not on file Legal Sex Male 6:39 PM CDT Gender Identity Not on file Sexual Orientation Not on file Plan of Treatment Health Maintenance Due Date Last Done Comments Annual Physical 02/13/1984 Hepatitis C 1999 DTaP, Tdap and Td Vaccines ( 1 - Tdap) 02/13/2000 Hepatitis B Vaccines (1 of 3 - 19+ 3-dose series) 02/13/2000 COVID-19 Vaccine (2023-2 5 season) 2024 Influenza Adult (#1) 2024 HPV Vaccines Aged Out No longer eligi ble based on patient's age to complete this topic Meningococcal B Vaccine Aged Out No l onger eligible based on patient's age to complete this topic Meningococcal Vaccine Aged Out No rosy fabiano eligible based on patient's age to complete this topic Pneumococcal Vaccine: Pediat rics (0 to 5 Years) and At-Risk Patients (6 to 64 Years) Aged Out No longer eligible b ased on patient's age to complete this topic RSV Immunizations Under 20 Months Aged Out No longer eligible based on patient's age to complete this topic
--- OUTSIDE RECORDS SUMMARY | 2024-11-01 09:48 | XMS_ITS | Clinical Summary ---
Author Organization [facility] Address [address] [place] [address] Care Team Providers Care Psychologist Military Personnel Name Role Phone Unknown, Notinfile Primary Care [...] Traumatic complete tear of left rotator cuff Surgical History Surgery Date Site/Laterality Comments TONSILLECTOMY childhood ARTHROSCOPIC REPAIR ACL 09/12/2007 - 09/11/2008 Left ROTATOR CUFF REPAIR 08/15/2023 Left Medical History Medical History Date Comments Sleep apnea CPAP CHF (congestive heart failure) (CMS/HCC) (HCC) HTN (hypertension) OR, old 01/2023 Social History Tobacco Use Types Packs/Day Years [...] on file Sexual Orientation Not on file Obstetrics History Last Filed Vital Signs Vital Sign Reading [...] 12/19/2023 8:00 AM CDT Plan of Treatment Health Maintenance Due Date Last Done Comments Depression Screening 1981 Hepatitis C Screening 1981 Regular Well Visit/Exam 18-64 1999 Varicella Vaccines (1 of 2 - 13+ 2-dose series) 07/11/2012 Covid-19 Vaccine ( - season) 2024 01/24/2021 Influenza Vaccine (#1) 2024 8, 07/13/2017, 05/13/2015, Additional history exists DTaP/Tdap/Td Vaccine (3 - Td or Tdap) 02/17/2031 02/17/2021, 12/29/2011, 09/26/2003 Hepatitis B Screening Completed 03/01/2007 , 01/27/2005, 09/26/2003 Pneumococcal vaccine <65 Aged Out 08/29/2015 No longer eligible based on patient's age to complete this topic HPV Vaccines Aged Out No longer eligi ble based on patient's age to complete this topic Medical Devices Implanted Type Area Water Service Dispatcher Device Identifier Shelf Expiration Date Model / Serial / Lot [employer] Corkscrew Suturetape 5.5mm 14.7mm Bioabsorbable Full Thread 1.3mm Ar-1927bct - [id number] Implanted:Qty: 1 on 08/15/2023 by Derek Becerril MD at [facility] [place] Left: Shoulder [employer] 06/11/2025 AR-1927BCT / / [id number] [employer] Ar-2324 Bcm Swivelock 4.75mm 24.5mm Self Punch Vent Shoulder [place] Suture - [id number] Implanted:Qty: 1 on 08/15/2023 by Derek Becerril MD at [facility] Left: Shoulder [employer] 04/11/2027 AR-2324BCM / / [id number] [employer] Ar-2324 Bcm Swivelock 4.75mm 24.5mm Self Punch Vent Shoulder [place] Suture - [id number] Implanted:Qty: 1 on 08/15/2023 by Derek Becerril MD at [facility] [place] Left: Shoulder [employer] 04/11/2027 AR-2324BCM / / [id number] [employer] Corkscrew Suturetape 5.5mm 14.7mm Bioabsorbable Full Thread 1.3mm Ar-1927bct - [id number] Implanted:Qty: 1 on 12/19/2023 by Derek Becerril MD at [facility] [employer] 09/11/2025 AR-192 7BCT / / [id number] [employer] Ar-2324 Bcm Swivelock 4.75mm 24.5mm Self Punch Vent Shoulder [place] Suture - [id number] Implanted:Qty: 1 on 12/19/2023 by Derek Becerril MD at [facility] [place] Right: Shoulder [employer] 06/11/2027 AR-2324BCM / / [id number] [employer] Ar-2324 Bcm Swivelock 4.75mm 24.5mm Self Punch Vent Shoulder [place] Suture - [id number] Implanted:Qty: 1 on 12/19/2023 by Derek Becerril MD at [facility] [place] Right: Shoulder [employer] 06/11/2027 AR-2324BCM / / [id number] Ar[employer] Inc Religious Healer Large Eyelet Pectoralis Button Fixation Latex Free Ar-2267 - [id number] Implanted:Qty: 1 on 12/19/2023 by Derek Becerril MD at [facility] [place] Right: Shoulder [employer] 09/11/2028 AR-2267 / / [id number] Insurance [facility] Care Teams Psychologist Military Personnel Relationship Specialty Start Date End Date Unknown, Notinfile PCP - General 06/29/23
[2024-11-01 09:56] VITALS: BP 184/115; PULSE 103; RESP 18; TEMP 36.2; O2SAT 95
--- NOTE | 2024-11-01 10:13 | ED.URI ---
HPI - URI/Sore Throat General Chief Complaint: Upper Respiratory Infection Stated Complaint: uri Time Seen by Provider: 11/01/24 09:51 Source: patient Mode of arrival: ambulatory Limitations: no limitations History of Present Illness HPI Narrative: This is a 44-year-old male that presents to the emergency department for cold symptoms. Present since last night. Reports fever, cough, congestion, runny nose. Reports similar symptoms in his child. Related Data Home Medications ?Medication ?Instructions ?Recorded ?Confirmed ?Last Taken ?Type empagliflozin 10 mg tablet 10 mg PO DAILY 05/05/23 08/06/24 Unknown History Allergies Allergy/AdvReac Type Severity Reaction Status Date / Time No Known Allergies Allergy Verified 11/01/24 10:03 Review of Systems Review of Systems: CONSTITUTIONAL: Reports fever ENT: Reports rhinorrhea, congestion RESPIRATORY: Reports cough. Denies dyspnea. All systems reviewed & are unremarkable except as noted in HPI and below PMFSH Past Medical History Medical History COPD (chronic obstructive pulmonary disease) Hypertension Hypertension Left rotator cuff tear Surgical History Surgical History History of orthopedic surgery Left ACL History of tonsillectomy Family History Family History Father Diabetes mellitus Hypertension Mother Chronic obstructive pulmonary disease Hypertension Social History Social History Smoking packs per day: 1 Smoking cigarettes per day: 20.0 Years smoked: 22 Smoking pack-years: 22.00 Smoking status: Former smoker Tobacco type: cigarettes Smoking end date: 07/13/22 Alcohol intake: current Alcohol use details: occasionally Substance use: never Substance use type: does not use Lack of Transportation: No Lack of Food: Never True Current Housing: I Have Housing Concerned About Future Housing: No Difficulty Paying Gas/Electric Bills: No Difficulty Paying for Meds: No Currently Unemployed: No Education: Trade/Vocational Certificate Difficulty w/ Childcare or Family Care: No Living arrangements: with family Occupation/Education: occupation 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 HEAD: Normocephalic, atraumatic. EYES: EOMI. ENT: Nares clear, no rhinorrhea or epistaxis. Mucous membranes moist. Oropharynx without tonsillar hypertrophy exudate or other lesions. Bilateral TMs pearly gonzalez non-bulging NECK: Supple. No adenopathy or masses. CHEST: Clear to auscultation. No respiratory distress. No wheezes rales or rhonchi HEART: Regular rate and rhythm. No murmur heard. Normal peripheral pulses. EXTREMITIES: Normal range of motion. No edema. SKIN: Warm, dry, no rash. NEURO: No focal deficits. Alert and oriented x3. PSYCH: Normal mood and affect Course Course Emergency Course: Patient updated on his workup and agrees with plan of care Vital Signs Vital signs: Vital Signs Temperature 98.3 F 11/01/24 09:45 Pulse Rate 97 11/01/24 09:45 Respiratory Rate 20 11/01/24 09:45 Blood Pressure 164/92 H 11/01/24 09:45 Pulse Oximetry 97 11/01/24 09:45 Oxygen Delivery Room Air 11/01/24 09:45 Temperature 97.2 F L 11/01/24 09:56 Pulse Rate 103 H 11/01/24 09:56 Respiratory Rate 18 11/01/24 09:56 Blood Pressure 184/115 H 11/01/24 09:56 Pulse Oximetry 95 11/01/24 09:56 Oxygen Delivery Room Air 11/01/24 10:03 MDM - URI/Sore Throat MDM Narrative Medical decision making narrative: This is a 44 year old male that presents to the ER for cold symptoms present since yesterday. Patient is afebrile and nontoxic appearing. Lungs are clear on exam. Oxygen saturation is normal on room air. Patient is influenza A positive. Chest x-ray without acute cardiopulmonary abnormality. Patient updated on his workup and agrees with plan of care. Instructed on further care a viral infection. Will be started on Tamiflu. He is to follow up with primary provider. He was given warnings to return to the ER Differential Diagnosis Differential diagnosis: Likely upper respiratory infection, viral infection, bronchitis, influenza and other (covid) Lab Data Attestation: I reviewed the patient's lab results. Labs: Lab Results 11/01/24 Range/Units 10:08 Influenza A (RT-PCR) Positive A (Negative) Influenza B (RT-PCR) Negative (Negative) RSV (RT-PCR) Negative (Negative) SARS-CoV-2 RNA (RT-PCR) Negative (Negative) Imaging Data Radiologist's impression: ITS Impressions Chest X-Ray 11/01/24 11:00 Impression: Normal chest. Critical Care Time Critical Care Time Critical Care Time: No Discharge Plan Discharge Clinical Impression: Influenza A Patient Disposition: Home, Self-Care Condition: Stable Instructions: Influenza (ED) Additional Instructions: Return to the emergency department for worsening symptoms, or any other concerns Remain well-hydrated, get plenty of rest. Take Tylenol or Motrin gpmc-[id number]-sunpbcp for pain as needed. Flonase for nasal congestion. Zyrtec for runny nose. Lozenges or Chloraseptic spray for sore throat. Take Tamiflu as prescribed Follow up with primary care doctor Patient Language: Northern Irish Prescriptions: New oseltamivir [Tamiflu] 75 mg capsule 75 mg PO Q12H 5 Days Qty: 10 0RF No Action prednisone 20 mg tablet See Rx Instructions .ROUTE .COMPLEX Qty: 9 0RF Rx Instructions: Take 40 mg daily for 3 days, 20 mg daily for 3 days doxycycline monohydrate 100 mg tablet 100 mg PO BID Qty: 14 0RF albuterol sulfate 90 mcg/actuation HFA aerosol inhaler 2 puff inhalation QID PRN (Reason: shortness of breath or wheezing) Qty: 6.7 0RF (DME) Aerochamber MV Spacer See Rx Instructions .Route Qty: 1 0RF Rx Instructions: As directed empagliflozin 10 mg tablet 10 mg PO DAILY losartan [Cozaar] 50 mg Tablet 50 mg PO DAILY 30 Days Qty: 30 0RF aspirin [Children's Aspirin] 81 mg Tablet,Chewable 81 mg PO DAILY@0800 30 Days Qty: 30 0RF furosemide 40 mg tablet 40 mg PO DAILY Qty: 30 0RF Follow-up/Referrals: [facility] [Primary Care Provider] -
[2024-11-01 10:49] LABS: Influenza A QL RT-PCR Positive (Negative); Influenza B QL RT-PCR Negative (Negative); RSV RNA, RT-PCR Negative (Negative); SARS-CoV-2 RNA PCR Negative (Negative)
[2024-11-01] MEDS: ACETAMINOPHEN 500 MG TABLET 1000 MG PO (10:59)
--- OUTSIDE RECORDS SUMMARY | 2024-11-01 11:13 | XMS_ITS | Clinical Summary ---
Author Organization [facility] Address [address] [place] [address] Care Team Providers Care Shuttle Driver Name Role Phone Unavailable Primary Care Provider [...] 19+ 3-dose series) 02/13/2000 03/01/2007, 01/27/2005, 09/26/2003 INFLUENZA VACCINE (#1) 2024 8, 06/19/2014, 06/18/2014, Additional history exists DTAP/TDAP/TD VACCINES (3 - Td or Tdap) 02/17/2031 02/17/2021, 12/29/2011 HPV VACCINES Aged Out No longer eligi ble based on patient's age to complete this topic Insurance [employer]
--- OUTSIDE RECORDS SUMMARY | 2024-11-01 11:13 | XMS_ITS | Clinical Summary ---
Author Organization [facility] Address [address] [place] [id number] Care Team Providers Care Tabular Typist Name Role Phone Unavailable Primary Care Provider [...]
--- OUTSIDE RECORDS SUMMARY | 2024-11-01 11:13 | XMS_ITS | Clinical Summary ---
Author Organization [facility] Address [address] [place] [address] Care Team Providers Care Traveling Construction Superintendent Name Role Phone Unknown, Notinfile Primary Care [...] (congestive heart failure) (CMS/HCC) (HCC) HT[place] ([place]ension) [place], old 01/2023 Social History Tobacco Use Types [...] this topic Medical Devices Implanted Type Area Refrigerating Oiler Device Identifier Shelf Expiration Date Model / Serial / Lot [employer] Corkscrew Suturetape 5.5mm 14.7mm Bioabsorbable Full Thread 1.3mm Ar-1927bct - [id number] Implanted:Qty: 1 on 08/15/2023 by Derek Becerril MD at [facility] [place] Left: Shoulder [employer] 06/11/2025 AR-1927BCT / / [id number] [employer] Ar-2324 Bcm Swivelock 4.75mm 24.5mm Self Punch Vent Shoulder [place] Suture - [id number] Implanted:Qty: 1 on 08/15/2023 by Derek Becerril MD at [facility] Left: Shoulder [employer] 04/11/2027 AR-2324BCM / / [id number] [employer] Ar-2324 Bcm Swivelock 4.75mm 24.5mm Self Punch Vent Shoulder [place] Suture - [id number] Implanted:Qty: 1 on 08/15/2023 by Derek Becerril MD at [facility] [place] Left: Shoulder [employer] 04/11/2027 AR-2324BCM / / [id number] [employer] Corkscrew Suturetape 5.5mm 14.7mm Bioabsorbable Full Thread 1.3mm Ar-1927bct - [id number] Implanted:Qty: 1 on 12/19/2023 by Derek Becerril MD at [facility] [employer] 09/11/2025 AR-192 7BCT / / [id number] [employer] Ar-2324 Bcm Swivelock 4.75mm 24.5mm Self Punch Vent Shoulder [place] Suture - [id number] Implanted:Qty: 1 on 12/19/2023 by Derek Becerril MD at [facility] [place] Right: Shoulder [employer] 06/11/2027 AR-2324BCM / / [id number] [employer] Ar-2324 Bcm Swivelock 4.75mm 24.5mm Self Punch Vent Shoulder [place] Suture - [id number] Implanted:Qty: 1 on 12/19/2023 by Derek Becerril MD at [facility] [place] Right: Shoulder [employer] 06/11/2027 AR-2324BCM / / [id number] [employer] Shot Packer Large Eyelet Pectoralis Button Fixation Latex Free Ar-2267 - [id number] Implanted:Qty: 1 on 12/19/2023 by Derek Becerril MD at [facility] [place] Right: Shoulder [employer] 09/11/2028 AR-2267 / / [id number] Insurance [facility] Care Teams Traveling Construction Superintendent Relationship Specialty Start Date End Date Unknown, Notinfile PCP - General 06/29/23
--- OUTSIDE RECORDS SUMMARY | 2024-11-01 11:13 | XMS_ITS | Continuity of Care Document ---
Author Name [facility] Organization [facility] Care Team Providers Care Senior Engineering Manager Name Role Phone [facility] Unavailable Unavailable Problems Combined list of problems from Department of Defense and Veterans Affairs facilities. It does not include entries that were removed or entered in error. Problem Status Onset Date Problem Type Date of Resolution Comments Source Back pain Active Condition [facility] Benign essential hypertension Active Condition [facility] Chronic kidney disease stage 3A Active Condition [facility] Erectile dysfunction (SNOMED CT [id number]) Active Condition [facility] Exposure to potentially hazardous substance Active Condition [facility] Pain in left knee Active Condition [facility] Sleep apnea Active Condition [facility] tendonitis shoulder Active Condition [facility] joint pain, localized in the right shoulder Inactive Condition [facility] psychiatric diagnosis or condition deferred on axis I Active Condition [facility] visit for: screening exam infectious diseases viral Inactive Condition [facility] 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 ROM/stretch ing as shown 3x daily. 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 ORAL ACTIVE 10/24/2025 [id number] Gigi WRIGHT UZAJOSSELYN 2024 120 [facility] ASPIRIN 81MG TAB,EC TAKE ONE TABLET BY MOUTH ONCE A DAY FOR CARDIOVA SCULAR DISEASE TAKE WITH FOOD. ORAL DISCONT INUED 06/19/2024 [id number] 4 LISA MCCONNELL AAKASHClovis R 2023 120 [facility] ASPIRIN 81MG TAB,EC TAKE ONE TABLET BY MOUTH ONCE A DAY FOR CARDIOVA SCULAR DISEASE TAKE WITH FOOD. ORAL DISCONT INUED 01/20/2024 [id number] AFRICA DEE 2022 120 [facility] ASPIRIN 81MG TAB,EC TAKE ONE TABLET BY MOUTH ONCE A DAY FOR CARDIOVA SCULAR DISEASE TAKE WITH FOOD. ORAL 07/08/2024 [id number] 4 RAMAN DELGADO 2023 30 [facility] CHLORTHALID ONE 25MG TAB TAKE ONE TABLET BY MOUTH ONCE A DAY FOR HIGH BLOOD PRESSURE ORAL SUSPEND ED 06/09/2025 [id number] RAMAN DELGADO 2023 90 [facility] CHLORTHALID ONE 25MG TAB TAKE ONE-HALF TABLET BY MOUTH ONCE A DAY FOR HIGH BLOOD PRESSURE ORAL DISCONT INUED (EDIT) 05/31/2025 [id number] 4 Gigi WRIGHT 2023 45 [facility] CHLORTHALID ONE 25MG TAB TAKE ONE-HALF TABLET BY MOUTH ONCE A DAY FOR HIGH BLOOD PRESSURE ORAL DISCONT INUED 07/21/2024 [id number] ANIL BALDERAS 2022 45 [facility] EMPAGLIFLOZ IN 25MG TAB TAKE ONE-HALF TABLET BY MOUTH ONCE A DAY FOR HEART FAILURE ORAL ACTIVE 10/19/2025 [id number] 5 Gigi WRIGHT 2024 45 [facility] EMPAGLIFLOZ IN 25MG TAB TAKE ONE-HALF TABLET BY MOUTH ONCE A DAY FOR HEART FAILURE ORAL DISCONT INUED 09/06/2024 [id number] 4 DENIA StephenRAMAN ROBERT 2023 45 [facility] EMPAGLIFLOZ IN 25MG TAB TAKE ONE-HALF TABLET BY MOUTH ONCE A DAY FOR HEART FAILURE ORAL DISCONT INUED 06/19/2024 [id number] 4 LISA MCCONNELL LBY R 2023 45 [facility] EMPAGLIFLOZ IN 25MG TAB TAKE ONE-HALF TABLET BY MOUTH ONCE A DAY FOR HEART FAILURE ORAL DISCONT INUED 02/23/2024 [id number] AZIZA EVANS 2022 45 [facility] [place] POTASSIUM 100MG TAB TAKE ONE-HALF TABLET BY MOUTH ONCE A DAY FOR HIGH BLOOD PRESSURE ORAL SUSPEND ED 06/09/2025 [id number] 5 RAMAN DELGADO 2023 45 [facility] [place] POTASSIUM 100MG TAB TAKE ONE-HALF TABLET BY MOUTH ONCE A DAY FOR HIGH BLOOD PRESSURE ORAL DISCONT INUED 06/19/2024 [id number] 4 LISA MCCONNELL LBY R 2023 45 [facility] [place] POTASSIUM 100MG TAB TAKE ONE-HALF TABLET BY MOUTH ONCE A DAY FOR HIGH BLOOD PRESSURE ORAL DISCONT INUED 03/29/2024 [id number] 4 AFRICA DEE 2022 45 [facility] SILDENAFIL CITRATE 100MG TAB TAKE ONE-HALF TABLET BY MOUTH ONE HOUR PRIOR TO SEXUAL ACTIVITY NEEDED - LIMIT 6 DOSES PER 30 DAYS ORAL ACTIVE 10/19/2025 [id number] 5 Gigi WRIGHT 2024 9 [facility] SILDENAFIL CITRATE 100MG TAB TAKE ONE TABLET BY MOUTH ONE HOUR PRIOR TO SEXUAL ACTIVITY FOR ERECTILE DYSFUNCT ION NEEDED - LIMIT 6 DOSES PER 30 DAYS ORAL DISCONT INUED 03/29/2024 [id number] 4 AFRICA DEE 2022 18 [facility] SILDENAFIL CITRATE 100MG TAB TAKE ONE TABLET BY MOUTH ONE HOUR PRIOR TO SEXUAL ACTIVITY FOR ERECTILE DYSFUNCT ION NEEDED - LIMIT 6 DOSES PER 30 DAYS ORAL 06/19/2024 [id number] 4 LISA MCCONNELL LBClovis R [address] [place] [address] Allergies, Adverse Reactions, Alerts Combined list of allergies from Department of [facility] and Veterans Affairs facilities. It does not include entries that were removed or entered in error. Substance Category Reaction Severity Reaction type Status Date Reported Comments Source HCTZ HYDROCHLOROTH IAZIDE Propensity to adverse reactions to drug (finding) MALE ERECTILE DISORDER active 1 [facility] LISINOPRIL Propensity to adverse reactions to drug (finding) MALE ERECTILE DISORDER active 1 [facility] No Known Allergies Drug allergy (disorder) active 1 [facility] Immunizations Combined list of available immunizations from the Department of [facility] and [facility] facilities. Immunization Series Date Given Administered By Site Reaction Lot Number CVX Code Drug Transmission Tester Status Comments Source TDAP 1 2020 115 complet ed [facility] COVID-19 (GATHER & SAVE), VECTOR-NR, [id number], PF, 0.5 ML 2 2020 212 complet ed [facility] COVID-19 ([employer]ER [employer] SAVE), VECTOR-NR, [id number], PF, 0.5 ML 1 2020 212 complet ed [facility] INFLUENZA, INJECTABLE, QUADRIVALENT, PRESERVATIVE FREE 1 2017 150 complet ed [facility] INFLUENZA, UNSPECIFIED FORMULATION 2016 88 complet ed [facility] PNEUMOCO[facility]ACCHARID E PPV23 2014 33 complet ed [facility] INFLUENZA, UNSPECIFIED FORMULATION 2014 88 complet ed [facility] Influenza, injectable, Madin [place] Canine Kidney, preservative free 1 2013 RADHA PENA [id number] [employer] [place]. (NOV) complet ed Influenza , injectabl e, Madin [place] Canine Kidney, preservat bernardo free DoD Influenza, seasonal, injectable, preservative free 1 2013 [id number] Sanofi Pasteur ([facility]) complet ed Influenza , seasonal, injectabl e, preservat bernardo free DoD anthrax vaccine 7 2013 [id number] 24 [facility] ([facility]) complet ed anthrax vaccine DoD typhoid Vi capsular polysaccharid e vaccine 5 2013 [id number] Sanofi Pasteur ([facility]) complet ed typhoid Vi capsular polysacch aride vaccine DoD Influenza, seasonal, injectable, preservative free 1 2012 [id number] [facility] [employer] ([facility]) complet ed Influenza , seasonal, injectabl e, preservat bernardo free DoD anthrax vaccine 7 2012 [id number] 24 [facility] ([facility]) complet ed anthrax vaccine DoD influenza virus vaccine, live, attenuated, for intranasal use 1 2011 [id number] [employer] ([facility]) complet ed influenza virus vaccine, live, attenuate d, for intranasa l use DoD tetanus toxoid, reduced diphtheria toxoid, and acellular pertu is vaccine, adsorbed 1 2011 [id number] 115 Unknown (UNK) comple t ed tetanus toxoid, reduced diphtheri a toxoid, and acellular pertussis vaccine, adsorbed DoD anthrax vaccine 6 2011 [id number] 24 [facility] ([facility]) complet ed anthrax vaccine DoD typhoid Vi capsular polysaccharid e vaccine 1 2011 [id number] 101 Sanofi Pasteur ([facility]) complet ed typhoid Vi capsular polysacch aride vaccine DoD influenza virus vaccine, live, attenuated, for intranasal use 1 2010 [id number] 111 Unknown (UNK) comple t ed influenza virus vaccine, live, attenuate d, for intranasa l use DoD Influenza, seasonal, injectable, preservative free 1 2010 [id number] 140 Unknown (UNK) comple t ed Influenza , seasonal, injectabl e, preservat bernardo free DoD influenza virus vaccine, split virus (incl. purified surface antigen)-reti red CODE 7 2009 [id number] 15 Sanofi Pasteur ([facility]) complet ed influenza virus vaccine, split virus (incl. purified surface antigen)- retired CODE DoD anthrax vaccine 5 2009 [id number] 24 [employer] [place] ([facility]) complet ed anthrax vaccine DoD typhoid Vi capsular polysaccharid e vaccine 1 2009 [id number] 101 Unknown (UNK) comple t ed typhoid Vi capsular polysacch aride vaccine DoD Novel Influenza-H1N 1-09, live virus for nasal administratio n 1 2009 [id number] 125 [employer] (MED) complet ed Novel Influenza -[id number], live virus for nasal administr ation DoD influenza virus vaccine, live, attenuated, for intranasal use 1 2008 [id number] 111 [employer] (MED) complet ed influenza virus vaccine, live, attenuate d, for intranasa l use DoD influenza virus vaccine, split virus (incl. purified surface antigen)-reti red CODE 1 2007 [id number] 15 Unknown (UNK) complet ed influenza virus vaccine, split virus (incl. purified surface antigen)- retired CODE DoD anthrax vaccine 4 2007 [id number] 24 [employer] [place] ([facility]) complet ed anthrax vaccine DoD anthrax vaccine 3 2007 [id number] 24 [employer] [place] ([facility]) complet ed anthrax vaccine DoD anthrax vaccine 2 2007 [id number] 24 [employer] [place] ([facility]) complet ed anthrax vaccine DoD influenza virus vaccine, split virus (incl. purified surface antigen)-reti red CODE 1 2006 UNK 15 Sanofi Paste[employer] ([facility]) complet ed influenza virus vaccine, split virus (incl. purified surface antigen)- retired CODE DoD anthrax vaccine 1 2006 UNK 24 [employer] [place] ([facility]) complet ed anthrax vaccine DoD vaccinia (smallpox) vaccine 1 2006 [id number] 75 Michelle ([facility]) complet ed vaccinia (smallpox ) vaccine DoD typhoid Vi capsular polysaccharid e vaccine 1 2006 UNK 101 Unknown (UNK) comple t ed typhoid Vi capsular polysacch aride vaccine DoD varicella virus vaccine 1 2006 UNK 21 Unknown (UNK) Not Given varicella virus vaccine DoD influenza virus vaccine, split virus (incl. purified surface antigen)-reti red CODE 1 2006 UNK 15 Sanofi Pasteur ([facility]) complet ed influenza virus vaccine, split virus (incl. purified surface antigen)- retired CODE DoD hepatitis B vaccine, adult dosage 3 2006 [id number] 43 [employer] ([facility]) complet ed hepatitis B vaccine, adult dosage DoD hepatitis A vaccine, adult dosage 2 2006 [id number] 52 [email or web address] ([facility]) complet ed hepatitis A vaccine, adult dosage DoD influenza virus vaccine, split virus (incl. purified surface antigen)-reti red CODE 1 2004 [id number] 15 Sanofi Pasteur ([facility]) complet ed influenza virus vaccine, split virus (incl. purified surface antigen)- retired CODE DoD hepatitis B vaccine, adult dosage 2 2004 [id number] 43 [employer] ([facility]) complet ed hepatitis B vaccine, adult dosage DoD hepatitis A vaccine, adult dosage 1 2004 [id number] 52 [employer] ([facility]) complet ed hepatitis A vaccine, adult dosage DoD typhoid Vi capsular polysaccharid e vaccine 1 2004 [id number] Sanofi Pasteur ([facility]) complet ed typhoid Vi capsular polysacch [...] Reference Range Date Interpretation Specimen Comments Source MICRAL/C REAT PROFILE (STL) ALBUMIN [MASS/VOLUME ] IN URINE 39.4 mg/L 06/08 Specimen Type: URINE No comment entered. Ordering Provider: DASIA DOMÍNGUEZ Report Released Date/Time: Jun 08, 2024 09:23 AM Reporting Lab: [facility] [address] [facility] [address] Performing Lab: [facility] [address] [facility] [address] [facility] MICRAL/C REAT PROFILE (STL) ALBUMIN/CREA TININE [MASS RATIO] IN URINE 48 mg/g 0 - 29 06/08 H Specimen Type: URINE No comment entered. Ordering Provider: DASIA DOMÍNGUEZ Report Released Date/Time: Jun 08, 2024 09:23 AM Reporting Lab: [facility] [address] [facility] [address] Performing Lab: [facility] [address] [facility] [address] [facility] MICRAL/C REAT PROFILE (STL) CREATININE [MASS/VOLUME ] IN URINE 82.1 mg/dL 63 - 166 06/08 Specimen Type: URINE No comment entered. Ordering Provider: DASIA DOMÍNGUEZ Report Released Date/Time: Jun 08, 2024 09:23 AM Reporting Lab: [facility] [address] [facility] [address] Performing Lab: [facility] [address] [facility] [address] [facility] PROTEIN URINE PROTEIN [MASS/VOLUME ] IN URINE 10.2 mg/dL 06/08 Specimen Type: URINE No comment entered. Ordering Provider: DASIA DOMÍNGUEZ Report Released Date/Time: Jun 08, 2024 09:23 AM Reporting Lab: [facility] [address] [place] [phone] Performing Lab: [address] [address] [facility] CBC LEUKOCYTES [#/VOLUME] IN BLOOD BY AUTOMATED COUNT 5.2 10*3/u L 3.6 - 11.2 06/08 Specimen Type: BLOOD No comment entered. Ordering Provider: DASIA DOMÍNGUEZ Report Released Date/Time: Jun 08, 2024 09:04 AM Reporting Lab: [facility] [address] [facility] [address] Performing Lab: [facility] [address] [place] [phone] [facility] CBC ERYTHROCYTES [#/VOLUME] IN BLOOD BY AUTOMATED COUNT 5.21 10*6/u L 4.10 - 5.70 06/08 Specimen Type: BLOOD No comment entered. Ordering Provider: DASIA DOMÍNGUEZ Report Released Date/Time: Jun 08, 2024 09:04 AM Reporting Lab: [facility] [address] [facility] [address] Performing Lab: [facility] [address] [place] [phone] [facility] CBC HEMOGLOBIN [MASS/VOLUME ] IN BLOOD 15.5 g/dL 13.1 - 16.8 06/08 Specimen Type: BLOOD No comment entered. Ordering Provider: DASIA DOMÍNGUEZ Report Released Date/Time: Jun 08, 2024 09:04 AM Reporting Lab: [address] [address] Performing Lab: [address] [address] [facility] CBC HEMATOCRIT [VOLUME FRACTION] OF BLOOD 45.3 38.2 - 48.4 06/08 Specimen Type: BLOOD No comment entered. Ordering Provider: DASIA DOMÍNGUEZ Report Released Date/Time: Jun 08, 2024 09:04 AM Reporting Lab: [address] [address] Performing Lab: [address] [address] [facility] CBC MCV [ENTITIC VOLUME] BY AUTOMATED COUNT 86.9 fL 80.0 - 100.0 06/08 Specimen Type: BLOOD No comment entered. Ordering Provider: DASIA DOMÍNGUEZ Report Released Date/Time: Jun 08, 2024 09:04 AM Reporting Lab: [address] [address] Performing Lab: [address] [address] [facility] CBC MCH [ENTITIC MASS] BY AUTOMATED COUNT 29.8 pg 27.0 - 34.0 06/08 Specimen Type: BLOOD No comment entered. Ordering Provider: DASIA DOMÍNUGEZ Report Released Date/Time: Jun 08, 2024 09:04 AM Reporting Lab: [address] [address] Performing Lab: [address] [address] [facility] CBC MCHC [MASS/VOLUME ] BY AUTOMATED COUNT 34.2 g/dL 33.0 - 36.0 06/08 Specimen Type: BLOOD No comment entered. Ordering Provider: DASIA DOMÍNGUEZ Report Released Date/Time: Jun 08, 2024 09:04 AM Reporting Lab: [address] [address] Performing Lab: [facility] [address] [place] [phone] [facility] CBC PLATELETS [#/VOLUME] IN BLOOD BY AUTOMATED COUNT 175 10*3/u L 150 - 400 06/08 Specimen Type: BLOOD No comment entered. Ordering Provider: DASIA DOMÍNGUEZ Report Released Date/Time: Jun 08, 2024 09:04 AM Reporting Lab: [address] [address] Performing Lab: [address] [address] [facility] CBC PLATELET MEAN VOLUME [ENTITIC VOLUME] IN BLOOD BY AUTOMATED COUNT 9.5 fL 7.5 - 11.2 06/08 Specimen Type: BLOOD No comment entered. Ordering Provider: DASIA DOMÍNGUEZ Report Released Date/Time: Jun 08, 2024 09:04 AM Reporting Lab: [address] [address] Performing Lab: [address] [address] [facility] CBC ERYTHROCYTE DISTRIBUTION WIDTH [RATIO] BY AUTOMATED COUNT 12.3 11.8 - 15.1 06/08 Specimen Type: BLOOD No comment entered. Ordering Provider: DASIA DOMÍNGUEZ Report Released Date/Time: Jun 08, 2024 09:04 AM Reporting Lab: [address] [address] Performing Lab: [address] [address] [facility] CBC LYMPHOCYTES/ 100 LEUKOCYTES IN BLOOD BY AUTOMATED COUNT 20 06/08 Specimen Type: BLOOD No comment entered. Ordering Provider: DASIA DOMÍNGUEZ Report Released Date/Time: Jun 08, 2024 09:04 AM Reporting Lab: [facility] [address] [facility] [address] Performing Lab: [facility] [address] [facility] [address] [facility] CBC MONOCYTES/10 0 LEUKOCYTES IN BLOOD BY AUTOMATED COUNT 10 06/08 Specimen Type: BLOOD No comment entered. Ordering Provider: DASIA DOMÍNGUEZ Report Released Date/Time: Jun 08, 2024 09:04 AM Reporting Lab: [facility] [address] [facility] [address] Performing Lab: [facility] [address] [facility] [address] [facility] CBC NEUTROPHILS/ 100 LEUKOCYTES IN BLOOD BY AUTOMATED COUNT 65 06/08 Specimen Type: BLOOD No comment entered. Ordering Provider: DASIA DOMÍNGUEZ Report Released Date/Time: Jun 08, 2024 09:04 AM Reporting Lab: [facility] [address] [facility] [address] Performing Lab: [facility] [address] [facility] [address] [facility] CBC EOSINOPHILS/ 100 LEUKOCYTES IN BLOOD BY AUTOMATED COUNT 4 06/08 Specimen Type: BLOOD No comment entered. Ordering Provider: DASIA DOMÍNGUEZ Report Released Date/Time: Jun 08, 2024 09:04 AM Reporting Lab: [facility] [address] [facility] [address] Performing Lab: [facility] [address] [facility] [address] [facility] CBC BASOPHILS/10 0 LEUKOCYTES IN BLOOD BY AUTOMATED COUNT 1 06/08 Specimen Type: BLOOD No comment entered. Ordering Provider: DASIA DOMÍNGUEZ Report Released Date/Time: Jun 08, 2024 09:04 AM Reporting Lab: [address] [address] Performing Lab: [address] [phone] CBC LYMPHOCYTES [#/VOLUME] IN BLOOD BY AUTOMATED COUNT 1.02 10*3/u L 0.77 - 4.50 06/08 Specimen Type: BLOOD No comment entered. Ordering Provider: DASIA DOMÍNGUEZ Report Released Date/Time: Jun 08, 2024 09:04 AM Reporting Lab: [place] [address] Performing Lab: [address] [phone] CBC MONOCYTES [#/VOLUME] IN BLOOD BY AUTOMATED COUNT 0.52 10*3/u L 0.19 - 0.80 06/08 Specimen Type: BLOOD No comment entered. Ordering Provider: DASIA DOMÍNGUEZ Report Released Date/Time: Jun 08, 2024 09:04 AM Reporting Lab: [place] [phone] Performing Lab: [address] [address] [place] [address] CBC NEUTROPHILS [#/VOLUME] IN BLOOD BY AUTOMATED COUNT 3.39 10*3/u L 2.10 - 8.00 06/08 Specimen Type: BLOOD No comment entered. Ordering Provider: DASIA DOMÍNGUEZ Report Released Date/Time: Jun 08, 2024 09:04 AM Reporting Lab: [place] [phone] Performing Lab: [address] [address] [facility] CBC EOSINOPHILS [#/VOLUME] IN BLOOD BY AUTOMATED COUNT 0.22 10*3/u L 0.00 - 0.60 06/08 Specimen Type: BLOOD No comment entered. Ordering Provider: DASIA DOMÍNGUEZ Report Released Date/Time: Jun 08, 2024 09:04 AM Reporting Lab: [facility] [address] [facility] [address] Performing Lab: [address] [address] [facility] CBC BASOPHILS [#/VOLUME] IN BLOOD BY AUTOMATED COUNT 0.03 10*3/u L 0.00 - 0.20 06/08 Specimen Type: BLOOD No comment entered. Ordering Provider: DASIA DOMÍNGUEZ Report Released Date/Time: Jun 08, 2024 09:04 AM Reporting Lab: [address] [address] Performing Lab: [address] [address] [facility] PTH, INTACT (STL) PARATHYRIN.I NTACT [MASS/VOLUME ] IN SERUM OR PLASMA 67.00 pg/mL 8.7 - 77.7 06/08 Specimen Type: SERUM No comment entered. Ordering Provider: DASIA DOMÍNGUEZ Report Released Date/Time: Jun 08, 2024 09:04 AM Reporting Lab: [address] [address] Performing Lab: [address] [address] [facility] RENAL PANEL CREATININE [MASS/VOLUME ] IN SERUM OR PLASMA 1.70 mg/dL 0.7 - 1.3 06/08 H Specimen Type: PLASMA Comment: No hemolysis noted. Ordering Provider: DASIA DOMÍNGUEZ Report Released Date/Time: Jun 08, 2024 09:04 AM Reporting Lab: [address] [address] Performing Lab: [address] [address] [facility] RENAL PANEL UREA NITROGEN [MASS/VOLUME ] IN SERUM OR PLASMA 18.4 mg/dL 9.0 - 25.0 06/08 Specimen Type: PLASMA Comment: No hemolysis noted. Ordering Provider: DASIA DOMÍNGUEZ Report Released Date/Time: Jun 08, 2024 09:04 AM Reporting Lab: [facility] [address] [facility] [address] Performing Lab: [facility] [address] [facility] [address] [facility] RENAL PANEL GLUCOSE [MASS/VOLUME ] IN SERUM OR PLASMA 90 mg/dL 72 - 99 06/08 Specimen Type: PLASMA Comment: No hemolysis noted. Ordering Provider: DASIA DOMÍNGUEZ Report Released Date/Time: Jun 08, 2024 09:04 AM Reporting Lab: [facility] [address] [facility] [address] Performing Lab: [facility] [address] [facility] [address] [facility] RENAL PANEL SODIUM [MOLES/VOLUM E] IN SERUM OR PLASMA 140 meq/L 136 - 145 06/08 Specimen Type: PLASMA Comment: No hemolysis noted. Ordering Provider: DASIA DOMÍNGUEZ Report Released Date/Time: Jun 08, 2024 09:04 AM Reporting Lab: [facility] [address] [facility] [address] Performing Lab: [facility] [address] [facility] [address] [facility] RENAL PANEL POTASSIUM [MOLES/VOLUM E] IN SERUM OR PLASMA 3.7 meq/L 3.5 - 5 06/08 Specimen Type: PLASMA Comment: No hemolysis noted. Ordering Provider: DASIA DOMÍNGUEZ Report Released Date/Time: Jun 08, 2024 09:04 AM Reporting Lab: [facility] [address] [facility] [address] Performing Lab: [facility] [address] [facility] [address] [facility] RENAL PANEL CHLORIDE [MOLES/VOLUM E] IN SERUM OR PLASMA 103 meq/L 98 - 107 06/08 Specimen Type: PLASMA Comment: No hemolysis noted. Ordering Provider: DASIA DOMÍNGUEZ Report Released Date/Time: Jun 08, 2024 09:04 AM Reporting Lab: [place] [address] [facility] [address] Performing Lab: [place] [address] [facility] [address] [facility] RENAL PANEL CARBON DIOXIDE, TOTAL [MOLES/VOLUM E] IN SERUM OR PLASMA 28 meq/L 22 - 31 06/08 Specimen Type: PLASMA Comment: No hemolysis noted. Ordering Provider: DASIA DOMÍNGUEZ Report Released Date/Time: Jun 08, 2024 09:04 AM Reporting Lab: [place] [address] [facility] [address] Performing Lab: [place] [address] [facility] [address] [facility] RENAL PANEL CALCIUM [MASS/VOLUME ] IN SERUM OR PLASMA 9.6 mg/dL 8.4 - 10.4 06/08 Specimen Type: PLASMA Comment: No hemolysis noted. Ordering Provider: DASIA DOMÍNGUEZ Report Released Date/Time: Jun 08, 2024 09:04 AM Reporting Lab: [address] [address] Performing Lab: [address] [address] [facility] RENAL PANEL PHOSPHATE [MASS/VOLUME ] IN SERUM OR PLASMA 2.2 mg/dL 2.3 - 4.7 06/08 L Specimen Type: PLASMA Comment: No hemolysis noted. Ordering Provider: DASIA DOMÍNGUEZ Report Released Date/Time: Jun 08, 2024 09:04 AM Reporting Lab: [facility] [address] [facility] [address] Performing Lab: [facility] [address] [facility] [address] [facility] RENAL PANEL ALBUMIN [MASS/VOLUME ] IN SERUM OR PLASMA 4.4 g/dL 3.4 - 5 06/08 Specimen Type: PLASMA Comment: No hemolysis noted. Ordering Provider: DASIA DOMÍNGUEZ Report Released Date/Time: Jun 08, 2024 09:04 AM Reporting Lab: [facility] [address] [facility] [address] Performing Lab: [facility] [address] [facility] [address] [facility] RENAL PANEL GLOMERULAR FILTRATION RATE/1.73 SQ M.PREDICTED [VOLUME RATE/AREA] IN SERUM, PLASMA OR BLOOD BY CREATININE-B ASED FORMULA (CKD-EPI 2020) 50.7 60 06/08 Specimen Type: PLASMA Comment: No hemolysis noted. Ordering Provider: DASIA DOMÍNGUEZ Report Released Date/Time: Jun 08, 2024 09:04 AM Reporting Lab: [facility] [address] [facility] [address] Performing Lab: [place] [address] [facility] [address] [facility] VITAMIN D, 25-HYDRO XY 25-HYDROXYVI TAMIN D3 [MASS/VOLUME ] IN SERUM OR PLASMA 45.4 ng/mL 30 - 96 06/08 Specimen Type: SERUM No comment entered. Ordering Provider: DASIA DOMÍNGUEZ Report Released Date/Time: Jun 08, 2024 09:04 AM Reporting Lab: [facility] [address] [facility] [address] Performing Lab: [facility] [address] [facility] [address] [facility] MICRAL/C REAT PROFILE (STL) ALBUMIN [MASS/VOLUME ] IN URINE 50.5 mg/L 07/21 Specimen Type: URINE Comment: uALB/CREAT Ratio Unable to be calculated Ordering Provider: ANIL BALDERAS Report Released Date/Time: Jul 21, 2023 09:25 AM Reporting Lab: [facility] [address] [facility] [address] Performing Lab: [facility] [address] [facility] [address] [facility] MICRAL/C REAT PROFILE (STL) ALBUMIN/CREA TININE [MASS RATIO] IN URINE 197 mg/g 0 - 29 07/21 H Specimen Type: URINE Comment: uALB/CREAT Ratio Unable to be calculated Ordering Provider: ANIL BALDERAS Report Released Date/Time: Jul 21, 2023 09:25 AM Reporting Lab: [place] [address] [facility] [address] Performing Lab: [facility] [address] [facility] [address] [facility] MICRAL/C REAT PROFILE (STL) CREATININE [MASS/VOLUME ] IN URINE 25.6 mg/dL 63 - 166 07/21 L Specimen Type: URINE Comment: uALB/CREAT Ratio Unable to be calculated Ordering Provider: ANIL BALDERAS Report Released Date/Time: Jul 21, 2023 09:25 AM Reporting Lab: [place] [address] [facility] [address] Performing Lab: [facility] [address] [facility] [address] [facility] PROTEIN URINE PROTEIN [MASS/VOLUME ] IN URINE 9.5 mg/dL 07/21 Specimen Type: URINE Comment: No hemolysis noted. Ordering Provider: ANIL BALDERAS Report Released Date/Time: Jul 21, 2023 09:25 AM Reporting Lab: [facility] [address] [facility] [address] Performing Lab: [facility] [address] [facility] [address] [facility] PTH, INTACT (STL) PARATHYRIN.I NTACT [MASS/VOLUME ] IN SERUM OR PLASMA 96.20 pg/mL 8.7 - 77.7 07/21 H Specimen Type: SERUM No comment entered. Ordering Provider: ANIL BALDERAS Report Released Date/Time: Jul 21, 2023 09:25 AM Reporting Lab: [address] [address] Performing Lab: [address] [address] [facility] RENAL PANEL CREATININE [MASS/VOLUME ] IN SERUM OR PLASMA 1.78 mg/dL 0.7 - 1.3 07/21 H Specimen Type: PLASMA Comment: No hemolysis noted. Ordering Provider: ANIL BALDERAS Report Released Date/Time: Jul 21, 2023 09:25 AM Reporting Lab: [address] [address] Performing Lab: [address] [address] [facility] RENAL PANEL UREA NITROGEN [MASS/VOLUME ] IN SERUM OR PLASMA 17.1 mg/dL 9.0 - 25.0 07/21 Specimen Type: PLASMA Comment: No hemolysis noted. Ordering Provider: ANIL BALDERAS Report Released Date/Time: Jul 21, 2023 09:25 AM Reporting Lab: [address] [address] Performing Lab: [address] [address] [facility] RENAL PANEL GLUCOSE [MASS/VOLUME ] IN SERUM OR PLASMA 80 mg/dL 72 - 99 07/21 Specimen Type: PLASMA Comment: No hemolysis noted. Ordering Provider: ANIL BALDERAS Report Released Date/Time: Jul 21, 2023 09:25 AM Reporting Lab: [address] [address] Performing Lab: [address] [place] [address] [facility] RENAL PANEL SODIUM [MOLES/VOLUM E] IN SERUM OR PLASMA 139 meq/L 136 - 145 07/21 Specimen Type: PLASMA Comment: No hemolysis noted. Ordering Provider: ANIL BALDERAS Report Released Date/Time: Jul 21, 2023 09:25 AM Reporting Lab: [address] [address] Performing Lab: [address] [address] [facility] RENAL PANEL POTASSIUM [MOLES/VOLUM E] IN SERUM OR PLASMA 4.0 meq/L 3.5 - 5 07/21 Specimen Type: PLASMA Comment: No hemolysis noted. Ordering Provider: ANIL BALDERAS Report Released Date/Time: Jul 21, 2023 09:25 AM Reporting Lab: [address] [address] Performing Lab: [place] [address] [facility] [address] [facility] RENAL PANEL CHLORIDE [MOLES/VOLUM E] IN SERUM OR PLASMA 102 meq/L 98 - 107 07/21 Specimen Type: PLASMA Comment: No hemolysis noted. Ordering Provider: ANIL BALDERAS Report Released Date/Time: Jul 21, 2023 09:25 AM Reporting Lab: [address] [address] Performing Lab: [address] [address] [facility] RENAL PANEL CARBON DIOXIDE, TOTAL [MOLES/VOLUM E] IN SERUM OR PLASMA 31 meq/L 22 - 31 07/21 Specimen Type: PLASMA Comment: No hemolysis noted. Ordering Provider: ANIL BALDERAS Report Released Date/Time: Jul 21, 2023 09:25 AM Reporting Lab: [address] [address] Performing Lab: [address] [address] [facility] RENAL PANEL CALCIUM [MASS/VOLUME ] IN SERUM OR PLASMA 9.9 mg/dL 8.4 - 10.4 07/21 Specimen Type: PLASMA Comment: No hemolysis noted. Ordering Provider: ANIL BALDERAS Report Released Date/Time: Jul 21, 2023 09:25 AM Reporting Lab: [place] [address] [facility] [address] Performing Lab: [place] [address] [facility] [address] [facility] RENAL PANEL PHOSPHATE [MASS/VOLUME ] IN SERUM OR PLASMA 1.8 mg/dL 2.3 - 4.7 07/21 L Specimen Type: PLASMA Comment: No hemolysis noted. Ordering Provider: ANIL BALDERAS Report Released Date/Time: Jul 21, 2023 09:25 AM Reporting Lab: [place] [address] [facility] [address] Performing Lab: [place] [address] [facility] [address] [facility] RENAL PANEL ALBUMIN [MASS/VOLUME ] IN SERUM OR PLASMA 5.1 g/dL 3.4 - 5 07/21 H Specimen Type: PLASMA Comment: No hemolysis noted. Ordering Provider: ANIL BALDERAS Report Released Date/Time: Jul 21, 2023 09:25 AM Reporting Lab: [place] [address] [facility] [address] Performing Lab: [place] [address] [facility] [address] [facility] RENAL PANEL GLOMERULAR FILTRATION RATE/1.73 SQ M.PREDICTED [VOLUME RATE/AREA] IN SERUM, PLASMA OR BLOOD BY CREATININE-B ASED FORMULA (CKD-EPI 2020) 48.2 60 07/21 Specimen Type: PLASMA Comment: No hemolysis noted. Ordering Provider: ANIL BALDERAS Report Released Date/Time: Jul 21, 2023 09:25 AM Reporting Lab: [place] [address] [place] [id number] Performing Lab: [facility] [address] [facility] [address] [facility] Vital Signs Combined list of inpatient and outpatient Vital Signs from Department of Defense and Veterans Affairs, ranging from 12 months to all on record, depending upon the facility. Vital Sign Value Date Comments Source SYSTOLIC BLOOD PRESSURE 146 08/14/2024 10:33:32 [facility] DIASTOLIC BLOOD PRESSURE 88 08/14/2024 10:33:32 [facility] PULSE OXIMETRY 98 08/14/2024 10:33:32 [facility] 217.8 08/14/2024 10:33:32 [facility] BMI 31 kg/m2 08/14/2024 10:33:32 [facility] PAIN 0 08/14/2024 10:33:32 [facility] TEMPERATURE 98 08/14/2024 10:33:32 [facility] PULSE 77 08/14/2024 10:33:32 [facility] RESPIRATION 18 08/14/2024 10:33:32 [facility] SYSTOLIC BLOOD PRESSURE 138 06/08/2024 09:08:43 [facility] DIASTOLIC BLOOD PRESSURE 84 06/08/2024 09:08:43 [facility] PULSE OXIMETRY 98 06/08/2024 09:08:43 S Kassandra [facility] WEIGHT 219.7 06/08/2024 09:08:43 [facility] BMI 32 kg/m2 06/08/2024 09:08:43 [facility] PAIN 0 06/08/2024 09:08:43 [facility] TEMPERATURE 98 06/08/2024 09:08:43 [facility] PULSE 73 06/08/2024 09:08:43 [facility] RESPIRATION 16 06/08/2024 09:08:43 [facility] SYSTOLIC BLOOD PRESSURE 123 11/15/2023 10:30:15 [facility] DIASTOLIC BLOOD PRESSURE 82 11/15/2023 10:30:15 [facility] PULSE OXIMETRY 96 11/15/2023 10:30:15 [facility] WEIGHT 209.2 11/15/2023 10:30:15 [facility] BMI 30 kg/m2 11/15/2023 10:30:15 [facility] PAIN 6 11/15/2023 10:30:15 [facility] TEMPERATURE 98.3 11/15/2023 10:30:15 [facility] PULSE 101 11/15/2023 10:30:15 [facility] RESPIRATION 16 11/15/2023 10:30:15 [facility] Encounters Combined list of: 1) Encounters from Department of [facility] Affairs facilities going backup to the last 18 months, not all [place] inpatient encounters are included; 2) Encounters from the Department of Defense facilities going backup to 280 months. Location Location Details Encounter Type Encounter Number Reason For Visit Attending Provider ADM Date DC Date Status Disposition Source [place] OUTPATIENT [id number] 326/ lt knee profile DOMINIC LEZAMA 03/16 Released with Work/Duty Limitations [facility] [place] OUTPATIENT [id number] RESULTS /326 CASI ABRAHAM 04/14 Released w/o Limitations [facility] [place] [place] [place] [place] OUTPATIENT [id number] STEPHANIE GOETZ 04/17 Released w/o Limitations [facility] [place] OUTPATIENT [id number] 08/07 Released w/o Limitations [facility] OUTPATIENT [id number] 08/18 Released w/o Limitations [facility] OUTPATIENT [id number] 11/14 Released w/o Limitations [facility] OUTPATIENT [id number] 04/01 Released w/o Limitations [facility] OUTPATIENT [id number] 04/19 Released with Work/Duty Limitations [facility] OUTPATIENT [id number] 05/27 Released with Work/Duty Limitations [facility] [place] [id number] NO FEELING IN FINGERS BOTH HANDS-- 326 EN HAILEY BANERJEE 10/22 [facility] Limitations [facility] [place] [id number] POSS-ME RSA--32 6 EN MOUNIKA MILLER 02/13 Released w/o Limitations [facility] [place] [place] [facility]([place] [id number] left eye swollen GERALD SILVA S 05/13 Released w/o Limitations [facility] Care [facility]-[place] [facility] [id number] lower back pain MARCO A, CALI A 06/02 Released w/o Limitations [facility] Care [place] [facility] [id number] flu vaccine MELISSA LORA 06/30 Released w/o Limitations [facility]([employer] [place] [facility] [id number] H1N1 VACCINE LUIS ALFREDO BETHEA 09/24 Released w/o Limitations [facility]([place] [place]) [facility]) OUTPATIENT [id number] RYAN WALTERS 09/30 Released w/o Limitations [facility]) [facility]([place] [id number] EYE EXAM HAILEY THOMAS 10/16 Released w/o Limitations [facility]([place] [facility] [id number] pha MAYURI STRICKLANDGT Mitchell 10/17 Released w/o Limitations [facility] [facility] [id number] Profile Status ZAHIDA STRICKLANDBRYAN Mitchell 10/22 Released w/o Limitations [facility]([place] [facility] [id number] Profile update for 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 ent BEVERLEY WALTERS Hector 10/23 Released with Work/Duty Limitations [facility]([place]) [facility] [id number] right ear pain CAROLINA PENG 11/12 Released w/o Limitations [facility]([place] [facility] Primary [facility] Clinic) OUTPATIENT [id number] [facility] SADIQ PEREZ 12/18 Released w/o Limitations [facility]) [facility] [id number] ALPHONSE Briones 12/30 Released w/o Limitations [facility]([place] [facility] OUT[facility] [id number] 03/10 Released w/o Limitations [facility] OUTPATIENT [id number] 03/11 Released w/o Limitations [facility] OUTPATIENT [id number] 03/14 Released w/o Limitations [facility] OUTPATIENT [id number] 04/01 Released w/o Limitations [facility] OUTPATIENT [id number] 06/29 Released w/o Limitations [facility] OUTPATIENT [id number] 09/02 Released w/o Limitations [facility] OUTPATIENT [id number] 09/21 Released w/o Limitations [facility] OUTPATIENT [id number] 10/24 Released w/o Limitations [facility] OUTPATIENT [id number] 01/08 Released w/o Limitations [facility] OUTPATIENT [id number] 01/17 Released w/o Limitations [facility](Primary Care Cl-[place]/[employer] [place] OUTPATIENT [id number] DAVE JORDAN YOVANI PADILLAY 02/15 Released w/o Limitations [facility]([place] [facility] [place]a h [place] [facility] Primary Care Clinic) OUTPATIENT [id number] rp PRECIOUS MANUEL 02/15 Released w/o Limitations [facility] Primary [facility]) [facility]([place] [id number] request ing amalia rocha for psych eval STANLEY YOUSSEF 03/08 Released w/o Limitations [facility]([place] [facility] [id number] knee brace STANLEY YOUSSEF 05/04 Released w/o Limitations [facility]([place] [facility] [id number] xray results STANLEY YOUSSEF 05/11 Released w/o Limitations [facility]([place] [facility](Family Medicine Nurse Cl [place] [id number] FLU MIST ALISTAIR LUGO 05/19 Released w/o Limitations [facility](Fam helen Medicin [place] Nurse Cl [place]) [facility] [id number] rash/bl STANLEY Vazquez 05/24 Sick at Home/Quarter s [facility]([place] [facility] OUT[place] [id number] emg-res ult-jrm STANLEY Platt 06/03 Released w/o Limitations [facility]([place] [facility]([place]ica [place] Therapy [place] [id number] CARPAL TUNNEL SYNDROM E GINO BLAIR 06/15 Released w/o Limitations [facility]([place]ical [place]) [facility]) OUTPATIENT [id number] TAYLOR Murdock 07/08 Released w/o Limitations [facility] Primary Care Clinic) [facility]) OUTPATIENT [id number] shoulde r pain-olamide th STEVAN ALEJO 08/12 Released with Work/Duty Limitations [facility]) TELE CONSULT [id number] Appt Schedul ing, Not MNR Care Coordin SINGH Vidal 08/12 Referred for Appointment [facility]) [facility](Emerge ncy Room) OUTPATIENT [id number] MARIA GUADALUPE REESE 10/25 Sick at Home/Quarter s [facility](Marni gency Room) [facility]) OUTPATIENT [id number] back. STEVAN ALEJO 10/26 Sick at Home/Quarter s [facility]) [facility](Optome try Clinic) OUTPATIENT [id number] eye exam BETSY MAIN 05/10 Released w/o Limitations [facility](Opto metry Clinic) [facility]) OUTPATIENT [id number] Notes Entered by: MARIO BISHOP 15 Jun 2012 0724 ------- ------- ------- ------- -- flu shot RAFAEL BISHOP 06/15 Released w/o Limitations Onia ARMANDO [place], [facility]) Onia ARMANDO Christensen [facility]([employer] e[employer] Deploymen t) OUTPATIENT [id number] Notes Entered by: RANDY RICCI 05 Jul 2012 1059 ------- ------- ------- ------- -- MOUNIKA CALDERON 07/05 Released w/o Limitations Michelle ARMANDO [place], [facility]- Pre&Pos t Deploym ent) Michelle ARMANDO [facility] [place]([employer] e&Post Deploymen t) OUTPATIENT [id number] Notes Entered by: Chema CANTOR 11 Oct 2012 1019 ------- ------- ------- ------- -- MOUNIKA Calderon 10/11 Released w/o Limitations Michelle ARMANDO [place], [place]([facility]- Pre&Pos t Deploym ent) Michelle [facility] Allen([facility]-He aring Conservat ion) OUTPATIENT [id number] Notes Entered by: ARISTEO CHOUDHURY 11 Oct 2012 1032 ------- ------- ------- ------- -- Hearing test ARISTEO CHOUDHURY 10/11 Released w/o Limitations Michelle [facility]LA [facility]- Hearing Conserv ation) Michelle ARMANDO [facility] [place]([facility]-Im munizatio ns) OUTPATIENT [id number] Notes Entered by: Chema TANG 11 Oct 2012 1110 ------- ------- ------- ------- -- HERE FOR LABS/IM MUNIZAT IONS JERMAINE BHANDARI 10/11 Released w/o Limitations Michelle ARAMNDO Uziel Christensen, [place]([facility]- Immuniz ations) Onia [facility] [place]([facility] Hearing Program) OUTPATIENT [id number] Notes Entered by: HAYLEE MADDIE VASQUEZ 07 Nov 2012 1114 ------- ------- ------- ------- -- Ngozi Lees NICHOLAS DEY 11/07 Released w/o Limitations [facility]ia ARMANDO Christensen [place]([facility] ) Onia ARMANDO Christensen [place]([facility]) OUTPATIENT [id number] elbos/s houlder pain LASHAWN TORRES T 02/09 Released w/o Limitations Onia ARMANDO Christensen [place]([facility]) Onia ARMANDO Christensen [place]([facility]) TELE CONSULT [id number] Notes Entered by: ROCIO GONZALEZ 2013 1204 ------- ------- ------- ------- -- X-ray Results [place] LASHAWN T 02/12 Onia ARMANDO Christensen [place]([facility]) Onia ARMANDO Christensen [facility]([employer] e[employer]Post Deploymen t) OUTPATIENT [id number] Notes Entered by: MARTHA CEJA 21 Feb 2013 1106 ------- ------- ------- ------- -- PRATIMA Cedillo 02/21 Released w/o Limitations Onia ARMANDO Christensen [facility]([employer]- Pre&Pos t Deploym ent) Onia ARMANDO Christensen [facility]-Op tometry) OUTPATIENT [id number] Notes Entered by: Hector BASSETT 21 Feb 2013 1123 ------- ------- ------- ------- -- vision sccreen SPEEDY Mora 02/21 Released w/o Limitations Onia ARMANDO Christensen [facility]- Optomet ry) Onia ARMANDO Christensen [facility]) OUTPATIENT [id number] Notes Entered by: GUILLERMO TOVAR 22 Feb 2013 0754 ------- ------- ------- ------- -- BL Shoulde r Pain STEVE POND 02/22 Released w/o Limitations Onia [facility]) Michelle [facility]) OUTPATIENT [id number] Notes Entered by: GUILLERMO TOVAR 06 Mar 2013 0830 ------- ------- ------- ------- -- BL Shoulde r Pain GUILLERMO TOVAR 03/06 Released w/o Limitations Onia [facility]) Onia [facility]) OUTPATIENT [id number] Notes Entered by: GUILLERMO TOVAR 09 Mar 2013 0827 ------- ------- ------- ------- -- BL Shoulde r Pain GUILLERMO TOVAR 03/09 Released w/o Limitations Onia KEYLA Allen([facility] on Physica l Therapy Clinic) Onia [facility] Allen([facility]) OUTPATIENT [id number] Notes Entered by: GUILLERMO TOVAR 14 Mar 2013 0834 ------- ------- ------- ------- -- BL Shoulde r Pain GUILLERMO TOVAR 03/14 Released w/o Limitations [facility]([facility] on Physica l Therapy Clinic) [facility] Padilla([facility]) OUTPATIENT [id number] Notes Entered by: ROCIO GONZALEZ 17 Apr 2013 0945 ------- ------- ------- ------- -- LASHAWN RICHARDSON 04/17 Released w/o Limitations Onia [facility]) [facility]) OUTPATIENT [id number] Notes Entered by: STEVE POND 19 Apr 2013 0754 ------- ------- ------- ------- -- f/u STEVE Angel 04/19 Released w/o Limitations Michelle Bernardoox, [facility] on Physica l Therapy Clinic) Michelle Christensen, [facility]) OUTPATIENT [id number] Notes Entered by: GUILLERMO TOVAR 01 May 2013 0907 ------- ------- ------- ------- -- GUILLERMO Vargas 05/01 Released w/o Limitations Michelle ARMANDO Christensen, [facility]) Michelle ARMANDO Christensen, [facility]([employer]-Pr e[employer]Post Deploymen t) OUTPATIENT [id number] Notes Entered by: RANDY RICCI 04 Jun 2013 1200 ------- ------- ------- ------- -- PRATIMA CEDILLO 06/04 Released w/o Limitations Onia ARMANDO Christensen, [facility]([employer]- Pre&Pos t Deploym ent) Onia ARMANDO Christensen [facility]-Im munizatio ns) OUTPATIENT [id number] Notes Entered by: DYAN ROWELL 04 Jun 2013 1214 ------- ------- ------- ------- -- HERE FOR LABS/IM MUNIZAT IONS JERMAINE BHANDARI 06/04 Released w/o Limitations Onia ARMANDO Christensen, [facility]- Immuniz ations) Onia ARMANDO Christensen, [facility]) OUTPATIENT [id number] Notes Entered by: LUZ MARIA COCHRAN 11 Jul 2013 0718 ------- ------- ------- ------- -- LASHAWN Mcclellan 07/11 Released w/o Limitations Michelle ARMANDO [place]([facility] on Medical Clinic) Onia ARMANDO Christensen [facility]) TELE CONSULT [id number] Notes Entered by: STEPHAN NICHOLS 19 Jul 2013 0908 ------- ------- ------- ------- -- MRI Results LASHAWN TORRES 07/19 Michelle ARMANDO Christensen, [place]LA([facility]) Michelle Christensen, KEYLA([facility]-Pr e&Post Deploymen t) OUTPATIENT [id number] Notes Entered by: NICK JIMENEZ 23 Apr 2014 0742 ------- ------- ------- ------- -- RSRP ALPHONSE WHEELER 04/23 Released w/o Limitations Michelle Christensen, KEYLA([employer]- Pre&Pos t Deploym ent) Michelle Christensen, KEYLA([facility]-Im munizatio ns) OUTPATIENT [id number] Notes Entered by: JERMAINE WEBB 23 Apr 2014 0814 ------- ------- ------- ------- -- HERE FOR LABS/IM MUNIZAT IONS JERMAINE BHANDARI 04/23 Released w/o Limitations Michelle ARMANDO [place], [place]([facility]- Immuniz ations) Michelle Christensen, KEYLA([facility]-He aring Conservat ion) OUTPATIENT [id number] Notes Entered by: MELLISSA FRIEDMAN 23 Apr 2014 0902 ------- ------- ------- ------- -- Hearing test ALPHONSE PIMENTEL 04/23 Released w/o Limitations [place]- Hearing Conserv ation) Michelle ARMANDO Christensen, KEYLA([facility]-Op tometry) OUTPATIENT [id number] Notes Entered by: JULITA DOSHI 23 Apr 2014 0930 ------- ------- ------- ------- -- OPTOMET RY SERGEY TURNER 04/23 Released w/o Limitations [place]- Optomet ry) Onia ARMANDO ChristensenKEYLA([facility] OUTPATIENT [id number] DEVAUGHN BOX 06/13 Released w/o Limitations Michelle ROB[place] [place] [id number] Notes Entered by: RADHA PENA 18 Jun 2014 1555 ------- ------- ------- ------- -- ad flu shot left arm RADHA PENA 06/18 Released w/o Limitations [place] [facility] [place]) [facility] [place] [id number] phase 1 ets MADDI LINDSEY 06/26 Released w/o Limitations [facility] [place]) [place] [facility] [place] [id number] ETS JG THAPA 06/26 Released w/o Limitations [place] [facility] [place]) [facility] [place] [facility] [id number] ETS NICHOLAS LARIOS 06/26 Released w/o Limitations [facility] [place] [facility] [place]) [place] [id number] phase 2 ets PERFECTO SOSA 06/28 Released w/o Limitations [facility] [place]) [facility] [place] [facility] [id number] ADONIS GOMES 07/03 Released w/o Limitations [facility] [place] [facility] [place] [id number] JG LUNDY 07/05 Released w/o Limitations [place] [facility] [place]) [place] [facility] [place]) [place] [id number] TENDONI TIS KIAH BOWEN 07/15 Released with Work/Duty Limitations [facility] [place]([facility]) OUTPATIENT [id number] KIAH Johnson 07/25 Released w/o Limitations [place](Phys ical Therapy Clinic) [place]([employer]-Pr e&Post Deploymen t) OUTPATIENT [id number] Notes Entered by: BART RIVERA 29 Jul 2014 0904 ------- ------- ------- ------- -- KEELY RIDER 07/29 Released w/o Limitations Michelle Christensen [place]([employer]- Pre&Pos t Deploym ent) [place](Physic al Therapy Clinic) OUTPATIENT [id number] f/u - shoulde KIAH Toscano 07/30 Released with Work/Duty Limitations Onia KEYLA Allen(Phys ical Therapy Clinic) [facility] Outpatient Encounter [id number] RYAN NERI A 05/06 [facility] OFFICE O/P EST MOD 30-39 MIN [id number] Diagnos is: ICD-10- CM I10 Essenti al (primar y) hyperte nsion MARIE DEE A 05/10 [facility] PT EDUCATION NOC INDIVID [id number] Diagnos is: ICD-10- CM G47.36 Sleep related hypoven tilatio n in conditi ons classd elswhr CHARO WALL G 05/11 [facility] OFFICE O/P EST MOD 30-39 MIN [id number] Diagnos is: ICD-10- CM I50.32 Chronic diastol ic (conges tive) heart failure AZIZA EVANS 05/[address] [facility] [facility] Outpatient Encounter [id number] YENNY CORBETT GGY 06/21 [facility] Outpatient Encounter [id number] 06/22 [facility] Outpatient Encounter [id number] 06/24 [facility] Outpatient Encounter [id number] 07/06 [facility] Outpatient Encounter [id number] NAVI KENDRICK 07/19 [facility] Outpatient Encounter [id number] NAVI KENDRICK 07/20 [facility] OFFICE O/P EST SF 10-19 MIN [id number] Diagnos is: ICD-10- CM N18.31 Chronic kidney disease , stage 3a CHUU,ANIL 07/21 [facility] Outpatient Encounter [id number] Diagnos is: ICD-10- CM R93.3 Abnorma l finding s on dx imaging of prt digesti ve tract GUIGNON,CH RISTINA 07/26 [facility] Outpatient Encounter [id number] NAVI KENDRICK 07/26 [facility] OFFICE O/P EST MOD 30 MIN [id number] Diagnos is: ICD-10- CM N18.31 Chronic kidney disease , stage 3a CHANIANLACEY Brannon T 09/22 [facility] Outpatient Encounter [id number] 09/22 [facility] OFFICE O/P EST HI 40 MIN [id number] Diagnos is: ICD-10- CM I50.32 Chronic diastol ic (conges tive) heart failure JULIA HOLLINS S 11/14 [facility] Outpatient Encounter [id number] PIPER BRANDT L 03/21 [facility] Outpatient Encounter [id number] NAVI KENDRICK J 03/21 [facility] Outpatient Encounter [id number] 04/02 [facility] Outpatient Encounter [id number] 04/30 [facility] Outpatient Encounter [id number] 05/30 [facility] OFFICE O/P EST MOD 30 MIN [id number] Diagnos is: ICD-10- CM I10 Essenti al (primar y) hyperte nsion RONALDO DOMÍNGUEZ N 06/08 [facility] OFFICE O/[place] HI 40 MIN [id number] Diagnos is: ICD-10- CM I10 Essenti al (primar y) hyperte nsJULIOCESAR Edmondson S 08/14 [facility] Outpatient Encounter [id number] 08/15 [facility] Outpatient Encounter [id number] 10/18 [facility] Outpatient Encounter [id number] 10/22 [facility] Procedures Combined list of: 1) Procedures from Department of [facility] Affairs facilities [facility], not all VA non-surgical procedures are included; 2) All procedures from the Department of Defense facilities. Procedure Procedure Type Code Date Perfomer Comments [facility] huyen Physical Therapy: ___ Se ion Segments, 15 Minutes Each Physical Therapy: ___ Session Segments, 15 Minutes Each 94115 KIAH FLORENCE [facility] Physical Therapy Service Re-Evaluation Physical Therapy Service Re-Evaluation 10747 KIAH FLORENCE [facility] Physical Therapy: ___ Se ion Segments, 15 Minutes Each Physical Therapy: ___ Session Segments, 15 Minutes Each 17118 KIAH FLORENCE [facility] Physical Therapy Service Re-Evaluation Physical Therapy Service Re-Evaluation 50197 KIAH FLORENCE [facility] Physical Therapy: ___ Se ion Segments, 15 Minutes Each Physical Therapy: ___ Session Segments, 15 Minutes Each 95682 KIAH FLORENCE [facility] Physical Therapy Service Evaluation Physical Therapy Service Evaluation 55060 KIAH FLORENCE [facility] Scanning Computerized Ophthalmic Diagnostic Imaging Optic Nerve Scanning Computerized Ophthalmic Diagnostic Imaging Optic Nerve 46758 JG MARTELL Ophthalmological New Patient Start Comprehensive Care Ophthalmological New Patient Start Comprehensive Care 26874 JG MARTELL Ear mold/insert, not disposable, any type ADONIS GOMES Ear Protector Attenuation Measurements Ear Protector Attenuation Measurements 54804 ADONIS GOMES Tympanometry Tympanometry 01872 ADONIS GOMES Comprehensive Audiometry Comprehensive Audiometry 35116 ADONIS GOMES Audiometry Group Testing Audiometry Group Testing 10536 HARRIET NICHOLAS Chema [facility] Screening Test Of Visual Acuity, Quantitative, Bilateral Screening Test Of Visual Acuity, Quantitative, Bilateral 26453 JG MARTELL Spectacles Services Fitting Monofocal Except For Aphakia Spectacles Services Fitting Monofocal Except For Aphakia 25738 JG MARTELL Determination Of Refractive State Determination Of Refractive State 11170 JG MARTELL Influenza Vaccine Cell Culture Derivative, Preservative And Antibiotic Free, Trivalent, 0.5mL, IM RADHA PENA Influenza Seasonal, injectable MDCK - preservative free (Flucelvax); Series #: 1; .5 mL; IM; Left Arm; iHealth[employer]: Omise.; Lot: [id number]. [facility] Immunization Administration By Injection, One Vaccine Immunization Administration By Injection, One Vaccine 10293 RADHA PENA [facility] Screening Test Of Visual Acuity, Quantitative, Bilateral Screening Test Of Visual Acuity, Quantitative, Bilateral 20613 SERGEY DILLARD [facility] Audiometry Group Testing Audiometry Group Testing 25473 ALPHONSE PIMENTEL [facility] Venipuncture Venipuncture 54769 JERMAINE BHANDARI [facility] Psychotherapy Individual Approximately 30 Minutes GUY WILLOUGHBY [facility] Venipuncture Venipuncture 91367 JERMAINE BHANDARI [facility] Influenza Split Virus Vaccine 0.5mL Dosage Intramuscular JERMAINE BHANDARI [facility] Immunization Administration By Injection, One Vaccine Immunization Administration By Injection, One Vaccine 35547 JERMAINE BHANDARI [facility] Physical Therapy: ___ Se ion Segments, 15 Minutes Each Physical Therapy: ___ Session Segments, 15 Minutes Each 12616 013 GUILLERMO TOVAR Osteopathic Manip Treatment (OMT) 1-2 Body Regions Involved Osteopathic Manip Treatment (OMT) 1-2 Body Regions Involved 65442 013 STEVE POND Physical Therapy Service Re-Evaluation Physical Therapy Service Re-Evaluation 79654 013 STEVE POND Skin Test Anergy Tuberculin Intradermal Skin Test Anergy Tuberculin Intradermal 22921 013 LASHAWN TORRES [facility] Physical Therapy: ___ Se ion Segments, 15 Minutes Each Physical Therapy: ___ Session Segments, 15 Minutes Each 90469 013 GUILLERMO TOVAR Physical Therapy: ___ Se ion Segments, 15 Minutes Each Physical Therapy: ___ Session Segments, 15 Minutes Each 38082 013 GUILLERMO TOVAR 30 min [facility] Physical Therapy: ___ Se ion Segments, 15 Minutes Each Physical Therapy: ___ Session Segments, 15 Minutes Each 89922 013 GUILLERMO TOVAR 30 min [facility] Physical Therapy Service Evaluation Physical Therapy Service Evaluation 69777 013 STEVE POND Screening Test Of Visual Acuity, Quantitative, Bilateral Screening Test Of Visual Acuity, Quantitative, Bilateral 76511 013 SPEEDY BASSETT [facility] Patient Training And Self-Care Skills Patient Training And Self-Care Skills 64113 013 SANDY CHERY [facility] Audiometry Group Testing Audiometry Group Testing 23853 013 SANDY CHERY Threshold Audiogram (Pure Tone) Threshold Audiogram (Pure Tone) 62225 SANDY CHERY [facility] Immunization Administration By Injection, One Vaccine Immunization Administration By Injection, One Vaccine 45194 JERMAINE BHANDARI [facility] Anthrax Vaccine, For Intramuscular Use JERMAINE BHANDARI [facility] Audiometry Group Testing Audiometry Group Testing 59893 ARISTEO CHOUDHURY [facility] Psychologic Testing And Report Administered By Physician Psychologic Testing And Report Administered By Physician 35915 012 DAI COHEN Tabulated, Scored, interpreted and wrote report for psychological data [facility] Psychometric Neuropsych Testing Battery Admin By Electric Motorman Psychometric Neuropsych Testing Battery Admin By Electric Motorman 59936 012 GINO SHETH The SM required 5.75 hrs. To complete the testing of which 23 minutes involved computer-adminis tered assessments that were supervised by the examiner. [employer] Psychotherapy Individual Approximately 45 Minutes Psychotherapy Individual Approximately 45 Minutes 02162 012 DAI COHEN [facility] Immunization Administration By Injection, One Vaccine Immunization Administration By Injection, One Vaccine 56975 012 RAFAEL BISHOP [facility] Influenza Virus Vaccine Intranasal Live Attenuated 012 RAFAEL BISHOP [facility] Clinical Social Work Counseling Family Conjoint 012 RL GILMAN [facility] Spectacles Services Fitting Monofocal Except For Aphakia Spectacles Services Fitting Monofocal Except For Aphakia 29211 012 BETSY MAIN [facility] Determination Of Refractive State Determination Of Refractive State 86330 012 BETSY MAIN [facility] Ophthalmological New Patient Start Comprehensive Care Ophthalmological New Patient Start Comprehensive Care 56521 012 BETSY MAIN [facility] Scanning Computerized Ophthalmic Diagnostic Imaging Optic Nerve Scanning Computerized Ophthalmic Diagnostic Imaging Optic Nerve 69187 012 BETSY MAIN [facility] Clinical Social Work Counseling Marital 012 RL GILMAN [facility] Psychotherapy Group Interview Psychotherapy Group Interview 53590 012 SHELBY PEARL [facility] Psychotherapy Group Interview Psychotherapy Group Interview 44485 012 SHELBY PEARL [facility] Psychotherapy Group Interview Psychotherapy Group Interview 30056 012 SHLEBY PEARL [facility] Clinical Social Work Counseling Family Conjoint 012 RL GILMAN [facility] Psychotherapy Group Interview Psychotherapy Group Interview 88885 012 SHELBY PEARL [facility] Psychotherapy Group Interview Psychotherapy Group Interview 08770 012 NAKUL GUEVARA 60 minutes DoD Psychotherapy Group Interview Psychotherapy Group Interview 99591 012 RL GILMAN [facility] Psychotherapy Group Interview Psychotherapy Group Interview 47295 012 ORTEGA WEEKS [facility] Psychotherapy Group Interview Psychotherapy Group Interview 25425 011 ORTEGA WEEKS [facility] Clinical Social Work Counseling Family Conjoint 011 RL GILMAN [facility] Psychotherapy Group Interview Psychotherapy Group Interview 51324 011 ORTEGA WEEKS [facility] Clinical Social Work Individual Outpatient Counseling 45 Minutes Clinical Social Work Individual Outpatient Counseling 45 Minutes 98830 011 RL GILMAN [facility] Wrist hand orthosis, wrist extension control cock-up, non molded, prefabricated, [id number] 011 GINO BLAIR [facility] A isted Exercises For ROM Assisted Exercises For ROM 15878 011 GINO BLAIR [facility] Physical Therapy Service Evaluation Physical Therapy Service Evaluation 30743 011 GINO BLAIR [facility] Influenza Virus Vaccine Intranasal Live Attenuated 011 [facility] Immunization Admin By Intranasal / Oral Route One Vaccine Immunization Admin By Intranasal / Oral Route One Vaccine 59564 011 [facility] Psychiatric Diagnostic Evaluation Comprehensive Examination Psychiatric Diagnostic Evaluation Comprehensive Examination 83667 011 MELISSA COTO [facility] Audiometry Group Testing Audiometry Group Testing 50783 011 YOVANI ORTEGA [facility] Ophthalmological Prior Patient Start Intermediate Level Care Ophthalmological Prior Patient Start Intermediate Level Care 96866 010 ALPHONSE HERNANDEZ [facility] Anthrax Vaccine, For Subcutaneous Use 010 SADIQ PEREZ [facility] Venipuncture Venipuncture 83523 010 SADIQ PEREZ [facility] Spectacles Services Fitting Monofocal Except For Aphakia Spectacles Services Fitting Monofocal Except For Aphakia 88735 010 HAILEY THOMAS FOC and S9 fitted [facility] Ophthalmological New Patient Start Comprehensive Care Ophthalmological New Patient Start Comprehensive Care 32165 010 HAILEY THOMAS Determination Of Refractive State Determination Of Refractive State 44699 010 HAILEY THOMAS [facility] Immunization Admin By Intranasal / Oral Route One Vaccine Immunization Admin By Intranasal / Oral Route One Vaccine 10514 LUIS ALFREDO BETHEA [facility] Influenza Virus Vaccine Pandemic Formulation Influenza Virus Vaccine Pandemic Formulation 88186 LUIS ALFREDO BETHEA [facility] Immunization Admin By Intranasal / Oral Route One Vaccine Immunization Admin By Intranasal / Oral Route One Vaccine 25767 MELISSA LORA [facility] Influenza Virus Vaccine Intranasal Live Attenuated MELISSA LORA [facility] Injection, ketorolac tromethamine, per 15 mg CALI STRICKLAND Please administer Toradol, 60 mg IM x one now. Thanks. [facility] Knee orthosis, elastic with joints, prefabricated, includes fitting and adjustment AVERY HILL [facility] SKIN TEST; TUBERCULOSIS, INTRADERMAL [facility] VACCINIA IMMUNE GLOBULIN, HUMAN, FOR INTRAMUSCULAR USE [facility] KNEE ORTHOSIS, ELASTIC WITH JOINTS, PREFABRICATED ITEM THAT HAS BEEN TRIMMED, BENT, MOLDED, ASSEMBLED, OR OTHERWISE CUSTOMIZED TO FIT A SPECIFIC PATIENT BY AN INDIVIDUAL WITH EXPERTISE [facility] INFLUENZA VIRUS VACCINE, TRIVALENT (IIV3), SPLIT VIRUS, 0.5 ML DOSAGE, FOR INTRAMUSCULAR USE [facility] THERAPEUTIC PROCEDURE, 1 OR MORE AREAS, EACH 15 MINUTES; THERAPEUTIC EXERCISES TO DEVELOP STRENGTH AND ENDURANCE, RANGE OF MOTION AND FLEXIBILITY [facility] THERAPEUTIC PROCEDURE, 1 OR MORE AREAS, EACH 15 MINUTES; THERAPEUTIC EXERCISES TO DEVELOP STRENGTH AND ENDURANCE, RANGE OF MOTION AND FLEXIBILITY [facility] THERAPEUTIC PROCEDURE, 1 OR MORE AREAS, EACH 15 MINUTES; THERAPEUTIC EXERCISES TO DEVELOP STRENGTH AND ENDURANCE, RANGE OF MOTION AND FLEXIBILITY [facility] SCANNING COMPUTERIZED OPHTHALMIC DIAGNOSTIC IMAGING, POSTERIOR SEGMENT, WITH INTERPRETATION AND REPORT, UNILATERAL OR BILATERAL; OPTIC NERVE [facility] EAR MOLD/INSERT, NOT DISPOSABLE, ANY TYPE [facility] AUDIOMETRIC TESTING OF GROUPS [facility] SCREENING TEST OF VISUAL ACUITY, QUANTITATIVE, BILATERAL [facility] INFLUENZA VIRUS VACCINE, TRIVALENT (CCIIV3), DERIVED FROM CELL CULTURES, SUBUNIT, PRESERVATIVE AND ANTIBIOTIC FREE, 0.5 ML DOSAGE, FOR INTRAMUSCULAR USE [facility] SCREENING TEST OF VISUAL ACUITY, QUANTITATIVE, BILATERAL [facility] AUDIOMETRIC TESTING OF GROUPS [facility] COLLECTION OF VENOUS BLOOD BY VENIPUNCTURE [facility] PSYCHOTHERAPY, 30 MINUTES WITH PATIENT [facility] THERAPEUTIC, PROPHYLACTIC, OR DIAGNOSTIC INJECTION (SPECIFY SUBSTANCE OR DRUG); SUBCUTANEOUS OR INTRAMUSCULAR [facility] COLLECTION OF VENOUS BLOOD BY VENIPUNCTURE [facility] APPLICATION OF A MODALITY TO 1 OR MORE AREAS; TRACTION, MECHANICAL [facility] OSTEOPATHIC MANIPULATIVE TREATMENT (OMT); 1-2 BODY REGIONS INVOLVED [facility] SKIN TEST; TUBERCULOSIS, INTRADERMAL [facility] THERAPEUTIC PROCEDURE, 1 OR MORE AREAS, EACH 15 MINUTES; THERAPEUTIC EXERCISES TO DEVELOP STRENGTH AND ENDURANCE, RANGE OF MOTION AND FLEXIBILITY [facility] THERAPEUTIC PROCEDURE, 1 OR MORE AREAS, EACH 15 MINUTES; THERAPEUTIC EXERCISES TO DEVELOP STRENGTH AND ENDURANCE, RANGE OF MOTION AND FLEXIBILITY [facility] THERAPEUTIC PROCEDURE, 1 OR MORE AREAS, EACH 15 MINUTES; THERAPEUTIC EXERCISES TO DEVELOP STRENGTH AND ENDURANCE, RANGE OF MOTION AND FLEXIBILITY [facility] PHYSICAL THERAPY EVALUATION [facility] SCREENING TEST OF VISUAL ACUITY, QUANTITATIVE, BILATERAL [facility] AUDIOMETRIC TESTING OF GROUPS [facility] ANTHRAX VACCINE, FOR SUBCUTANEOUS OR INTRAMUSCULAR USE [facility] AUDIOMETRIC TESTING OF GROUPS [facility] PSYCHOLOG TESTING (ASSESS EMOTION,INTELLECT ABILITIES,PERSONALI TY & PSYCHOPATH,EG,MMPI, [place])/HR PSYCHOLOGIST/PHYS TIME,BOTH GCLC-DX-KSFH ADMIN TEST TO PAT & INTERP TEST RESULT & PREP RPT [facility] NEUROPSYC TSTNG(EG,YUSUF-R TIA NEUROPSYC DENYS,SUYAPA MEMRY SCALES&[place] CARD SORT TST),W QUALIFIED HEALTH CARE PROFSIONAL INTERP&RPT,ADMINIST ERED ESTHETICIAN FACIALIST,/HR,MONALISA CABEZAS,FCE-2-FCE [facility] INDIVIDUAL PSYCHOTHERAPY, INSIGHT ORIENTED, BEHAVIOR MODIFYING AND/OR SUPPORTIVE, IN AN OFFICE OR OUTPATIENT FACILITY, APPROXIMATELY 45 TO 50 MINUTES [id number] WITH THE PATIENT [facility] IMMUNIZATION ADMINISTRATION BY INTRANASAL OR ORAL ROUTE; 1 VACCINE (SINGLE OR COMBINATION VACCINE/TOXOID) [facility] FITTING OF SPECTACLES, EXCEPT FOR APHAKIA; MONOFOCAL [facility] FAMILY PSYCHOTHERAPY (CONJOINT PSYCHOTHERAPY) (WITH PATIENT PRESENT), 50 MINUTES [facility] COLLECTION OF VENOUS BLOOD BY VENIPUNCTURE [facility] FAMILY PSYCHOTHERAPY (CONJOINT PSYCHOTHERAPY) (WITH PATIENT PRESENT), 50 MINUTES [facility] SCREENING TEST OF VISUAL ACUITY, QUANTITATIVE, BILATERAL DoD GROUP PSYCHOTHERAPY (OTHER THAN OF A MULTIPLE-FAMILY GROUP) DoD GROUP PSYCHOTHERAPY (OTHER THAN OF A MULTIPLE-FAMILY GROUP) DoD GROUP PSYCHOTHERAPY (OTHER THAN OF A MULTIPLE-FAMILY GROUP) DoD FAMILY PSYCHOTHERAPY (CONJOINT PSYCHOTHERAPY) (WITH PATIENT PRESENT), 50 MINUTES DoD GROUP PSYCHOTHERAPY (OTHER THAN OF A MULTIPLE-FAMILY GROUP) DoD GROUP PSYCHOTHERAPY (OTHER THAN OF A MULTIPLE-FAMILY GROUP) [facility] INJECTION, KETOROLAC TROMETHAMINE, PER 15 MG SKIN TEST; TUBERCULOSIS, INTRADERMAL DoD GROUP PSYCHOTHERAPY (OTHER THAN OF A MULTIPLE-FAMILY GROUP) DoD GROUP PSYCHOTHERAPY (OTHER THAN OF A MULTIPLE-FAMILY GROUP) DoD GROUP PSYCHOTHERAPY (OTHER THAN OF A MULTIPLE-FAMILY GROUP) [facility] FAMILY PSYCHOTHERAPY (CONJOINT PSYCHOTHERAPY) (WITH PATIENT PRESENT), 50 MINUTES DoD GROUP PSYCHOTHERAPY (OTHER THAN OF A MULTIPLE-FAMILY GROUP) INDIVIDUAL PSYCHOTHERAPY, INSIGHT ORIENTED, BEHAVIOR MODIFYING AND/OR SUPPORTIVE, IN AN OFFICE OR OUTPATIENT FACILITY, APPROXIMATELY 45 TO 50 MINUTES [id number] WITH THE PATIENT [facility] HRT FAIL ASSESS (INC ASSESS ALL FOLLOW COMPS) (CAD):BLOOD PRESS GLORIA (1999F) LEVL ACTVTY ASSESS (1003F) CLIN SYMPT VOL OVERLOAD ASSESS (4F) WT,REC () CLIN SIGNS VOL OVERLOAD ASSESS () [facility] PRESCRIPTION DRUG, GENERIC [facility] WRIST HAND ORTHOSIS, WRIST EXTENSION CONTROL COCK-UP, NON MOLDED, PREFABRICATED, [id number] [facility] INFLUENZA VIRUS VACCINE, TRIVALENT, LIVE (LAIV3), FOR INTRANASAL USE 011 [facility] PSYCHIATRIC DIAGNOSTIC INTERVIEW EXAMINATION 011 [facility] AUDIOMETRIC TESTING OF GROUPS [facility] OPHTHALMOLOGICAL SERVICES: MEDICAL EXAMINATION AND EVALUATION, WITH INITIATION OR CONTINUATION OF DIAGNOSTIC AND TREATMENT PROGRAM; INTERMEDIATE, ESTABLISHED PATIENT [facility] ANTHRAX VACCINE, FOR SUBCUTANEOUS OR INTRAMUSCULAR USE [facility] FITTING OF SPECTACLES, EXCEPT FOR APHAKIA; MONOFOCAL [facility] INFLUENZA VIRUS VACCINE, PANDEMIC FORMULATION, H1N1 [facility] IMMUNIZATION ADMINISTRATION BY INTRANASAL OR ORAL ROUTE; 1 VACCINE (SINGLE OR COMBINATION VACCINE/TOXOID) [facility] INJECTION, KETOROLAC TROMETHAMINE, PER 15 MG [facility] Social History Combined list of available smoking, tobacco, and other social history from [facility] and [facility] facilities. Social History Type Response Date Comment Sour e Tobacco smoking status [place] FORMER USER 01/05/2023 [facility] of [facility] History of tobacco use [place] USER E VERY DAY 11/20/2021 [facility] History of tobacco use [place] US[place] 11/20/2020 [facility] History of tobacco use [place]-TO[place] USE [place] UNSEL NO 05/30/2019 [facility] History of tobacco use TOBACCO USER [facility] 10/13/2017 [facility] This section is an empty social history section. [facility] Plan of Care List of future care activities from Department [facility] facilities. Additional future care activities may be listed in the Assessment and Plan section. Date/Time Care Activity Care Activity Detail Facili ty 11/08/2024 AMBULATORY - MEDICINE AMBULATORY - MEDICI NE [facility] 02/13/2025 AMBULATORY - MEDICINE AMBULATORY - MEDICI NE [facility] Advance Directives List of completed, amended, or rescinded Advance Directives on record at Department of [facility] facilities. An actual copy of the Directive is not included. Date Advance Directive Provider Source 08/29/2015 ADVANCE DIRECTIVE DISCUSSION KATARINA ERNST NP, [place] [facility]
--- OUTSIDE RECORDS SUMMARY | 2024-11-01 11:13 | XMS_ITS | Referral Summary ---
Author Organization [facility] Address [address] [place] [address] Care Team Providers Care Teacher Physically Impaired Name Role Phone Unknown, Notinfile Primary Care [...] on file Medical Devices Implanted Type [facility] Device Identifier Shelf Expiration Date Model / Serial / Lot [employer] Corkscrew Suturetape 5.5mm 14.7mm Bioabsorbable Full Thread 1.3mm Ar-1927bct - [id number] Implanted:Qty: 1 on 08/15/2023 by Derek Becerril MD at [facility] [place] Left: Shoulder [employer] 06/11/2025 AR-1927BCT / / [id number] [employer] Ar-2324 Bcm Swivelock 4.75mm 24.5mm Self Punch Vent Shoulder Beech Bottom Suture - [id number] Implanted:Qty: 1 on 08/15/2023 by Derek Becerril MD at [facility] [place] Left: Shoulder [employer] 04/11/2027 AR-2324BCM / / [id number] [employer] Ar-2324 Bcm Swivelock 4.75mm 24.5mm Self Punch Vent Shoulder Beech Bottom Suture - [id number] Implanted:Qty: 1 on 08/15/2023 by Derek Becerril MD at [facility] [place] Left: Shoulder [employer] 04/11/2027 AR-2324BCM / / [id number] [employer] Corkscrew Suturetape 5.5mm 14.7mm Bioabsorbable Full Thread 1.3mm Ar-1927bct - [id number] Implanted:Qty: 1 on 12/19/2023 by Derek Becerril MD at [facility] [employer] 09/11/2025 AR-192 7BCT / / [id number] [employer] Ar-2324 Bcm Swivelock 4.75mm 24.5mm Self Punch Vent Shoulder Beech Bottom Suture - [id number] Implanted:Qty: 1 on 12/19/2023 by Derek Becerril MD at [facility] [place] Right: Shoulder [employer] 06/11/2027 AR-2324BCM / / [id number] [employer] Ar-2324 Bcm Swivelock 4.75mm 24.5mm Self Punch Vent Shoulder Beech Bottom Suture - [id number] Implanted:Qty: 1 on 12/19/2023 by Derek Becerril MD at [facility] [place] Right: Shoulder [employer] 06/11/2027 AR-2324BCM / / [id number] [employer] Migratory Game Bird Biologist Large Eyelet Pectoralis Button Fixation Latex Free Ar-2267 - [id number] Implanted:Qty: 1 on 12/19/2023 by Derek Becerril MD at [facility] [place] Right: Shoulder [employer] 09/11/2028 AR-2267 / / [id number] Insurance [facility] Care Teams Teacher Physically Impaired Relationship Specialty Start Date End Date Unknown, Notinfile PCP - General 06/29/23
[2024-11-01 12:01] VITALS: BP 155/102; PULSE 94; RESP 16; O2SAT 97
[2024-11-01 12:48] VITALS: BP 132/99; PULSE 95; RESP 18; TEMP 36.2; O2SAT 98
== END 2024-11-01 12:49 | disposition home or self-care (01) ==
PROVIDERS: Emergency Provider Physician Assistant
DX: J10.1 Influenza due to other identified influenza virus with other respiratory manifestations (principal); Z20.822 Contact with and (suspected) exposure to COVID-19; J44.9 Chronic obstructive pulmonary disease, unspecified; I10 Essential (primary) hypertension; Z87.891 Personal history of nicotine dependence
CPT/HCPCS: 71046; 87637; 99283; A9270